=== PATIENT | female | born 1960 | race Asian ===

== ENCOUNTER 2020-06-13 07:55 | Outpatient (CLI) | payer OTHER, SELFPAY ==
--- NOTE | 2020-06-13 09:06 | ECG_ITS ---
Measurements Intervals [place] Rate: 82 P: 49 ME: 136 QRS: 30 QRSD: 71 T: 34 QT: 385 QTc: 450 Interpretive Statements SINUS RHYTHM BASELINE ARTIFACT- I, III, AVR, AVL, AVF NORMAL ECG Electronically Signed On 06-13-2020 10:01:45 CDT by Jamar Bean D.O.
[2020-06-13 09:32] LABS: Hematocrit 41.8 % (37.0-47.0); Hemoglobin 14.2 g/dL (12.0-15.0)
[2020-06-13 09:43] LABS: Anion Gap 8 mmol/L (8-16); Blood Urea Nitrogen 14 mg/dL (7-17); Calcium 9.2 mg/dL (8.4-10.2); Carbon Dioxide 26 mmol/L (22-30); Chloride 102 mmol/L (98-107); Estimated Glomerular Filt Rate > 60; Glucose 226 mg/dL (65-105); Potassium 4.3 mmol/L (3.4-5.0); Sodium 136 mmol/L (137-145)
== END 2020-06-13 07:56 | disposition home or self-care (01) ==
LOC: ANHSURGERY 07:59
PROVIDERS: Anesthesiology; PCP Family Medicine; Visit Provider Plastic Surgery
DX: Z01.818 Encounter for other preprocedural examination (principal); I10 Essential (primary) hypertension; E11.9 Type 2 diabetes mellitus without complications; D64.9 Anemia, unspecified
CPT/HCPCS: 36415; 80048; 85014; 85018; 93005

== ENCOUNTER 2020-09-11 11:30 | Emergency (ER) | payer OTHER, SELFPAY ==
--- NOTE | ~2020-09-11 | XR_ITS ---
XR chest 1V portable 09/11/2020 12:47 Indication: Chest pain Procedure: AP portable chest Comparison: No prior studies for comparison. Findings: Heart size normal. Shallow inspiration. No focal air space disease, pulmonary edema, pleura l effusion or suspected pneumothorax. No acute osseous abnormality. Impression: 1: No acute cardiopulmonary disease. Reviewed, dictated and finalized at location A. ITECTURAL TECHNICIAN Impression: 1: No acute cardiopulmonary disease.
[2020-09-11 11:36] VITALS: BP 140/81; PULSE 80; RESP 16; TEMP 36.7; O2SAT 100
--- NOTE | 2020-09-11 12:18 | ED.BACK ---
HPI - Back Pain/Injury General Chief Complaint: Back Pain/Injury Stated Complaint: back pain Time Seen by Provider: 09/11/20 11:56 Source: patient, family, RN notes reviewed and old records reviewed History of Present Illness HPI Narrative: 59-year-old female presents to emergency department for low back pain for the past 5 to 7 days. Patient states the pain radiates down to both her legs. She was seen at a local emergency department recently, and prescribed pain medication and steroids. She also states that she has been feeling weak. No chest pain or shortness of breath. She does report some chronic abdominal pain. No nausea or vomiting. No urinary complaints. No dysuria, frequency, or urgency. Related Data Home Medications Medication Instructions Recorded Confirmed atorvastatin 10 mg PO HS 06/13/20 06/13/20 ferrous sulfate 325 mg PO QAM 06/13/20 06/13/20 gabapentin 400 mg PO QID 06/13/20 06/13/20 hydrochlorothiazide 25 mg PO QAM 06/13/20 06/13/20 insulin glargine [Basaglar KwikPen 12 unit SUBCUT QAM 06/13/20 06/13/20 U-100 Insulin] insulin glargine [Basaglar KwikPen 16 unit SUBCUT QPM 06/13/20 06/13/20 U-100 Insulin] insulin lispro [Admelog U-100 8 unit SUBCUT TID 06/13/20 06/13/20 Insulin lispro] losartan 100 mg PO QAM 06/13/20 06/13/20 meloxicam 7.5 mg PO PRN PRN 06/13/20 06/13/20 multivitamin [Tab-A-Kelly] 1 tablet PO QAM 06/13/20 06/13/20 Allergies Allergy/AdvReac Type Severity Reaction Status Date / Time No Known Allergies Allergy Verified 06/13/20 08:10 Review of Systems Review of Systems: Narrative: CONSTITUTIONAL: Denies fever, chills, or sweats. EYES: Denies visual changes, redness, or discharge. ENT: Denies rhinorrhea, congestion, sore throat, or otalgia. CARDIOVASCULAR: Denies chest pain, palpitations, or edema. RESPIRATORY: Denies cough or dyspnea. GASTROINTESTINAL: Denies abdominal pain, nausea, vomiting, or diarrhea. GENITOURINARY: Denies dysuria or hematuria. SKIN: Denies rash or itching. MUSCULOSKELETAL: Denies back pain, joint pain, or myalgia. NEUROLOGIC: Denies headache, numbness, dizziness, or weakness. PSYCHIATRIC: Denies anxiety or depression. All systems reviewed & are unremarkable except as noted in HPI and below (ROS) PMFSH Social History Social History Smoking status: Never smoker Spiritual care concerns: No Exam Narrative: Exam Narrative: GENERAL: Well-appearing, well-nourished, and in no acute distress. HEAD: Normocephalic, atraumatic. EYES: PERRLA and EOMI. ENT: Nares clear, no rhinorrhea or epistaxis. Mucous membranes moist. NECK: Supple. CHEST: Clear to auscultation. No respiratory distress. HEART: Regular rate and rhythm. No murmur heard. Normal peripheral pulses. ABDOMEN: Soft, nontender, nondistended, normal active bowel sounds. EXTREMITIES: Normal range of motion. No edema. SKIN: Warm, dry, no rash. NEURO: No focal deficits. Alert and oriented x3. Equal sensation to light touch of lower extremities bilaterally PSYCH: Slow responses Course Reevaluation(s) Reevaluation #1: 14:35 -reevaluated patient, no new complaints. At this time, I see no emergent condition causing this patient's weakness symptoms. Patient had a CT done at a local emergency department, which showed L5/L1 disc bulging. This is likely causing her back pain. Patient is not having any bowel or bladder incontinence. Low suspicion for cauda equina or epidural abscess. Counseled patient and family to follow-up with primary care physician as soon as possible. Return to emergency department if symptoms persist, worsen, or other concerns. Vital Signs Vital signs: Vital Signs Temperature 36.7 C 09/11/20 11:36 Pulse Rate 80 09/11/20 11:36 Respiratory Rate 16 09/11/20 11:36 Blood Pressure 140/81 09/11/20 11:36 Pulse Oximetry 100 09/11/20 11:36 Temperature 36.7 C 09/11/20 11:36 Pulse Rate 84 09/11/20 14:57 Respi
--- NOTE | 2020-09-11 12:20 | ECG_ITS ---
Measurements Intervals [place] Rate: 72 P: 31 MN: 153 QRS: 11 QRSD: 81 T: 18 QT: 381 QTc: 418 Interpretive Statements SINUS RHYTHM EARLY PRECORDIAL R/S TRANSITION BORDERLINE T WAVE ABNORMALITY- INFERIOR LEADS BASELINE ARTIFACT- V6 BORDERLINE ECG Electronically Signed On 09-11-2020 13:56:06 ELECTRONICS MECHANIC by Jamar Bean D.O.
[2020-09-11] MEDS: SODIUM CHLORIDE 0.9% IV 1,000 ML 999 ML IV CONT (12:45)
[2020-09-11] MEDS: KETOROLAC 30 MG/ML VIAL (*BKC) IV PUSH (12:45)
[2020-09-11 13:05] LABS: Basophils Percent Auto 0.2 % (0.2-1.2); Eosinophils Percent Auto 0.1 % (0-4.4); Hematocrit 41.8 % (37.0-47.0); Hemoglobin 14.3 g/dL (12.0-15.0); Immature Granulocyte Absolute 0.06 K/mm3 (0.00-0.031); Immature Granulocyte Percent A 0.5 % (0-0.5); Lymphocytes Absolute Auto 2.51 K/mm3 (0.9-3.2); Lymphocytes Percent Auto 20.6 % (18.3-44.2); Mean Corpuscular HGB Conc 34.2 g/dl (32-36); Mean Corpuscular Hemoglobin 29.8 pg (26-34); Mean Corpuscular Volume 87.1 fl (80-100); Mean Platelet Volume 9.4 fl (7.4-10.4); Monocytes Absolute Auto 1.1 K/mm3 (0.1-0.6); Monocytes Percent Auto 8.6 % (2.6-8.5); Neutrophils Absolute Auto 8.6 K/mm3 (1.3-6.7); Platelet Count Result 371 k/mm3 (150-375); Red Cell Distribution Width 12.7 % (11.5-14.5); White Blood Count 12.2 K/mm3 (4.5-10.0)
[2020-09-11 13:38] LABS: Alanine Aminotransferase 38 U/L (4-35); Alkaline Phosphatase 106 U/L (38-126); Anion Gap 6 mmol/L (8-16); Aspartate Amino Transferase 43 U/L (14-36); Bilirubin,Total 0.7 mg/dL (0.2-1.3); Blood Urea Nitrogen 19 mg/dL (7-17); Calcium 9.3 mg/dL (8.4-10.2); Carbon Dioxide 32 mmol/L (22-30); Chloride 97 mmol/L (98-107); Estimated CRCL calculation 57 ml/min; Estimated Glomerular Filt Rate > 60; Glucose 183 mg/dL (65-105); Potassium 3.9 mmol/L (3.4-5.0); Sodium 135 mmol/L (137-145)
[2020-09-11 14:57] VITALS: BP 148/70; PULSE 84; RESP 16; O2SAT 100
== END 2020-09-11 14:59 | disposition home or self-care (01) ==
PROVIDERS: Emergency Provider Emergency Medicine; PCP Family Medicine
DX: M51.9 Unspecified thoracic, thoracolumbar and lumbosacral intervertebral disc disorder (principal); M54.5 Low back pain
CPT/HCPCS: 36415; 71045; 80053; 83735; 84443; 85025; 93005; 96361; 96374; 99284; J1885; J7030

== ENCOUNTER 2020-10-31 07:43 | Outpatient (CLI) | payer OTHER, SELFPAY ==
--- NOTE | ~2020-10-31 | MM_ITS ---
EXAMINATION: MM screening [place] BI w addi HISTORY: Screening mammogram TECHNIQUE: Craniocaudal and mediolateral oblique 3-D tomosynthesis images were obtained and synthetic 2-D images were generated. CAD analysis was submitted and interpreted. COMPARISON: No prior mammogram is available for comparison at this institution. BREAST PARENCHYMAL COMPOSITION: There are scattered areas of fibroglandular density. FINDINGS: RIGHT BREAST: There is no evidence of suspicious mass, calcification, or architectural distortion to suggest malignancy. LEFT BREAST: There is focal asymmetry in the middle third of the central breast. IMPRESSION: 1. Left breast focal asymmetry which may represent the patient's baseline however no comparison is cu rrently available. 2. Comparison with prior mammograms is necessary. BI-RADS Category 0: Incomplete: Needs comparison with prior mammograms. Reviewed, dictated and finalized at location A. ER BRACE BLOCK MACHINE OPERATOR IMPRESSION: 1. Left breast focal asymmetry which may represent the patient's baseline howev er no comparison is currently available. 2. Comparison with prior mammograms is necessary. BI-RADS Category 0: Incomplete: Needs comparison with prior mammograms.
== END 2020-10-31 07:44 | disposition home or self-care (01) ==
PROVIDERS: PCP Family Medicine; Visit Provider Family Medicine
DX: Z12.31 Encounter for screening mammogram for malignant neoplasm of breast (principal); R92.8 Other abnormal and inconclusive findings on diagnostic imaging of breast
CPT/HCPCS: 77063; 77067

== ENCOUNTER 2021-10-23 00:35 | Day surgery (SDC) | payer OTHER, SELFPAY ==
[2021-10-14 09:06] VITALS: BMI 24.5
--- NOTE | 2021-10-22 11:14 | PM.HPGS ---
History of Present Illness History of Present Illness Consent: Risks, benefits, and alternatives have been discussed and questions answered. Patient agrees to proceed with procedure. Chief complaint: constipation, rectal pain Narrative: Esdras Bustos is a 60 year old female who has developed severe constipation over the last couple of years. Review of Systems Review of Systems: All systems reviewed & are unremarkable except as noted in HPI and below PMFSH Past Medical History Medical History Abdominal pain Constipation Diabetes HLD (hyperlipidemia) HTN (hypertension) Hypothyroidism Social History Social History Smoking status: Never smoker Alcohol intake: never Substance use: never Substance use type: does not use Living arrangements: with family Spiritual care concerns: No Meds Home Medications and Allergies Home Medications Medication Instructions Recorded Confirmed Type atorvastatin 10 mg PO HS 06/13/20 10/14/21 History gabapentin 400 mg PO QID 06/13/20 10/14/21 History hydrochlorothiazide 25 mg PO QAM 06/13/20 10/14/21 History insulin glargine [Basaglar KwikPen 12 unit SUBCUT QAM 06/13/20 10/14/21 History U-100 Insulin] insulin glargine [Basaglar KwikPen 16 unit SUBCUT QPM 06/13/20 10/14/21 History U-100 Insulin] insulin lispro [Admelog U-100 8 unit SUBCUT TID 06/13/20 10/14/21 History Insulin lispro] losartan 100 mg PO QAM 06/13/20 10/14/21 History Allergies Allergy/AdvReac Type Severity Reaction Status Date / Time No Known Allergies Allergy Verified 10/23/21 07:44 Exam Resp: Auscultation: clear to auscultation bilaterally Cardio: Rate: regular rate Rhythm: regular rhythm GI: GI Palp: Yes Soft to palpation and No Tenderness to palpation present (GI) Assessment and Plan Assessment and plan (1) Constipation: Code(s): K59.00 - Constipation, unspecified Status: Acute Assessment and Plan: Colonoscopy with possible biopsy or polypectomy or cautery or injection of substances.
[2021-10-23 07:30] VITALS: BP 138/61; PULSE 88; RESP 18; TEMP 36.6; O2SAT 100; BMI 23.8
--- NOTE | 2021-10-23 07:48 | SUR.PREOP ---
Patient speaks limited Slovak. at bedside and translated for preop questions/assessment and also for consent.
[2021-10-23 08:06] LABS: Glucose Point of Care 122 mg/dl (65-105)
[2021-10-23] MEDS: LACTATED RINGERS 1,000 ML 150 ML IV CONT (08:10)
--- NOTE | 2021-10-23 08:23 | P.PNAN_ITS ---
Anes - Initial Pre Proc Eval Procedure: Operation Date: 10/23/21 08:45 Proposed Procedures p Colonoscopy - Rolando Howe MD Date/Time: 10/23/21 08:23 Surgeon: Rolando Howe MD Pre Op Diagnosis: constipation, rectal pain Patient Data Age: 60 Gender: F Height: 1.57 m Weight: 59 kg Last Vital Signs Temp 97.8 F 10/23/21 07:30 Pulse 88 10/23/21 07:30 Resp 18 10/23/21 07:30 BP 138/61 10/23/21 07:30 Pulse Ox 100 10/23/21 07:30 Allergies Allergy/AdvReac Type Severity Reaction Status Date / Time No Known Allergies Allergy Verified 10/23/21 07:44 Home Medications Medication Instructions Recorded Confirmed Type atorvastatin 10 mg PO HS 06/13/20 10/14/21 History gabapentin 400 mg PO QID 06/13/20 10/14/21 History hydrochlorothiazide 25 mg PO QAM 06/13/20 10/14/21 History insulin glargine [Basaglar KwikPen 12 unit SUBCUT QAM 06/13/20 10/14/21 History U-100 Insulin] insulin glargine [Basaglar KwikPen 16 unit SUBCUT QPM 06/13/20 10/14/21 History U-100 Insulin] insulin lispro [Admelog U-100 8 unit SUBCUT TID 06/13/20 10/14/21 History Insulin lispro] losartan 100 mg PO QAM 06/13/20 10/14/21 History Laboratory Tests 10/23/21 07:53 POC Capillary Glucose 122 mg/dl H mg/dl (65-105) Patient hx anesthesia problems: none Family hx anesthesia problems: none Results Review: All pre-operative results and documents have been reviewed as part of the pre-operative evaluation. [facility] Past Medical History Medical History (Updated 09/10/21 @ 11:26 by GARETH Raymundo) Abdominal pain Constipation Diabetes HLD (hyperlipidemia) HTN (hypertension) Hypothyroidism Social History Social History Smoking status: Never smoker Alcohol intake: never Substance use: never Substance use type: does not use Living arrangements: with family Spiritual care concerns: No Anes - Eval Final PreProcedure Day of Procedure 10/23/21 08:23 Patient weight: normal Heart: regular rate and rhythm Lungs: clear to auscultation Airway: Mallampati scale class II Neurological: alert and oriented Last oral intake: >/= 8 hours ASA classification: III Emergent: no Anesthetic plan: proceed Anesthesia type and monitoring: general GIVS and standard monitoring Results Review: All pre-operative results and documents have been reviewed as part of the pre-operative evaluation. Informed Consent: The patient's anesthetic plan and its attendant risks and benefits were discussed with the patient/family/POA. Questions were solicited and answers provided to the satisfaction of the patient/family/POA.
[2021-10-23 08:57] VITALS: BP 100/44; PULSE 90; RESP 26; O2SAT 92
[2021-10-23 09:07] VITALS: BP 97/45; PULSE 82; RESP 27; O2SAT 100
[2021-10-23 09:11] LABS: Glucose Point of Care 115 mg/dl (65-105)
[2021-10-23 09:17] VITALS: BP 101/46; PULSE 80; RESP 28; O2SAT 100
== END 2021-10-23 09:34 | disposition home or self-care (01) ==
PROVIDERS: PCP Family Medicine; Visit Provider Internal Medicine Gastroenterology
PROC: 0DJD8ZZ Inspection of Lower Intestinal Tract, Via Natural or Artificial Opening Endoscopic (ICD-10-PCS; CPT 45378; principal; 2021-10-23 08:45)
DX: Z12.11 Encounter for screening for malignant neoplasm of colon (principal); K64.8 Other hemorrhoids; K59.00 Constipation, unspecified; K62.89 Other specified diseases of anus and rectum; Z79.4 Long term (current) use of insulin; E11.9 Type 2 diabetes mellitus without complications; I10 Essential (primary) hypertension; E78.49 Other hyperlipidemia; E03.9 Hypothyroidism, unspecified
CPT/HCPCS: 45378; 82948; J2704; J7120

== ENCOUNTER 2022-05-18 07:23 | Outpatient (CLI) | payer OTHER, SELFPAY ==
--- NOTE | ~2022-05-18 | MM_ITS ---
EXAMINATION: MM screening [place] BI w addi HISTORY: Screening TECHNIQUE: Craniocaudal and mediolateral oblique 3-D tomosynthesis images were obtained and synthetic 2-D images were generated. CAD analysis was submitted and interpreted. COMPARISON: Comparison to multiple prior studies sequentially, with oldest reviewed study dated 04/14. BREAST PARENCHYMAL COMPOSITION: There are scattered areas of fibroglandular density. FINDINGS: There is no evidence of suspicious mass, calcification, or architectural distortion to sugg est malignancy in either breast. There has been no suspicious interval change. IMPRESSION: 1. No mammographic evidence of malignancy. 2. Recommend routine screening mammography in one year. BI-RADS Category 1: Negative Reviewed, dictated and finalized at location A.
== END 2022-05-18 07:24 | disposition home or self-care (01) ==
LOC: ANHIMG 07:25
PROVIDERS: PCP Family Medicine; Visit Provider Family Medicine
DX: Z12.31 Encounter for screening mammogram for malignant neoplasm of breast (principal)
CPT/HCPCS: 77063; 77067

== ENCOUNTER 2023-04-27 14:40 | Outpatient (CLI) | payer OTHER, SELFPAY ==
--- NOTE | ~2023-04-27 | XR_ITS ---
Lumbosacral Spine: AP, oblique, and lateral views Clinical History: Pain Findings: The normal lordotic curve is maintained. The vertebral bodies and posterior elements are i ntact. The intervertebral disc spaces are preserved. There is moderate to advanced facet arthropathy at L4-L5 and L5-S1. The sacroiliac joints are normally outlined. Impression: Moderate to advanced facet arthropathy at L4-L5 and L5-S1. Reviewed, dictated and finalized at location . Impression: Moderate to advanced facet arthropathy at L4-L5 and L5-S1.
--- NOTE | ~2023-04-27 | XR_ITS ---
EXAM: XR knee RT 3V, XR knee LT 3V DATE: 04/27/2023 15:22 HISTORY: PAIN OF BILATERAL KNEE JOINTS . COMPARISON: None available. FINDINGS: Decreased mineralization. No fracture or dislocation. No lytic or blastic lesion. Moderate bilateral medial joint space narrowing. Mild tricompartmental osteophytosis. No erosion or periostea l change. Vascular calcifications. IMPRESSION: Tricompartmental bilateral knee osteoarthritis, moderate in the medial compartments. Reviewed, dictated and finalized at location K. IMPRESSION: Tricompartmental bilateral knee osteoarthritis, moderate in the med ial compartments.
== END 2023-04-27 14:41 | disposition home or self-care (01) ==
PROVIDERS: PCP Family Medicine; Visit Provider Family Medicine
DX: M54.50 Low back pain, unspecified (principal); M17.0 Bilateral primary osteoarthritis of knee
CPT/HCPCS: 72110; 73562

== ENCOUNTER 2023-05-24 10:05 | Emergency (ER) | payer OTHER, SELFPAY ==
--- NOTE | ~2023-05-24 | XR_ITS ---
Portable chest x-ray Comparison: 09/11/2020 Clinical History: Fever, weakness Findings: Lungs are clear, without focal consolidation or pleural effusion. Cardiomediastinal silho uette is stable. Bones and soft tissues are unremarkable. Impression: Normal chest. Reviewed, dictated and finalized at [facility]. Impression: Normal chest.
--- NOTE | 2023-05-24 10:26 | ECG_ITS ---
Measurements Intervals [place] Rate: 97 P: 38 TX: 142 QRS: 29 QRSD: 86 T: 40 QT: 344 QTc: 438 Interpretive Statements SINUS RHYTHM NORMAL ECG COMPARED TO ECG 09/11/2020 12:42:03 NO SIGNIFICANT CHANGES Electronically Signed On 05-24-2023 12:05:08 CDT by Liam Sharma M.D.
[2023-05-24 10:35] VITALS: BP 126/60; PULSE 98; RESP 20; TEMP 38.3; O2SAT 99
[2023-05-24 11:25] LABS: Basophils Percent Auto 0.5 % (0.2-1.2); Eosinophils Percent Auto 0.2 % (0-4.4); Hematocrit 36.9 % (37.0-47.0); Hemoglobin 12.5 g/dL (12.0-15.0); Immature Granulocyte Absolute 0.03 K/mm3 (0.00-0.031); Immature Granulocyte Percent A 0.5 % (0-0.5); Lymphocytes Absolute Auto 0.93 K/mm3 (0.9-3.2); Lymphocytes Percent Auto 16.5 % (18.3-44.2); Mean Corpuscular HGB Conc 33.9 g/dl (32-36); Mean Corpuscular Hemoglobin 29.7 pg (26-34); Mean Corpuscular Volume 87.6 fl (80-100); Mean Platelet Volume 9.6 fl (7.4-10.4); Monocytes Absolute Auto 0.9 K/mm3 (0.1-0.6); Monocytes Percent Auto 16.2 % (2.6-8.5); Neutrophils Absolute Auto 3.7 K/mm3 (1.3-6.7); Neutrophils Percent Auto 66.1 % (45.5-73.1); Platelet Count Result 245 k/mm3 (150-375); Red Blood Count 4.21 M/mm3 (4.2-5.4); Red Cell Distribution Width 13.4 % (11.5-14.5); White Blood Count 5.6 K/mm3 (4.5-10.0)
[2023-05-24 11:35] LABS: Lactic Acid Reflex 1.6 mmol/L (0.7-2.0)
[2023-05-24 11:39] LABS: Appearance Urine Clear (Clear); Bacteria Urine None Seen /hpf; Bilirubin Urine Negative (Negative); Blood Urine Negative (Negative); Color Urine Yellow (Yellow); Glucose Urine UA Negative (Negative); Ketones Urine Negative (Negative); Leukocyte Esterase Ur 1+ LEU/UL (Negative); Need Manual Microscopic Reviewed; Nitrate Urine Negative (Negative); Non Pathogenic Casts 0-2; Protein Urine Negative (Negative); RBC Urine 0-2 /hpf (0-2); Specific Grav Ur 1.006 (1.001-1.035); Squamous Epithelial Cell Urine Occasional /hpf (Few); Urobilinogen Urine 0.2 mg/dL (<2.0); WBC Urine 0-5 /hpf; pH Urine 7.5 (5.0-9.0)
[2023-05-24 11:41] LABS: Add Urine Microscopic? YES
[2023-05-24 11:46] LABS: Alanine Aminotransferase 34 U/L (6-35); Albumin Level 4.5 g/dL (3.5-5.1); Alkaline Phosphatase 86 U/L (38-126); Anion Gap 14 mmol/L (8-16); Aspartate Amino Transferase 40 U/L (14-36); Bilirubin,Total 0.7 mg/dL (0.2-1.3); Blood Urea Nitrogen 14 mg/dL (7-17); Carbon Dioxide 24 mmol/L (22-30); Chloride 95 mmol/L (98-107); Estimated CRCL calculation 48 ml/min; Estimated Glomerular Filt Rate > 60; Glucose 198 mg/dL (65-110); Lipase 166 U/L (23-300); Potassium 3.6 mmol/L (3.4-5.0); Sodium 133 mmol/L (137-145)
[2023-05-24] MEDS: SODIUM CHLORIDE 0.9% IV 1,000 ML 999 ML IV CONT (11:46)
[2023-05-24] MEDS: IBUPROFEN IV 400 MG in SODIUM CHLORIDE 0.9% IV 100 ML 200 MG IVPB (11:48)
--- NOTE | 2023-05-24 11:58 | ED.WEAKNESS ---
HPI - Weakness General Chief complaint: Weakness Stated complaint: weakness, all over pain Time Seen by Provider: 05/24/23 10:54 Source: patient Mode of arrival: ambulatory Limitations: no limitations History of Present Illness HPI Narrative: This is a 62-year-old female that presents to the emergency department for generalized weakness. Reports myalgias over the last 2 days. Reports feeling unsteady when walking. Patient noted to be febrile in the ED. Reporting some dysuria. Denies cough, chest pain, shortness of breath, abdominal pain, vomiting, or diarrhea. Related Data Home Medications Medication Instructions Recorded Confirmed atorvastatin 10 mg tablet 10 mg PO HS 06/13/20 10/14/21 gabapentin 400 mg capsule 400 mg PO QID 06/13/20 10/14/21 hydrochlorothiazide 25 mg tablet 25 mg PO QAM 06/13/20 10/14/21 insulin glargine 100 unit/mL (3 12 unit subcut QAM 06/13/20 10/14/21 mL) subcutaneous pen (Basaglar KwikPen U-100 Insulin) insulin glargine 100 unit/mL (3 16 unit subcut QPM 06/13/20 10/14/21 mL) subcutaneous pen (Basaglar KwikPen U-100 Insulin) insulin lispro 100 unit/mL 8 unit subcut TID 06/13/20 10/14/21 subcutaneous solution (Admelog U-100 Insulin lispro) losartan 100 mg tablet 100 mg PO QAM 06/13/20 10/14/21 Allergies Allergy/AdvReac Type Severity Reaction Status Date / Time No Known Allergies Allergy Verified 05/24/23 10:34 Review of Systems Review of Systems: CONSTITUTIONAL: Reports fever EYES: Denies visual changes ENT: Denies rhinorrhea, congestion, sore throat CARDIOVASCULAR: Denies chest pain, or edema. RESPIRATORY: Denies cough or dyspnea. GASTROINTESTINAL: Denies abdominal pain, nausea, vomiting, or diarrhea. GENITOURINARY: Reports dysuria MUSCULOSKELETAL: Reports back pain, joint pain, and myalgia. NEUROLOGIC: Reports generalized weakness. All systems reviewed & are unremarkable except as noted in HPI and below PMFSH Past Medical History Medical History Abdominal pain Constipation Diabetes HLD (hyperlipidemia) HTN (hypertension) Hypothyroidism Social History Social History Smoking status: Never smoker Alcohol intake: never Substance use: never Substance use type: does not use Living arrangements: with family Spiritual care concerns: No Exam Narrative: GENERAL: Well-appearing, well-nourished, and in no acute distress. HEAD: Normocephalic, atraumatic. EYES: PERRLA and EOMI. ENT: Nares clear, no rhinorrhea or epistaxis. Mucous membranes moist. Oropharynx without tonsillar hypertrophy exudate or other lesions. Bilateral TMs pearly grey non-bulging NECK: Supple. No adenopathy or masses. CHEST: Clear to auscultation. No respiratory distress. No wheezes rales or rhonchi HEART: Regular rate and rhythm. No murmur heard. Normal peripheral pulses. ABDOMEN: Soft, nontender, nondistended, normal active bowel sounds. EXTREMITIES: Normal range of motion. No edema. SKIN: Warm, dry, no rash. NEURO: No focal deficits. Alert and oriented x3. Cranial nerves II through XII grossly intact PSYCH: Normal mood and affect Course Course Emergency Course: Patient and family updated on workup and agree with plan of care Vital Signs Vital signs: Vital Signs Temperature 101 F H 05/24/23 10:35 Pulse Rate 98 05/24/23 10:35 Respiratory Rate 20 05/24/23 10:35 Blood Pressure 126/60 05/24/23 10:35 Pulse Oximetry 99 05/24/23 10:35 Oxygen Delivery Room Air 05/24/23 10:35 Temperature 101 F H 05/24/23 10:35 Pulse Rate 98 05/24/23 10:35 Respiratory Rate 20 05/24/23 10:35 Blood Pressure 126/60 05/24/23 10:35 Pulse Oximetry 99 05/24/23 10:35 Oxygen Delivery Room Air 05/24/23 10:35 MDM - Weakness MDM Narrative Medical decision making narrative: Patient presents to the emergency department for myalgias present over t
[2023-05-24 12:06] LABS: Influenza A QL RT-PCR Positive (Negative); Influenza B QL RT-PCR Negative (Negative); SARS-CoV-2 RNA PCR Negative (Negative)
[2023-05-24 13:28] VITALS: BP 125/63; PULSE 83; RESP 18; O2SAT 98
== END 2023-05-24 13:30 | disposition home or self-care (01) ==
PROVIDERS: Emergency Provider Physician Assistant; PCP Family Medicine
DX: J10.1 Influenza due to other identified influenza virus with other respiratory manifestations (principal); E78.5 Hyperlipidemia, unspecified; I10 Essential (primary) hypertension; E03.9 Hypothyroidism, unspecified; E11.9 Type 2 diabetes mellitus without complications; Z20.822 Contact with and (suspected) exposure to COVID-19
CPT/HCPCS: 36415; 71045; 80053; 81001; 83605; 83690; 85025; 87636; 93005; 96361; 96365; 99284; J1741; J7030

== ENCOUNTER 2023-08-03 10:00 | Outpatient (CLI) | payer OTHER, SELFPAY ==
--- NOTE | ~2023-08-03 | MM_ITS ---
EXAMINATION: MM screening [place] BI w addi HISTORY: Screening TECHNIQUE: Craniocaudal and mediolateral oblique 3-D tomosynthesis images were obtained and synthetic 2-D images were generated. CAD analysis was submitted and interpreted. COMPARISON: Comparison to multiple prior studies sequentially, with oldest reviewed study dated 04/14. BREAST PARENCHYMAL COMPOSITION: There are scattered areas of fibroglandular density. FINDINGS: The right breast is stable without evidence for malignancy. There are developing asymmetrie s in the central aspect of the left breast, middle third. IMPRESSION: 1. Evolving left breast asymmetries. 2. Additional mammographic views and possible breast ultrasound are recommended. BI-RADS Category 0: Incomplete: Needs additional imaging evaluation. Reviewed, dictated and finalized at location A. INSPECTOR IMPRESSION: 1. Evolving left breast asymmetries. 2. Additional mammographic views and possible breast ultrasound are recommended . BI-RADS Category 0: Incomplete: Needs additional imaging evaluation.
== END 2023-08-03 10:01 | disposition home or self-care (01) ==
LOC: ANHIMG 10:02
PROVIDERS: PCP Family Medicine; Visit Provider Family Medicine
DX: Z12.31 Encounter for screening mammogram for malignant neoplasm of breast (principal); R92.8 Other abnormal and inconclusive findings on diagnostic imaging of breast
CPT/HCPCS: 77063; 77067

== ENCOUNTER 2023-08-27 08:15 | Outpatient (RCR) | payer OTHER, SELFPAY ==
--- NOTE | 2023-08-16 10:45 | PTOPEVAL1 ---
Assessment and note entered by Teodoro Patel, PT Evaluation Information Assessment Status Evaluation Diagnosis Chronic low back pain Onset 2+ years Subjective Information Reports that she has been having a lot of back, leg, and neck pain. Pain is in both legs. 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 Pain will radiate into her feet when it is bad. Not currently on any exercise routine. No pain medication at this time. Reported Pain Level Pain Score 8: Self Report Assessment PT Clinical Summary Patient presents with signs and symptoms consistent with discogenic low back pain. She presents with significant functional mobility limitation in kay[place] hips with the left being worse. She will benefit from skilled therapy inclusive of gross hip mobility improvement and hip/core strengthening with transition to body mechanics to prevent pain with work related activity. Plan of Care Interventions Electrical Stimulation,Gait Training,Hot Pack/Cold Pack,Manual Therapy,Mechanical Traction,Neuro Re- education,Therapeutic Activities,Therapeutic Exercise PT Services Indicated Yes Treatment Frequency and 2x/week for 6 weeks Duration These treatments will address the objective and functional deficits as defined above. The patient will be advanced safely and appropriately in order for the patient to progress towards his/her prior level of function. Additional exercises will be introduced and as well as a comprehensive home exercise program upon discharge, if needed, ?to ensure carryover of functional gains achieved in the clinic. This treatment plan has been reviewed and agreement upon by the patient.
--- NOTE | 2023-08-16 10:45 | OPREHPOC ---
Outpatient Therapy Plan of Care This is a Multidisciplinary Plan of Care that may contain components documented by all disciplines (PT, OT, and ST.) PT Problem 1 PT Problem #1 Knowledge Deficit PT Goal 1 Goal Independent with HEP Target Visit 4 PT Problem 2 PT Problem #2 Pain PT Goal 1 Goal Report no pain greater than 1/10 when rising in the morning Target Visit 8 PT Problem 3 PT Problem #3 Impaired Range of Motion PT Goal 1 Goal Improve [place] hip abduction ROM to 40 degrees to reduce hip mobility restriction with gait Target Visit 12 PT Goal 2 Goal Improve [place] hip external rotation to 40 degrees to allow for improved squatting ability to disassociate from lumbar mobilization Target Visit 8 PT Problem 4 PT Problem #4 Impaired Gait PT Goal 1 Goal Patient will ambulate with even stride length bilaterally Target Visit 12 PT Problem 5 PT Problem #5 Impaired Functional Mobil PT Goal 1 Goal Patient will demonstrate 5 lifts of 20# with improved body mechanics and no increase in back pain Target Visit 12
--- NOTE | 2023-08-30 08:36 | PTOPDC ---
Assessment and note entered by Teodoro Patel, PT Evaluation Information Assessment Status Discharge - Pt Not Present Diagnosis Chronic low back pain Onset 2+ years Subjective Information Reports that she has been having a lot of back, leg, and neck pain. Pain is in both legs. 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 Pain will radiate into her feet when it is bad. Not currently on any exercise routine. No pain medication at this time. Assessment PT Clinical Summary Patient will be discharged from therapy at this time as she will be leaving the country for an extended period of time. Please refer to last treatment note for discharge status. Plan of Care PT Services Indicated Yes
== END 2023-08-30 10:10 | disposition home or self-care (01) ==
LOC: ANHPT 08:15
PROVIDERS: PCP Family Medicine; Visit Provider Family Medicine
DX: M54.50 Low back pain, unspecified (principal)
CPT/HCPCS: 97110; 97140; 97161; 97530

== ENCOUNTER 2023-11-01 10:21 | Outpatient (CLI) | payer OTHER, SELFPAY ==
--- NOTE | ~2023-11-01 | MM_ITS ---
EXAMINATION: MM diagnostic camilla LT w addi HISTORY: Focal asymmetry of the left breast on screening mammogram TECHNIQUE: Additional 3-D tomosynthesis images of the left breast were performed and synthetic 2-D im ages were generated. CAD analysis was submitted and interpreted. COMPARISON: 08/03/2023, 05/18/2022, 10/31/2020 BREAST PARENCHYMAL COMPOSITION: There are scattered areas of fibroglandular density. FINDINGS: There is a return to baseline fibroglandular appearance with spot compression of the left b reast in the area questioned on screening mammogram. IMPRESSION: 1. No mammographic evidence of malignancy. 2. Recommend routine screening mammography in one year. BI-RADS Category 1: Negative Reviewed, dictated and finalized at location A. SPLANT CASE MANAGER
== END 2023-11-01 10:22 | disposition home or self-care (01) ==
LOC: ANHIMG 10:22
PROVIDERS: PCP Family Medicine; Visit Provider Family Medicine
DX: R92.8 Other abnormal and inconclusive findings on diagnostic imaging of breast (principal)
CPT/HCPCS: 77061; 77065; G0279

== ENCOUNTER 2024-01-19 08:00 | Outpatient (RCR) | payer OTHER, SELFPAY ==
--- NOTE | 2023-12-16 16:16 | OPREHPOC ---
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 PT Problem 2 PT Problem #2 Pain PT Goal 1 Goal 1* pt report pain rating at worst of 7/10 2* radicular pain to R knee at worst 3* radicular pain to L knee at worst 4* self assessment Oswestry rating of 18% limitation PT Problem 3 PT Problem #3 Impaired Flexibility PT Goal 1 Goal pt perform without an increase in pain reported: 1* supine R hip flexion 2* supine L hip flexion 3* R hamstring stretch with SLR to 70' 4* L hamstring stretch with SLR to 70' PT Problem 4 PT Problem #4 Impaired Strength PT Goal 1 Goal improve strength of trunk and hips, to improve posture and stability to spine 1* pt perform 20 reps of mat strengthening exercises
--- NOTE | 2023-12-16 16:17 | PTOPEVAL1 ---
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 She reports pain limits activity of work, home tasks, sleeping. Oswestry self assessment rating of 24% limitation in activity level. 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 She speaks [place], but her assisted with some comprehension issues. With the evaluation: pain is increased with: standing trunk flexion and extension,; supine R hip flexion & IR motions; supine L hip flexion, IR and ER motions and hamstring stretch with supine SLR R and L ; tenderness reported over entire R and L lumbar and sacral areas. Discussed aquatic exercises with pt, she is not interested in them. Skilled PT services are indicated for modalities to decrease pain and spasms; therapeutic exercises to increase trunk and hip strength with education for HEP and body mechanics with house keeping job tasks. Plan of Care Interventions Electrical Stimulation,Hot Pack/Cold Pack,Manual Thera
--- NOTE | 2023-12-16 16:18 | PCPTNOTE ---
pt reports she will be out of town at her daughter's from December 22 to December 27;
--- NOTE | 2024-01-19 11:59 | PTOPDC ---
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 going to see dr. Reported Pain Level Pain Score Self Report Additional Pain Score Comments pain range of the past week 3-9/10; radicular into both R and L LE to foot- intermittent; decrease pain: lie down, rest, heat, over the counter meds increase pain: working, lifting Assessment PT Clinical Summary Esdras has received 8 PT sessions. Compared to the initial evaluation: pain rating from 4-10/10 to 3-9/10; continues to have radicular pain into both LE's to feet intermittent ; self assessment Oswestry rating from 24% to 46% limitation in activity level; sleeping and activity level are disrupted due to pain; Slight increase in hamstring length on R and L, but still painful; supine R and L hip flexion increase her pain in back; Max lifting with both UE's, waist /floor height, 14# then back pain increases. The mechanical traction did give her some pain relief. 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 The goals were partially achieved. Discharge PT services. She is to continue with HEP and contact dr for follow up appointment. She may require additional imaging and/ or referral for pain management or neurologist. Plan of Care PT Services Indicated No
== END 2024-01-19 12:46 | disposition home or self-care (01) ==
LOC: ANHPT 08:00
PROVIDERS: PCP Family Medicine; Visit Provider Family Medicine
DX: M54.50 Low back pain, unspecified (principal)
CPT/HCPCS: 97012; 97110; 97140; 97161; 97530

== ENCOUNTER 2024-02-24 08:10 | Outpatient (CLI) | payer OTHER, SELFPAY ==
--- NOTE | ~2024-02-24 | US_ITS ---
EXAMINATION: US thyroid DATE: 02/24/2024 08:35 INDICATION: Goiter. Thyroid nodule. TECHNIQUE: Multiple ultrasound images of the thyroid were obtained. COMPARISON: None. FINDINGS: The right thyroid lobe measures 2.9 x 0.7 x 1.0 cm. The left thyroid lobe measures 3.3 x 0.7 x 1.3 c m. There is normal echotexture and echogenicity throughout the thyroid gland. No discrete nodules id entified. Normal vascular flow is present. IMPRESSION: 1. Normal thyroid. Reviewed, dictated and finalized at location A. IMPRESSION: 1. Normal thyroid.
== END 2024-02-24 08:11 | disposition home or self-care (01) ==
LOC: ANHIMG 08:12
PROVIDERS: PCP Family Medicine; Visit Provider Internal Medicine
DX: E04.1 Nontoxic single thyroid nodule (principal); E11.9 Type 2 diabetes mellitus without complications; M81.0 Age-related osteoporosis without current pathological fracture
CPT/HCPCS: 76536

== ENCOUNTER 2024-03-09 14:21 | Outpatient (CLI) | payer OTHER, SELFPAY ==
--- NOTE | ~2024-03-09 | DEXA_ITS ---
Bone Density Report Name: HEYDI CABELLO Age: 63 Sex: Female Ethnicity: White Date of : 1960 Indication: postmenopausal; screening for osteoporosis; height loss; Referring Provider: [place] KAUR Study: Bone densitometry was performed. Exam Date: March 09, 2024 Accession number: [id number] Bone Density: Region BMD T-score Z-score Classification AP Spine(L1-L4) 0.794 -2.3 -0.7 Osteopenia Femoral Neck (Left) 0.717 -1.2 0.2 Osteopenia Total Hip (Left) 0.831 -0.9 0.2 Normal Femoral Neck (Right) 0.686 -1.5 -0.1 Osteopenia Total Hip (Right) 0.848 -0.8 0.3 Normal Total Hip Mean 0.840 -0.9 0.3 Normal World Health Organization criteria for BMD impression classify patients as: Normal (T-score at or above -1.0), Osteopenia (T-score between -1.0 and -2.5), or Osteoporosis (T-score at or below -2.5). 10-year Fracture Risk(1): Major Osteoporotic Fracture 8.3% Hip Fracture 0.7% Reported Risk Factors: [place] (), Neck BMD=0.686, BMI=24.7 (1) FRAX(R) Version 3.08. Fracture probability calculated for an untreated patient. Fracture probability may be lower if the patient has received treatment. Clinical Information Provided by Patient: Has used the following medications: Vitamin D Patient maximum height was 63 Menopause Age: 47 No regular weight bearing exercise Does not regularly consume dairy products Drinks caffeinated beverages Onset of menses at age 16 Number of children 3 Impression: The patient has low bone mass, based on the Total Spine T-score. The patient has an estimated ten-year risk of hip fracture of 0.7% and an estimated ten-year risk of major fracture of 8.3%, based on the WHO FRAX algorithm. Discussion: BONE DENSITY IS LOW AT ONE OR MORE SKELETAL SITES. This patient's lowest T-score is low at one or more skeletal sites. It meets the World Health Organization's (WHO) criteria for ?low bone mass? (T-score between -1.0 and -2.5). The patient's 10-year risk of fracture as calculated by FRAX is less than the threshold where pharmacological therapy is recommended by the National Osteoporosis Foundation (NOF). However, all treatment decisions require clinical judgment and consideration of individual patient factors, including patient preferences, comorbidities, previous drug use, risk factors not captured in the FRAX model (e.g., frailty, falls, vitamin D deficiency, increased bone turnover, interval significant decline in bone density) and possible under or overestimation of fracture risk by FRAX. The patient should follow a healthful lifestyle (good nutrition with adequate calcium and vitamin D, and appropriate weight-bearing exercise). Follow-Up: Consider repeating this study in 2 to 3 years to reassess this patient's status, or sooner if there is some new
== END 2024-03-09 14:22 | disposition home or self-care (01) ==
PROVIDERS: PCP Family Medicine; Visit Provider Internal Medicine
DX: E11.69 Type 2 diabetes mellitus with other specified complication (principal); E78.5 Hyperlipidemia, unspecified; M81.0 Age-related osteoporosis without current pathological fracture; M85.89 Other specified disorders of bone density and structure, multiple sites
CPT/HCPCS: 77080

== ENCOUNTER 2024-08-09 14:54 | Outpatient (CLI) | payer OTHER, SELFPAY ==
--- NOTE | ~2024-08-09 | MR_ITS ---
EXAMINATION: MR lumbar spine wo con DATE: 08/09/2024 15:34 INDICATION: Chronic low back pain. TECHNIQUE: Magnetic resonance imaging (MRI) of the lumbar spine was performed without intravenous con trast. Sequences included sagittal T2-weighted FSE, sagittal T2-weighted FS FSE, sagittal T1-weighted FSE, and axial T2-weighted FSE. COMPARISON: Lumbar spine radiographs 04/27/2023 FINDINGS: There is 4 degrees levocurvature of lumbar spine. Vertebral body heights are normal. There is mildly decreased disc height at L5-S1. The distal spinal cord signal intensity is normal. The conu s medullaris is at L1. The following disc levels are specifically discussed: L1-L2: The disc does not extend beyond the endplate margin. There is mild right facet joint osteoarth ritis. There is no neural foraminal stenosis. There is no central canal stenosis. L2-L3: The disc does not extend beyond the endplate margin. There is mild bilateral facet joint osteo arthritis. There is no neural foraminal stenosis. There is no central canal stenosis. L3-L4: The disc does not extend beyond the endplate margin. There is mild right and moderate left fac et joint osteoarthritis. There is no neural foraminal stenosis. There is no central canal stenosis. L4-L5: The disc is bulging with superimposed left central extrusion. There is severe bilateral facet joint osteoarthritis. There is mild bilateral neural foraminal stenosis. There is mild central canal stenosis. L5-S1: The disc is bulging with superimposed right central extrusion. There is severe bilateral facet joint osteoarthritis. There is moderate bilateral neural foraminal stenosis. There is mild central c anal stenosis. IMPRESSION: 1. Moderate lumbar spondylosis. Reviewed, dictated and finalized at location A. 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
== END 2024-08-09 14:55 | disposition home or self-care (01) ==
PROVIDERS: PCP Family Medicine; Visit Provider Family Medicine
DX: M43.06 Spondylolysis, lumbar region (principal); G89.29 Other chronic pain
CPT/HCPCS: 72148

== ENCOUNTER 2024-12-06 12:53 | Emergency (ER) | payer OTHER, SELFPAY ==
[2024-12-06 13:05] VITALS: BP 169/73; PULSE 88; RESP 18; TEMP 36.6; O2SAT 100
--- NOTE | 2024-12-06 13:19 | ED.BACK ---
HPI - Back Pain/Injury General Chief Complaint: Back Pain/Injury Stated Complaint: back pain shooting down left leg x1w Time Seen by Provider: 12/06/24 13:08 History of Present Illness HPI Narrative: 64-year-old female presenting to the emergency department accompanied by her for concerns of acute on chronic lumbago/back pain. Patient has been having sciatica symptoms for several weeks. She was diagnosed with lumbar spondylosis on MRI and July 2024. At that MRI there was no myelopathy or signs of cord compression, she had moderate disc bulging throughout the lumbar spine. Patient denies any new injury or trauma. She states that for last 2 weeks she has been having exacerbation of her left-sided sciatica pain. Denies taking any medications [id number] for this pain. She has tried some pads for pain control without success. She has gone through physical therapy. Her primary doctor said she might need pain management but has not established referral for this yet. Patient denies any saddle anesthesia or incontinence. States that it hurts especially at night when she lays flat on her back. Denies any fever, chills, abdominal pain, flank pain. No weakness, pain limiting ambulation. Related Data Home Medications ?Medication ?Instructions ?Recorded ?Confirmed ?Last Taken ?Type hydrochlorothiazide 25 mg tablet 25 mg PO QAM 06/13/20 12/08/23 10/21/21 History ergocalciferol (vitamin D2) 1,250 1,250 mcg PO WEEKLY 12/08/23 12/08/23 Unknown History mcg (50,000 unit) capsule multivitamin [Tab-A-Kelly] PO 12/08/23 12/08/23 Unknown History Allergies Allergy/AdvReac Type Severity Reaction Status Date / Time No Known Allergies Allergy Verified 12/06/24 13:06 Review of Systems Review of Systems: As reviewed above in HPI [facility] Past Medical History Medical History Hypothyroidism HLD (hyperlipidemia) HTN (hypertension) Diabetes Constipation Abdominal pain Family History Family History Sibling Hypertension Social History Social History Smoking status: Never smoker Alcohol intake: never Substance use: never Substance use type: does not use Do You Feel Safe in your Home?: Yes Lack of Transportation: No Current Housing: Decline to Answer Concerned About Future Housing: Decline to Answer Difficulty Paying Gas/Electric Bills: Decline to Answer Difficulty Paying for Meds: Decline to Answer Currently Unemployed: Decline to Answer Difficulty w/ Childcare or Family Care: Decline to Answer Living arrangements: with family Spiritual care concerns: No Exam Narrative: GENERAL: [Well-appearing, well-nourished, and in no acute distress.] HEAD: [Normocephalic, atraumatic.] EYES: [PERRLA and EOMI.] ENT: Nares clear, no rhinorrhea or epistaxis. Mucous membranes moist. NECK: Supple. CHEST: [Clear to auscultation. No respiratory distress.] HEART: [Regular rate and rhythm]. No murmur heard. [Normal peripheral pulses.] ABDOMEN: [Soft, nondistended], [nontender], [No rigidity or guarding] EXTREMITIES: Normal range of motion. [No edema.] Tenderness to palpation of the left paraspinal muscles. No midline tenderness to the spinal column, no step-offs deformities. SKIN: Warm, dry, no rash. NEURO: [No focal deficits]. Alert and oriented [x3.] No incontinence, no saddle anesthesia. EHL and FHL 5/5 strength. Able to hold extensor mechanism of the left lower extremity against gravity. Able to flex at the hip and knee. Ambulatory. PSYCH: [Normal mood and affect.] Course Vital Signs Vital signs: Vital Signs Temperature 36.6 C 12/06/24 13:05 Pulse Rate 88 12/06/24 13:05 Respiratory Rate 18 12/06/24 13:05 Blood Pressure 169/73 H 12/06/24 13:05 Pulse Oximetry 100 12/06/24 13:05 Temperature 36.6 C 12/06/24 13:05 Pulse Rate 88 12/06/24 13:05 Respiratory Rate 18 12/06/24 13:05 Blood Pressure 169/73 H 12/06/24 13:05 Pulse Oximetry 100 12/06/24 13:05 MDM - Back Pain/Injury MDM Narrative Medical decision making narrative: 64-year-old female presenting with acute exacerbation of chronic lumbar back pain. She was diagnosed with lumbar spondylosis on MRI 4 months prior. She has gone to physical therapy but has not taken any [id number] pain medications. Told by her PCP to get referral to pain management but this has not happened yet. Patient has an unremarkable physical examination with no red flag signs of cauda equina or conus medullaris or any cord compression on her history or physical exam. She has normal vital signs aside from some stable hypertension. No tachycardia, fever or hypoxia. No midline lumbar tenderness or step-offs. No trauma or injury. No saddle anesthesia or incontinence. EHL and FHL full strength, able to ambulate, extensor mechanism left legs intact. Straight leg raise positive on the left side. Will treat the patient symptomatically with intramuscular Decadron injection as well as 0.5 mg Dilaudid. She will be given prescription medications for prednisone, Robaxin and lidocaine patches and interventional pain specialist referral was provided to the patient. I talked to the patient and the family about the next steps as well as the red flags to watch out for and they were comfortable with plan of care for outpatient referral and discharge at this time. Medical Records Attestation: I reviewed the patient's medical records. Imaging Data Attestation: I personally reviewed and interpreted this imaging study as follows: Radiologist's impression: Lumbar spondylosis on MRI 08/09/2024 Discharge Plan Discharge Clinical Impression: Acute exacerbation of chronic low back pain, Lumbar spondylosis Instructions: Sciatica (ED), Acute Low Back Pain (ED), Lower Back Exercises (ED) Additional Instructions: We will send you home with a combination medications to try including steroids, Robaxin lidocaine patches. Will refer due to an interventional pain specialist here in the area. Call and make an appointment to schedule with them. Return to the ER if you have increased pain in your back, you develop lower extremity weakness/numbness/paralysis, you have numbness or tingling in your private parts, or you are unable to control your ability to urinate/stool. Patient Language: Darryl Prescriptions: New methocarbamol 750 mg tablet 750 mg PO TID PRN (Reason: pain) Qty: 20 0RF prednisone 50 mg tablet 50 mg PO DAILY 5 Days Qty: 5 0RF lidocaine 5 % adhesive patch,medicated 1 patch topical DAILY Qty: 15 0RF Rx Instructions: leave on most painful area for up to 12 hrs No Action gabapentin 600 mg tablet 600 mg PO TID Qty: 270 3RF Gvoke HypoPen 2-Pack 1 mg/0.2 mL auto-injector 1 mg subcut ONCE Qty: 0.4 0RF Rx Instructions: as a single dose; may repeat once after 15 minutes if no response ergocalciferol (vitamin D2) 1,250 mcg (50,000 unit) capsule 1,250 mcg PO WEEKLY multivitamin [Tab-A-Kelly] PO atorvastatin 10 mg tablet 10 mg PO HS Qty: 90 4RF alendronate 70 mg tablet 70 mg PO WEEKLY Qty: 13 3RF liraglutide [Victoza 3-Miky] 0.6 mg/0.1 mL (18 mg/3 mL) pen injector 1.8 mg subcut DAILY Qty: 27 4RF losartan 100 mg tablet 100 mg PO QAM Qty: 90 3RF (DME) pen needle, diabetic [BD Ultra-Fine Martha Pen Needle] 32 gauge x 5/32 needle See Rx Instructions .ROUTE .MEDSUPPLY Qty: 200 12RF Rx Instructions: 4 times a day insulin glargine [Basaglar KwikPen U-100 Insulin] 100 unit/mL (3 mL) insulin pen See Rx Instructions SUBCUT BID Qty: 60 4RF Rx Instructions: subcutaneously twice a day; 12 units in morning (depending on sugars) 16 units in evening (depending on sugars) (DME) FreeStyle Deyanira 3 Plus Sensor Device See Rx Instructions .Route Qty: 6 8RF Rx Instructions: every 2 weeks hydrochlorothiazide 25 mg tablet 25 mg PO QAM insulin lispro [Admelog U-100 Insulin lispro] 100 unit/mL solution 6 unit subcut .before meals MDD 24 Qty: 20 3RF Rx Instructions: 6 units before meals no meal no shot levothyroxine [Tirosint] 25 mcg capsule 25 mcg PO DAILY Qty: 90 2RF Follow-up/Referrals: Jose,MD Spike [Primary Care Provider] - Varghese Sheriff MD [Physician] - 1 Week (Pain management referral, chronic lumbago, moderate spondylosis on MRI) Time of Disposition: 13:24
[2024-12-06] MEDS: dexAMETHasone SOD PHOS INJ 10 MG/ML 1 ML VIAL IM (13:55)
[2024-12-06] MEDS: HYDROmorphone HCL INJ (*CRX) 1 MG/ML SYR 0.5 MG IM (13:55)
[2024-12-06 13:59] VITALS: BP 143/58; PULSE 75; RESP 18; O2SAT 99
--- OUTSIDE RECORDS SUMMARY | 2024-12-06 14:11 | XMS_ITS | CONTINUITY OF CARE DOCUMENT ---
Author Name jose garcia Address Unknown Organization [facility] Address [address] [facility] [address] [place] [address] Phone [phone] Care Team Providers Care [employer] Supervisor Name Role Phone Bianca LOWE, Berry Unavailable MAGDALENA GREENE MD Unavailable PROBLEMS Condition Status Date Provider Notes Vitamin D deficiency active Berry Baldwin B12 deficiency active Berry Valenzuela MD IRON DEFICIENCY active Berry Valenzuela MD Diastolic CHF active eBrry Valenzuela MD HOCM; active Berry Valenzuela MD Valvular heart disease active Berry Valenzuela MD Screening active Berry Valenzuela MD Osteoporosis active Berry Valenzuela MD Hypothyroidism active Berry Valenzuela MD HYPERTENSION active Berry Valenzuela MD Hyperlipidemia active Berry Valenzuela MD Diabetes mellitus, type 2 active Berry camarena MD Chest pain-type to be determined active Demetrius Valenzuela MD ENCOUNTERS Date Type Provider Location Encounter Diag nosis 08/09 - 08/09 In-person encounter Office Visit Berry Valenzuela MD [place] [facility] 06/29 - 06/29 In-person encounter Office Visit Berry Valenzuela MD [place] [facility] ScreeningOsteoporosisHypothyroidismHYPER TENSIONHyper lipidemiaDiabetes mellitus, type 2Chest pain-type to be determined VITAL SIGNS Date Observation Value Provider Body Mass Index (Ratio) 24.91 kg/m2 Malena Valenzuela MD blood pressure, cuff size regular Hitesh penn [place] blood pressure, diastolic 74 mm[Hg] Hitesh penn Bekcman blood pressure, systolic 143 mm[Hg] Jennifer sheets [place] oxygen saturation, oximetry 98 % [facility] pulse rate 84 /min [facility] weight E&M 136.2 [lb_av] [facility] height E&M 62 [in_i] [facility] [place] weight E&M 139 [lb_av] Anne Mcclellan Body Mass Index (Ratio) 25.42 kg/m2 Malena Valenzuela MD blood pressure, diastolic 84 mm[Hg] Li [facility] blood pressure, systolic 147 mm[Hg] Jesi [facility]Logic blood pressure, cuff size regular Darnell conte Burks blood pressure, diastolic 84 mm[Hg] Darnell conte Burks blood pressure, systolic 147 mm[Hg] Tab lucina Burks weight E&M 139 [lb_av] Vale Burks pulse rate 85 /min Vale Burks oxygen saturation, oximetry 99 % Vlae Burks respiratory rate E&M 16 /min Vale Burks height E&M 62 [in_i] Valelucina Burks ALLERGIES No Known Drug Allergies RESULTS Date Observation Value Provider Reference Range Interpretation Location 1 hemoglobin A1C, blood, as % of total hemoglobin 7.4 % OF TOTAL HGB [facility] <5.7 High 1 B-12, serum 498 pg/mL [facility] 200-1100 Normal 1 ferritin, serum 75 ng/mL [facility] 16-288 Normal 1 basophils as percent of blood leukocytes 1.0 % [facility] Normal 1 eosinophils as percent of blood leukocytes 1.2 % [facility] Normal 1 monocyte count, blood 9.7 % [facility] Normal 1 lymphocyte count, blood 37.3 % [facility] Normal 1 neutrophils as percent of blood leukocytes 50.8 % [facility] Normal 1 basophils, absolute, manual 74 cells/mcL [facility] 0-200 Normal 1 eosinophils, absolute, manual 89 cells/mcL [facility] 15-500 Normal 1 monocytes, absolute, manual 718 cells/mcL [facility] 200-950 Normal 1 lymphocytes, absolute 2760 CELLS/UL [facility] 850-3900 Normal 1 Absolute Neutrophil count 3759 cells/mcL [facility] 1861-2873 Normal 1 mean platelet volume 10.4 fL [facility] 7.5-12.5 Normal 1 platelet count 317 THOUSAND/ UL [facility] 140-400 Normal 1 red blood cell distribution width 12.7 % [facility] 11.0-15.0 Normal 1 mean corpuscular hemoglobin concentration, RBC 32.3 G/DL [facility] 32.0-36.0 Normal 1 mean corpuscular hemoglobin, RBC 29.3 pg [facility] 27.0-33.0 Normal 1 mean corpuscular volume, RBC 90.6 fL [facility] 80.0-100.0 Normal 1 hematocrit, blood 41.5 % [facility] 35.0-45.0 Normal 1 hemoglobin electrophoresis, blood 13.4 [facility] 11.7-15.5 Normal 1 erythrocyte (RBC) count 4.58 MILLION/U L [facility] 3.80-5.10 Normal 1 leukocyte (white blood cells) count, blood 7.4 THOUSAND/ UL [facility] 3.8-10.8 Normal 1 NT-pro BNP 204 [facility] <125 High 1 alanine aminotransferase (SGPT), serum 25 1/L [facility] 6-29 Normal 1 aspartate aminotransferase (SGOT), serum 23 1/L [facility] 10-35 Normal 1 alkaline phosphatase, serum 68 1/L [facility] 37-153 Normal 1 bilirubin, serum, total 0.4 mg/dL [facility] 0.2-1.2 Normal 1 albumin/globulin ratio, serum 1.8 (calc) [facility] 1.0-2.5 Normal 1 globulins, serum, total 2.3 G/DL (CALC) [facility] 1.9-3.7 Normal 1 albumin, serum 4.2 g/dL [facility] 3.6-5.1 Normal 1 protein, total, serum 6.5 g/dL [facility] 6.1-8.1 Normal 1 calcium, serum 9.2 mg/dL [facility] 8.6-10.4 Normal 1 carbon dioxide, venous blood 28 mmol/L [facility] 20-32 Normal 1 chloride, serum 103 mmol/L [facility] 98-110 Normal 1 potassium, serum 4.5 mmol/L [facility] 3.5-5.3 Normal 1 sodium, serum 136 mmol/L [facility] 135-146 Normal 1 urea nitrogen/creatinine ratio, serum SEE NOTE: (calc) [facility] 6-22 1 creatinine, serum 0.79 mg/dL [facility] 0.50-1.05 Normal 1 urea nitrogen, blood 14 mg/dL [facility] 7-25 Normal 1 blood glucose, random 157 mg/dL [facility] 65-99 High 1 iron saturation percent, serum 18 % (CALC) [facility] 16-45 Normal 1 iron binding capacity, total 283 MCG/DL (CALC) [facility] 250-450 Normal 1 iron, serum 51 ug/dL [facility] 45-160 Normal 1 microalbumin/creatin ine ratio, urine NOTE mg/g creat [facility] <30 Normal 1 microalbumin/total urine volume <0.2 mg/dL [facility] See Note: Normal 1 creatinine, random, urine 7 mg/dL [facility] 20-275 Low 1 cholesterol, non-HDL, total 78 MG/DL (CALC) [facility] <130 Normal 1 cholesterol/HDL ratio, serum, percent 2.8 (calc) [facility] <5.0 Normal 1 LDL cholesterol, serum 59 MG/DL (CALC) [facility] Normal 1 triglyceride, serum, fasting 103 mg/dL [facility] <150 Normal 1 HDL cholesterol, serum 44 mg/dL [facility] > OR = 50 Low 1 cholesterol, serum 122 mg/dL [facility] <200 Normal HISTORY OF MEDICATION USE Medication Status Instructions Dates Provider Indications Com ments cyanocobalamin (vitamin B-12) 1,000 mcg capsule active Take 1 capsule by mouth once a day Berry Valenzuela MD FeroSul 325 mg (65 mg iron) tablet active TAKE ONE TABLET BY MOUTH ONCE DAILY Berry Valenzuela MD Toprol XL 50 mg tablet extended release 24 hr active Take 1 tablet by mouth once daily Anita TERRYP aspirin 81 mg tablet,chewable active CHEW AND SWALLOW 1 TABLET BY MOUTH EVERY DAY Berry Valenzuela MD Jardiance 10 mg tablet active Take 1 tablet by mouth once a day Berry Valenzuela MD Admelog U-100 Insulin lispro 100 unit/mL solution active Berry Valenzuela MD Victoza 3-Miky 0.6 mg/0.1 mL (18 mg/3 mL) pen injector active Berry Valenzuela MD ergocalciferol (vitamin D2) 1,250 mcg (50,000 unit) capsule active TAKE 1 CAPSULE BY MOUTH EVERY WEEK Anita TERRYP meloxicam 7.5 mg tablet active Berry Valenzuela MD levothyroxine 25 mcg tablet active Vale Burks gabapentin 600 mg tablet active take one tablet by mouth three times daily Vale Burks FeroSul 325 mg (65 mg iron) tablet completed - Berry Valenzuela MD alendronate 70 mg tablet active TAKE 1 TABLET BY MOUTH ONCE A WEEK Vale Burks losartan 100 mg tablet active Take 1 tablet by mouth once a day [facility] hydrochlorothiazide 25 mg tablet completed - Berry Valenzuela MD atorvastatin 10 mg tablet active Take 1 tablet by mouth every evening Vale Burks SOCIAL HISTORY Date Observation Value Provider personal [facility] of [facility] use [facility] smoking status Never smoker [facility] Never smoker Berry Valenzuela MD appendectomy, history of Appendectomy, Hx of Berry Valenzuela MD INSURANCE PROVIDERS Payer name Policy type / Coverage type Hydro red republican [place] [employer] Medicaid [id number] ADVANCE DIRECTIVES Name Date DISCUSSED - NO DECISION MADE TREATMENT PLAN Date Name Performer :neg uacr and egfr and pet scan Berry Valenzuela MD :7.4 Berry Valenzuela MD Berry Valenzuela MD :neg uacr neg egfr Berry Valenzuela MD :pr0 204 Berry Valenzuela MD Cardiology: H er updated medication list for this problem includes: Losartan 100 Mg Tablet (Losartan) ..... Take 1 tablet by mouth once a day Aspirin 81 Mg Tablet,chewable (Aspirin) ..... Chew and swallow 1 tablet by mouth every day Jardiance 10 Mg Tablet (Empagliflozin) ..... Take 1 tablet by mouth once a day Admelog U-100 Insulin Lispro 100 Unit/ml Solution (Insulin lispro) Victoza 3-miky 0.6 Mg/0.1 Ml (18 Mg/3 Ml) Pen Injector (Liraglutide) [place] Mckayla [facility] Cardiology:continues to have episodes of chest pain and SOB M ay be r/t fatigue H ad treadmill stress test but poor quality as could not reach target HR d/t SOB and fatigue W ill plan for regadenosine stress test H er updated medication list for this problem includes: Toprol Xl 50 Mg Tablet Extended Release 24 Hr (Metoprolol succinate) ..... Take 1 tablet by mouth once daily Aspirin 81 Mg Tablet,chewable (Aspirin) ..... Chew and swallow 1 tablet by mouth every day [facility] Cardiology:will upda te lipid panel H er updated medication list for this problem includes: Atorvastatin 10 Mg Tablet (Atorvastatin) ..... Take 1 tablet by mouth every evening [facility] Cardiology:BP slight ly above goal W ill add low dose BB H er updated medication list for this problem includes: Toprol Xl 50 Mg Tablet Extended Release 24 Hr (Metoprolol succinate) ..... Take 1 tablet by mouth once daily Losartan 100 Mg Tablet (Losartan) ..... Take 1 tablet by mouth once a day Aspirin 81 Mg Tablet,chewable (Aspirin) ..... Chew and swallow 1 tablet by mouth every day [facility] Cardiology:Noted on recent echo W ill add BB to current regimen H ave referred to [facility] for possible Camzyos H er updated medication list for this problem includes: Toprol Xl 50 Mg Tablet Extended Release 24 Hr (Metoprolol succinate) ..... Take 1 tablet by mouth once daily Losartan 100 Mg Tablet (Losartan) ..... Take 1 tablet by mouth once a day Aspirin 81 Mg Tablet,chewable (Aspirin) ..... Chew and swallow 1 tablet by mouth every day [facility] :neg stress Berry Valenzuela MD :ef 75 12 mm hg grade Berry camarena MD :mild mr and tr with pap 27 Malena Valenzuela MD Cardiology Berry Valenzuela MD Cardiology Berry Valenzuela MD Cardiology Berry Valenzuela MD Cardiology Berry Valenzuela MD Cardiology Berry Valenzuela MD Cardiology:6.9 Berry Valenzuela MD Date Name Vitamin D, 25-Hydrox y VITAMIN B12 IRON AND TOTAL IRON BINDING CAPACITY FERRITIN CBC (INCLUDES DIFF/P LT) PROBNP, N TERMINAL LIPID PANEL Microalb/Creatinine Urine, Random HEMOGLOBIN A1c COMPREHENSIVE METABO LIC PANEL, W/EGFR Stress Regadenoson CT, Coronary Calcium Score Stress Routine Complete Echo CXR- PA/Lat HISTORY OF PROCEDURES Procedure Date Procedure Name Provider Procedure Notes S tatus EKG Berry Valenzuela MD complete d
--- OUTSIDE RECORDS SUMMARY | 2024-12-06 14:11 | XMS_ITS | Clinical Summary ---
Author Organization [facility] Address [address] [place] [id number] Care Team Providers Care Project Consultant Name Role Phone Estefanía Edwards MD Primary Care Provider Social History Tobacco Use Types Packs/Day Years Used Date Smoking Tobacco: Never Assessed Comments Unknown Sex and Gender Information Value Date Recorded Sex Assigned at Not on file Legal Sex Female 4:27 PM CDT Gender Identity Not on file Sexual Orientation Not on file Plan of Treatment Health Maintenance Due Date Last Done Comments Cervical Cancer Screening Pa p Smear (Age 30 to 64) Every 3 Years 1961 Colorectal Cancer Screening Colonoscopy (10 Years) 1961 Annual Physical 1964 Hepatitis C 1979 DTaP, Tdap and Td Vaccines ( 1 - Tdap) 1980 Cervical Cancer Screening Pa p with HPV Testing (Age 30 to 64) Every 5 Years 1991 Cervical Cancer Screening with HPV 1991 Mammogram Screening 2001 Zoster Vaccines (1 of 2) 2011 COVID-19 Vaccine (2023-2 5 season) 2024 Influenza Adult (#1) 2024 RSV Immunization or 60+ Years (1 - 1-dose 75+ series) 2036 Meningococcal B Vaccine Aged Out No l onger eligible based on patient's age to complete this topic Meningococcal Vaccine Aged Out No beronica lissa eligible based on patient's age to complete this topic Pneumococcal Vaccine: Pediat rics (0 to 5 Years) and At-Risk Patients (6 to 64 Years) Aged Out No longer eligible b ased on patient's age to complete this topic RSV Immunizations Under 20 Months Aged Out No longer eligible based on patient's age to complete this topic Insurance [employer] Care Teams Project Consultant Relationship Specialty Start Date End Date Estefanía Edwards MD [address] [place] [address] [place] [address] PCP - General 02/26/17
--- OUTSIDE RECORDS SUMMARY | 2024-12-06 14:12 | XMS_ITS | Data Portability ---
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 Automatic Name Role Phone SPIKE GARCIA Primary Care Provider SPIKE GARCIA Referring Provider [phone] Assessment Encounter Date Assessment Date Assessment LastModified by Organization Details LastModified Time 08/30/2023 08/30/2023 62 yo F with - B/L KNEE PAIN, chronic - CHRONIC BACK PAIN - DDD L-SPINE - PERIPHERAL NEUROPATHY - DM II - HTN - HLD - GERD - HYPOTHYROIDISM - GALL STONES - OSTEOPOROSIS - HYPOMAGNESEMIA - CONSTIPATION, Chronic - CHRONIC NECK & BACK PAIN; Probably FIBROMYALGIA - DDD SPINE - LT THUMB STIFFNESS, Chronic - CHRONIC HEADACHE - H/O ANEMIA - H/O HYPERKALEMIA - H/O ELEVATED LFTs - H/O VIT B12 DEFICIENCY HbA1c: 8.9(09/22/17) - 7.9(02/16/18) - 8.7(07/07/18) - 7.9(10/12/18) - 8.2(01/13/19) - 8.9(05/23/19) - 9.0(09/06/19) - 8.5(02/06/20) - 7.0(07/08/20) - 9.0(10/17/20) - 7.0(01/16/21) - 7.8(04/17/21) - 6.4(07/18/21) - 6.2(10/27/21) - 7.6(02/25/22) - 6.9(12/16/22) - 6.8(05/28/23) Annual labs: 11/16/23. CXR: 05/24/23. X-ray L-spine, Knees: 04/27/23. Other Annual labs: 07/31/21. Annual labs (by Endo): 07/18/21. CXR: 09/11/20. CT L-spine wo: 09/07/20. Annual labs: 07/08/20. Hepatitis panel: 10/26/19. Annual labs: 07/06/19. NM scan: 05/25/19. US abdomen: 05/23/19. US pelvis: 06/16/18. Annual labs: 06/09/18. MRI brain w/wo: 05/16/18. Annual labs: 06/13. X-ray C, T & L spine: 02/26/17. Wt: 135(04/08/23) - 136(06/09/23) D/w pt and her about her findings, recent labs & imagines and further plan of care. All questions answered for the pt. All meds verified with pt and her . Meds as directed. Increase Gabapentin as directed. BP & DM diary education given and advised to call us if any concerns. Diet and exercise explained in detail. F/u with Pain clinic as per schedule. F/u with PT as per schedule. Cont f/u with Spine as per schedule. Cont f/u with Hand surgeon as per schedule. Cont f/u with Endo as per schedule. Cont f/u with Glass Designer as per schedule. Cont f/u with Ophtho as per schedule. Offered to refer to Surg; but pt declined. Januvia, bydureon are not covered under pt's insurance. HM: WWE - 06/13/21, normal. Cont f/u with [employer]OR [employer] as per schedule. Mammo - 08/03/23, incomplete. Ordered. DEXA - 05/29/22, Osteopenia ++. H/o osteoporosis ++. Colonoscopy - 10/18, normal. Cont f/u with GI in 10 yrs as recommended. Flu - 06/09/23. Tdap, Shingrix - At HD/pharmacy. F/u in 3 months. A1c, CBC before next visit. Annual labs in 08/20. [email or web address] Not available 08/30/2023 09:45:29 12/01/2023 12/01/2023 63 yo F with - B/L KNEE PAIN, chronic - CHRONIC BACK PAIN - DDD L-SPINE - PERIPHERAL NEUROPATHY - DM II - HTN - HLD - GERD - HYPOTHYROIDISM - GALL STONES - OSTEOPOROSIS - HYPOMAGNESEMIA - CONSTIPATION, Chronic - CHRONIC NECK & BACK PAIN; Probably FIBROMYALGIA - DDD SPINE - LT THUMB STIFFNESS, Chronic - CHRONIC HEADACHE - H/O ANEMIA - H/O HYPERKALEMIA - H/O ELEVATED LFTs - H/O VIT B12 DEFICIENCY HbA1c: 8.9(09/22/17) - 7.9(02/16/18) - 8.7(07/07/18) - 7.9(10/12/18) - 8.2(01/13/19) - 8.9(05/23/19) - 9.0(09/06/19) - 8.5(02/06/20) - 7.0(07/08/20) - 9.0(10/17/20) - 7.0(01/16/21) - 7.8(04/17/21) - 6.4(07/18/21) - 6.2(10/27/21) - 7.6(02/25/22) - 6.9(12/16/22) - 6.8(05/28/23) - 7.2(11/29/23) Annual labs: 08/12/23. CXR: 05/24/23. X-ray L-spine, Knees: 04/27/23. Other Annual labs: 07/31/21. Annual labs (by Endo): 07/18/21. CXR: 09/11/20. CT L-spine wo: 09/07/20. Annual labs: 07/08/20. Hepatitis panel: 10/26/19. Annual labs: 07/06/19. NM scan: 05/25/19. US abdomen: 05/23/19. US pelvis: 06/16/18. Annual labs: 06/09/18. MRI brain w/wo: 05/16/18. Annual labs: 06/13. X-ray C, T & L spine: 02/26/17. Wt: 135(04/08/23) - 136(06/09/23) - 135(12/01/23) D/w pt and her about her findings, recent labs & imagines and further plan of care. All questions answered for the pt. All meds verified with pt and her . Meds as directed. Increase Gabapentin as directed. BP & DM diary education given and advised to call us if any concerns. Diet and exercise explained in detail. F/u with Pain clinic as per schedule. F/u with PT as per schedule. Cont f/u with Spine as per schedule. Cont f/u with Hand surgeon as per schedule. Cont f/u with Endo as per schedule. Cont f/u with Glass Designer as per schedule. Cont f/u with Ophtho as per schedule. Offered to refer to Surg; but pt declined. jeffry Castellano are not covered under pt's insurance. HM: WWE - 06/13/21, normal. Cont f/u with [employer] as per schedule. Mammo - 11/01/23, normal. DEXA - 05/29/22, Osteopenia ++. H/o osteoporosis ++. Colonoscopy - 10/18, normal. Cont f/u with GI in 10 yrs as recommended. Flu - 06/09/23. Tdap, Shingrix - At HD/pharmacy. F/u in 3 months. Annual labs in 08/20. [email or web address] Not available 12/01/2023 09:52:47 06/20/2024 06/20/2024 63 yo F with - CHEST PAIN, Intermittent - CHRONIC BACK PAIN - DDD L-SPINE - PERIPHERAL NEUROPATHY - DM II - HTN - HLD - GERD - HYPOTHYROIDISM - GALL STONES - OSTEOPOROSIS - HYPOMAGNESEMIA - CONSTIPATION, Chronic - CHRONIC NECK & BACK PAIN; Probably FIBROMYALGIA - DDD SPINE - B/L KNEE PAIN, chronic - LT THUMB STIFFNESS, Chronic - CHRONIC HEADACHE - H/O ANEMIA - H/O HYPERKALEMIA - H/O ELEVATED LFTs - H/O VIT B12 DEFICIENCY HbA1c: 8.9(09/22/17) - 7.9(02/16/18) - 8.7(07/07/18) - 7.9(10/12/18) - 8.2(01/13/19) - 8.9(05/23/19) - 9.0(09/06/19) - 8.5(02/06/20) - 7.0(07/08/20) - 9.0(10/17/20) - 7.0(01/16/21) - 7.8(04/17/21) - 6.4(07/18/21) - 6.2(10/27/21) - 7.6(02/25/22) - 6.9(12/16/22) - 6.8(05/28/23) - 7.2(11/29/23) Annual labs: 08/12/23. CXR: 05/24/23. X-ray L-spine, Knees: 04/27/23. Other Annual labs: 07/31/21. Annual labs (by Endo): 07/18/21. CXR: 09/11/20. CT L-spine wo: 09/07/20. Annual labs: 07/08/20. Hepatitis panel: 10/26/19. Annual labs: 07/06/19. NM scan: 05/25/19. US abdomen: 05/23/19. US pelvis: 06/16/18. Annual labs: 06/09/18. MRI brain w/wo: 05/16/18. Annual labs: 06/13. X-ray C, T & L spine: 02/26/17. Wt: 135(04/08/23) - 136(06/09/23) - 135(12/01/23) D/w pt and her about her findings, recent labs & imagines and further plan of care. Will refer pt to Cardio. Will do MRI L-spine wo. Will refer pt to Pain clinic again. All questions answered for the pt. All meds verified with pt and her . Meds as directed. Increase Gabapentin as directed. BP & DM diary education given and advised to call us if any concerns. Diet and exercise explained in detail. F/u with Cardio as per schedule. F/u with Pain clinic as per schedule. Cont f/u with Spine as per schedule. Cont f/u with Hand surgeon as per schedule. Cont f/u with Endo as per schedule. Cont f/u with Glass Designer as per schedule. Cont f/u with Ophtho as per schedule. Pt has done PT in the past. Offered to refer to Surg; but pt declined. Januvia, bymichaelreon are not covered under pt's insurance. HM: WWE - 06/13/21, normal. Cont f/u with [employer] as per schedule. Mammo - 11/01/23, normal. DEXA - 05/29/22, Osteopenia ++. H/o osteoporosis ++. Colonoscopy - 10/18, normal. Cont f/u with GI in 10 yrs as recommended. Flu - 06/20/24. Tdap, Shingrix - At HD/pharmacy. F/u in 2 months. Annual labs in 08/20. [email or web address] Not available 06/20/2024 09:59:51 08/15/2024 08/15/2024 63 yo F with - WELL ADULT VISIT - CHEST PAIN, Intermittent - LUMBAR SPONDYLOSIS - CHRONIC BACK PAIN - DDD L-SPINE - PERIPHERAL NEUROPATHY - DM II - HTN - HLD - GERD - HYPOTHYROIDISM - GALL STONES - OSTEOPOROSIS - HYPOMAGNESEMIA - CONSTIPATION, Chronic - CHRONIC NECK & BACK PAIN; Probably FIBROMYALGIA - DDD SPINE - B/L KNEE PAIN, chronic - LT THUMB STIFFNESS, Chronic - CHRONIC HEADACHE - H/O ANEMIA - H/O HYPERKALEMIA - H/O ELEVATED LFTs - H/O VIT B12 DEFICIENCY HbA1c: 8.9(09/22/17) - 7.9(02/16/18) - 8.7(07/07/18) - 7.9(10/12/18) - 8.2(01/13/19) - 8.9(05/23/19) - 9.0(09/06/19) - 8.5(02/06/20) - 7.0(07/08/20) - 9.0(10/17/20) - 7.0(01/16/21) - 7.8(04/17/21) - 6.4(07/18/21) - 6.2(10/27/21) - 7.6(02/25/22) - 6.9(12/16/22) - 6.8(05/28/23) - 7.2(11/29/23) MRI L-spine wo: 08/09/24. 2-D echo: 07/19/24. CXR: 06/29/24. US thyroid: 02/24/24. Annual labs: 08/12/23. CXR: 05/24/23. X-ray L-spine, Knees: 04/27/23. Other Annual labs: 07/31/21. Annual labs (by Endo): 07/18/21. CXR: 09/11/20. CT L-spine wo: 09/07/20. Annual labs: 07/08/20. Hepatitis panel: 10/26/19. Annual labs: 07/06/19. NM scan: 05/25/19. US abdomen: 05/23/19. US pelvis: 06/16/18. Annual labs: 06/09/18. MRI brain w/wo: 05/16/18. Annual labs: 06/13. X-ray C, T & L spine: 02/26/17. Wt: 135(04/08/23) - 136(06/09/23) - 135(12/01/23) [Pt stopped] D/w pt and her about her findings, recent labs & imagines and further plan of care. Will do routine labs. Advised pt to f/u with Pain clinic. Pt has their info. Pt declined to see a Spine surgeon at this time. All questions answered for the pt. All meds verified with pt and her . Meds as directed. BP & DM diary education given and advised to call us if any concerns. Diet and exercise explained in detail. F/u with Pain clinic as per schedule. Cont f/u with Cardio as per schedule. Cont f/u with Spine as per schedule. Cont f/u with Hand surgeon as per schedule. Cont f/u with Endo as per schedule. Cont f/u with Glass Designer as per schedule. Cont f/u with Ophtho as per schedule. Pt has done PT in the past. Offered to refer to Surg; but pt declined. jeffry Castellano are not covered under pt's insurance. HM: WWE - 06/13/21, normal. Cont f/u with DIRECT[facility] [employer] as per schedule. Mammo - 11/01/23, normal. DEXA - 03/09/24, Osteopenia ++. H/o osteoporosis ++. Colonoscopy - 10/18, normal. Cont f/u with GI in 10 yrs as recommended. Flu - 06/20/24. Tdap, Shingrix - At HD/pharmacy. F/u in 2-3 weeks. Annual labs in 08/21. [email or web address] Not available 08/15/2024 11:57:59 08/23/2024 08/23/2024 63 yo F with - LUMBAR SPONDYLOSIS - CHRONIC BACK PAIN - DDD L-SPINE - PERIPHERAL NEUROPATHY - DM II - HTN - HLD - GERD - HYPOTHYROIDISM - CHEST PAIN, Intermittent - GALL STONES - OSTEOPOROSIS - HYPOMAGNESEMIA - CONSTIPATION, Chronic - CHRONIC NECK & BACK PAIN; Probably FIBROMYALGIA - DDD SPINE - B/L KNEE PAIN, chronic - LT THUMB STIFFNESS, Chronic - CHRONIC HEADACHE - H/O ANEMIA - H/O HYPERKALEMIA - H/O ELEVATED LFTs - H/O VIT B12 DEFICIENCY HbA1c: 8.9(09/22/17) - 7.9(02/16/18) - 8.7(07/07/18) - 7.9(10/12/18) - 8.2(01/13/19) - 8.9(05/23/19) - 9.0(09/06/19) - 8.5(02/06/20) - 7.0(07/08/20) - 9.0(10/17/20) - 7.0(01/16/21) - 7.8(04/17/21) - 6.4(07/18/21) - 6.2(10/27/21) - 7.6(02/25/22) - 6.9(12/16/22) - 6.8(05/28/23) - 7.2(11/29/23) -7.1(08/16/24) Annual labs: 08/16/24. MRI L-spine wo: 08/09/24. 2-D echo: 07/19/24. CXR: 06/29/24. US thyroid: 02/24/24. Annual labs: 08/12/23. CXR: 05/24/23. X-ray L-spine, Knees: 04/27/23. Other Annual labs: 07/31/21. Annual labs (by Endo): 07/18/21. CXR: 09/11/20. CT L-spine wo: 09/07/20. Annual labs: 07/08/20. Hepatitis panel: 10/26/19. Annual labs: 07/06/19. NM scan: 05/25/19. US abdomen: 05/23/19. US pelvis: 06/16/18. Annual labs: 06/09/18. MRI brain w/wo: 05/16/18. Annual labs: 06/13. X-ray C, T & L spine: 02/26/17. Wt: 135(04/08/23) - 136(06/09/23) - 135(12/01/23) [Pt stopped] D/w pt and her about her findings, recent labs & imagines and further plan of care. Advised pt to f/u with Pain clinic. Pt has their info. Pt declined to see a Spine surgeon at this time. All questions answered for the pt. All meds verified with pt and her . Meds as directed. BP & DM diary education given and advised to call us if any concerns. Diet and exercise explained in detail. F/u with Pain clinic as per schedule. Cont f/u with Cardio as per schedule. Cont f/u with Spine as per schedule. Cont f/u with Hand surgeon as per schedule. Cont f/u with Endo as per schedule. Cont f/u with Glass Designer as per schedule. Cont f/u with Ophtho as per schedule. Pt has done PT in the past. Offered to refer to Surg; but pt declined. Januvia, bydureon are not covered under pt's insurance. HM: WWE - 06/13/21, normal. Cont f/u with [employer] [employer] as per schedule. Mammo - 11/01/23, normal. DEXA - 03/09/24, Osteopenia ++. H/o osteoporosis ++. Colonoscopy - 10/18, normal. Cont f/u with GI in 10 yrs as recommended. Flu - 06/20/24. Tdap, Shingrix - At HD/pharmacy. F/u in 3-4 months. Annual labs in 08/21. [email or web address] Not available 08/23/2024 10:33:14 Plan of Treatment Reminders Order Date Submit Date Provider Last Modified By Organization Details Last Modified Time Details Appointments None recorded. Lab vitamin B12 + folate, serum or blood 2023 [facility], [address], [place], [address], 4 07:08:39 CBC w/ auto diff 2023 [facility], [address], [place], [address], 4 07:08:37 CMP, serum or plasma 2023 [facility], [address], [place], [address], 4 07:08:34 lipid panel, serum 2023 [facility], [address], [place], [address], 4 07:08:31 TSH, serum, reflex free T4 2023 024 [email or web address] [facility], [address], [place], [address], 4 15:04:07 urinalysis complete, reflex culture 2023 [facility], [address], [place], [address], 4 07:08:35 HbA1c (hemoglobin A1c), blood 2023 [facility], [address], [place], [address], 4 07:08:41 microalbumi n/creatinin e, mass ratio, urine 2023 [facility], [address], [place], [address], 4 07:08:32 magnesium, serum or plasma 2023 [facility], [address], [place], [address], 4 07:08:33 vitamin D, 25-hydroxy, total, serum 2023 024 [facility], [address], [place], [address], 4 07:08:40 CBC w/ auto diff 2022 023 [email or web address] [facility], [address] [facility], [place], [address], 4 08:55:39 HbA1c (hemoglobin A1c), blood 2022 023 [email or web address] [facility], [address] [facility], [place], [address], 4 08:55:39 Referral pain management referral - Please call patient to schedule an appointment . Thank you. 2023 024 [email or web address] Becka Baca MD, [address] [facility] [address], [place], [address], 4 08:49:43 cardiologis t referral - Please call patient to schedule an appointment with Dr. Mark Johnson. Thank you. 2023 024 [email or web address] [facility] Referral Fax Line, [address] [facility], [facility] [address], [place], [address], 4 08:49:16 physical therapist referral 2023 [email or web address] [place] [address], [address] [place] [address] Rd, [address], [address], 4 09:40:14 Procedures None recorded. Surgeries None recorded. Imaging MRI, lumbar spine, w/o contrast - *Please call pt to schedule* 2023 024 [facility] (Imaging), [address], [place], [address], 17:45:24 Medication Orders baclofen 10 mg tablet 2023 [facility], [address] [place] [address], [address], 4 10:31:09 meloxicam 7.5 mg tablet 2023 [facility], [address] [place] [address], [address], 4 10:31:11 alendronate [address] [facility], [address] [place] [address], [address], 4 10:31:12 hydrochloro thiazide 25 mg tablet 2023 [facility], [address] [place] [address], [address], 4 10:31:13 losartan [address] [facility] [address], [address] [place] [address], [address], 4 10:31:12 Tab-A-Kelly 400 mcg tablet 2023 [facility], [address] [place] [address], [address], 4 10:31:11 ferrous sulfate 325 mg (65 mg iron) tablet 2023 [facility] [address], [address] [place] [address], [address], 4 10:31:13 atorvastati n [address] [facility] [address], [address] [place] [address], [address], 4 10:31:14 gabapentin 600 mg tablet 2023 [facility], [address] [place], [address], 4 10:31:11 baclofen 10 mg tablet 2023 [facility], [facility] [place], [address], 4 09:45:50 meloxicam 7.5 mg tablet 2023 [facility], [address] [place] [address], [address], 4 09:45:49 alendronate 70 mg tablet 2023 [facility], [address] [place] [address], [address], 4 09:45:49 hydrochloro thiazide 25 mg tablet 2023 [facility], [facility] [place], [address], 4 09:45:51 losartan 100 mg tablet 2023 [facility], [address] [place] [address], [address], 4 09:45:49 atorvastati n 10 mg tablet 2023 [facility], [address] [place] [address], [address], 4 09:45:50 Tab-A-Kelly 400 mcg tablet 2023 [facility], [address] [place] [address], [address], 4 09:45:51 ferrous sulfate 325 mg (65 mg iron) tablet 2023 024 [facility], [address] [place], [address], 4 09:45:46 Alcohol Prep Pads 2023 024 [facility], [address] [place], [address], 4 09:45:48 gabapentin 600 mg tablet 2023 [facility], [facility] [place], [address], 4 09:45:52 baclofen 10 mg tablet 2023 024 [facility], [address] [place], [address], 4 09:20:39 meloxicam 7.5 mg tablet 2023 024 [facility], [facility] [place], [address], 4 09:20:38 alendronate 70 mg tablet 2023 024 [facility], [address] [place], [address], 4 09:20:38 hydrochloro thiazide 25 mg tablet 2023 024 [facility], [address] [place], [address], 4 09:20:41 losartan 100 mg tablet 2023 024 [facility], [address] [place], [address], 4 09:20:39 atorvastati n 10 mg tablet 2023 024 [facility], [address] [place] [address], [address], 4 09:20:40 Tab-A-Kelly 400 mcg tablet 2023 024 [facility], [address] [place] [address], [address], 4 09:20:35 ferrous sulfate 325 mg (65 mg iron) tablet 2023 024 [facility], [address] [place] [address], [address], 4 09:20:35 Alcohol Prep Pads 2023 024 [facility], [address] [place] [address], [address], 4 09:20:34 gabapentin 600 mg tablet 2023 024 [facility], [address] [place] [address], [address], 4 09:20:37 baclofen 10 mg tablet 2023 024 [facility], [address] [place] [address], [address], 4 09:35:26 meloxicam 7.5 mg tablet 2023 024 [facility], [address] [place] [address], [address], 4 09:35:25 alendronate 70 mg tablet 2023 024 [facility], [address] [place] [address], [address], 4 09:35:21 hydrochloro thiazide 25 mg tablet 2023 024 [facility], [address] [place] [address], [address], 4 09:35:36 losartan 100 mg tablet 2023 024 [facility], [address] [place] [address], [address], 4 09:35:32 atorvastati n 10 mg tablet 2023 024 [facility], [address] [place] [address], [address], 4 09:35:20 Tab-A-Kelly 400 mcg tablet 2023 024 [facility], [address] [place] [address], [address], 4 09:35:25 ferrous sulfate 325 mg (65 mg iron) tablet 2023 024 [facility], [address] [place] [address], [address], 4 09:35:35 Basaglar KwikPen U-100 Insulin 100 unit/mL (3 mL) subcutaneou s 2023 024 [facility], [address] [place] [address], [address], 4 09:35:28 Admelog U-100 Insulin lispro 100 unit/mL subcutaneou s solution 2023 024 [facility], [address] [place] [address], [address], 4 09:35:35 Victoza 3-Miky 0.6 mg/0.1 mL (18 mg/3 mL) subcutaneou s pen injector 2023 024 [facility], [address] [place] [address], [address], 4 09:35:35 Alcohol Prep Pads 2023 024 [facility], [address] [place], [address], 4 09:35:34 levothyroxi ne 25 mcg tablet 2023 024 [facility], [address] [place], [address], 4 09:35:19 gabapentin 600 mg tablet 2023 024 [facility], [address] [place], [address], 4 09:35:21 baclofen 10 mg tablet 2022 023 [facility], [address] [place] [address], [address], 3 09:37:39 meloxicam 7.5 mg tablet 2022 023 [facility], [address] [place], [address], 3 09:37:36 alendronate 70 mg tablet 2022 023 [facility], [address] [place], [address], 3 09:37:44 hydrochloro thiazide 25 mg tablet 2022 023 [facility], [address] [place], [address], 3 09:37:44 losartan 100 mg tablet 2022 023 [facility], [address] [place], [address], 3 09:37:37 atorvastati n 10 mg tablet 2022 023 [facility], [address] [place], [address], 3 09:57:18 Tab-A-Kelly 400 mcg tablet 2022 023 [facility], [address] [place], [address], 3 09:37:39 ferrous sulfate 325 mg (65 mg iron) tablet 2022 023 [facility], [address] [place] [address], [address], 3 09:37:45 Basaglar KwikPen U-100 Insulin 100 unit/mL (3 mL) subcutaneou s 2022 023 [facility], [address] [place] [address], [address], 3 09:37:32 Admelog U-100 Insulin lispro 100 unit/mL subcutaneou s solution 2022 023 [facility], [address] [place] [address], [address], 3 09:57:20 Victoza 3-Miky 0.6 mg/0.1 mL (18 mg/3 mL) subcutaneou s pen injector 2022 023 [facility], [address] [place] [address], [address], 3 09:37:37 Alcohol Prep Pads 2022 023 [facility], [address] [place] [address], [id number], 3 09:37:42 levothyroxi ne 25 mcg tablet 2022 023 [facility], [address] [place] [address], [id number], 09:37:38 gabapentin 600 mg tablet 2022 023 [facility], [address] [place], [address], 3 09:57:13 Patient TargetsNo targets recorded. Patient InstructionsNo instructions recorded. Reason for Referral Physical Therapist Referral for Chronic low back pain Referring Physician: Spike Garcia [facility], Encounter Date: 12/01/2023 [employer] Coordinator Referral for Ch ronic chest pain Please call patient to schedule an appointment with Dr. Mark Johnson. Thank you. Referring Physician: Spike Garcia [facility], Encounter Date: 06/20/2024 Pain Management Referral for Chronic low back pain Chronic low back pain Please call patient to schedule an appointment. Thank you. [facility]: [facility] Results Created Date Observation Date Name Description Value Unit Range Abnormal Flag Note LastModifiedBy Organization Detail LastModifiedTime 08/12/2008/12/2023 TEST NOT PERFO RMED test not performed SEE COMMEN T cbc, ha1c not perfo rmed. no edta recei jonnie in lab pleae traci c t purpl e edta Not Available [facility] (Lab) [address] [place], [address], 08/12/2023 14:07:11 08/12/2008/12/2023 URINA LYSIS COMPL ETE/I RIS W/RFX color LIGHT- YELLOW Not Available [facility] (Lab) [address] [place], [address], 08/12/2023 14:19:58 08/12/20 23 08/12/2023 URINA LYSIS COMPL ETE/I RIS W/RFX appear CLEAR Not Available [facility] (Lab) [address] [place], [address], 08/12/2023 14:19:58 08/12/20 23 08/12/2023 URINA LYSIS COMPL ETE/I RIS W/RFX specific gravity 1.008 1.001- 1.030 Not Available [facility] (Lab) [address] [place], [address], 08/12/2023 14:19:58 08/12/20 23 08/12/2023 URINA LYSIS COMPL ETE/I RIS W/RFX pH 6.5 pH_un its 5.0-9. 0 Not Available [facility] (Lab) [address] [place], [address], 08/12/2023 14:19:58 08/12/20 23 08/12/2023 URINA LYSIS COMPL ETE/I RIS W/RFX leukocytes 250 shamika/u L negati ve- abnormal Not Available [facility] (Lab) [address] [place], [address], 08/12/2023 14:19:58 08/12/20 23 08/12/2023 URINA LYSIS COMPL ETE/I RIS W/RFX nitrite NEGATI VE negati ve- Not Available [facility] (Lab) [address] [place], [address], 08/12/2023 14:19:58 08/12/20 23 08/12/2023 URINA LYSIS COMPL ETE/I RIS W/RFX protein NEGATI VE mg/dL negati ve- Not Available [facility] (Lab) [address] [place], [address], 08/12/2023 14:19:58 08/12/20 23 08/12/2023 URINA LYSIS COMPL ETE/I RIS W/RFX glucose NORMAL mg/dL normal - Not Available [facility] (Lab) [address] [place], [address], 08/12/2023 14:19:58 11/08/12/2023 URINA LYSIS COMPL ETE/I RIS W/RFX ketones NEGATI VE mg/dL negati ve- Not Available [facility] (Lab) [address] [place], [address], 08/12/2023 14:19:58 08/12/20 23 08/12/2023 URINA LYSIS COMPL ETE/I RIS W/RFX urobilinogen NORMAL mg/dL normal - Not Available [facility] (Lab) [address] [place], [address], 08/12/2023 14:19:58 08/12/20 23 08/12/2023 URINA LYSIS COMPL ETE/I RIS W/RFX bilirubin NEGATI VE mg/dL negati ve- Not Available [facility] (Lab) [address] [place], [address], 08/12/2023 14:19:58 08/12/20 23 08/12/2023 URINA LYSIS COMPL ETE/I RIS W/RFX blood NEGATI VE mg/dL negati ve- Not Available [facility] (Lab) [address] [place], [address], 08/12/2023 14:19:58 08/12/20 23 08/12/2023 URINA LYSIS COMPL ETE/I RIS W/RFX white blood cells 0-8 /i??h pfi?? 0-8 Not Available [facility] (Lab) [address] [place], [address], 08/12/2023 14:19:58 08/12/20 23 08/12/2023 URINA LYSIS COMPL ETE/I RIS W/RFX red blood cells 0-4 /i??h pfi?? 0-4 Not Available [facility] (Lab) [address] [place], [address], 08/12/2023 14:19:58 08/12/20 23 08/12/2023 URINA LYSIS COMPL ETE/I RIS W/RFX bacteria NONE Not Available [facility] (Lab) [address] [place], [address], 08/12/2023 14:19:58 08/12/20 23 08/12/2023 URINA LYSIS COMPL ETE/I RIS W/RFX mucous OCCASI ONAL /i??l pfi?? abnormal Not Available [facility] (Lab) [address] [place], [address], 08/12/2023 14:19:58 08/12/20 23 08/12/2023 URINA LYSIS COMPL ETE/I RIS W/RFX squamous epithelial FEW /i??l pfi?? abnormal Not Available [facility] (Lab) [address] [place], [address], 08/12/2023 14:19:58 08/12/20 23 08/12/2023 COMPR EHENS ADRIAN METAB OLIC PANEL sodium 139 mmol/ L 137-14 5 Not Available [facility] (Lab) [address] [place], [address], 08/12/2023 14:30:11 08/12/20 23 08/12/2023 COMPR EHENS ADRIAN METAB OLIC PANEL potassium 4.1 mmol/ L 3.5-5. 1 Not Available [facility] (Lab) [address] [place], [address], 08/12/2023 14:30:11 08/12/20 23 08/12/2023 COMPR EHENS ADRIAN METAB OLIC PANEL chloride 103 mmol/ L 98-107 Not Available [facility] (Lab) [address] [place], [address], 08/12/2023 14:30:11 08/12/20 23 08/12/2023 COMPR EHENS ADRIAN METAB OLIC PANEL carbon dioxide 27 mmol/ L 22-30 Not Available [facility] (Lab) [address] [place], [address], 08/12/2023 14:30:11 08/12/20 23 08/12/2023 COMPR EHENS ADRIAN METAB OLIC PANEL anion gap 13.1 mmol/ L 14-22 low Not Available [facility] (Lab) [address] [place], [address], 08/12/2023 14:30:11 08/12/20 23 08/12/2023 COMPR EHENS ADRIAN METAB OLIC PANEL glucose 144 mg/dL 70-99 high Not Available [facility] (Lab) [address] [place], [address], 08/12/2023 14:30:11 08/12/20 23 08/12/2023 COMPR EHENS ADRIAN METAB OLIC PANEL BUN 15 mg/dL 8-19 Not Available [facility] (Lab) [address] [place], [address], 08/12/2023 14:30:11 08/12/20 23 08/12/2023 COMPR EHENS ADRIAN METAB OLIC PANEL creatinine 0.73 mg/dL 0.66-1 .25 Not Available [facility] (Lab) [address] [place], [address], 08/12/2023 14:30:11 08/12/20 23 08/12/2023 COMPR EHENS ADRIAN METAB OLIC PANEL GFR >60 Refer ence Range : [place] ge GFR Healt hy Adult : >60 mL/mi n/1.7 3 m2 Chron ic Kidne y Disea se: 15-60 mL/mi n/1.7 3 m2 Kidne y Failu re: <15/m L/min /1.73 m2 www.n iddk. nih.g ov The MDRD study equat ion has not been valid ated in child joseph <18 years of age; pregn ant women ; the elder ly >85 years of age; or in some racia l or ethni c subgr oups, such as Hispa nics. Outsi de the valid ated cezar eters , estim ated GFR is less accur ate, requi ring clini edelmira judgm ent on a case- by-ca se basis . Clini edelmira inter preta tion for other races and ages must be made by the clini marcos. The MDRD study equat ion has not been valid ated for the evalu ation of serum creat inine relat ed to nutri sheryl l statu s or medic ation usage . For perso ns <18 years of age, a pedia tric GFR calcu lator is avail able on the [facility] websi te: https ://ww w.kid lisha.o rg/pr ofess ional s/kdo qi/gf r_cal culat or Not Available [facility] (Lab) [address] [place], [address], 08/12/2023 14:30:11 08/12/20 23 08/12/2023 COMPR EHENS ADRIAN METAB OLIC PANEL alkaline phosphatase 84 U/L 38-126 Not Available [facility] (Lab) [address] [place], [address], 08/12/2023 14:30:11 08/12/20 23 08/12/2023 COMPR EHENS ADRIAN METAB OLIC PANEL alanine aminotransfe rase 31 U/L 0-35 Not Available [facility] (Lab) [address] [place], [address], 08/12/2023 14:30:11 08/12/20 23 08/12/2023 COMPR EHENS ADRIAN METAB OLIC PANEL aspartate aminotransfe rase 29 U/L 15-37 Not Available [facility] (Lab) [address] [place], [address], 08/12/2023 14:30:11 08/12/20 23 08/12/2023 COMPR EHENS ADRIAN METAB OLIC PANEL bilirubin, total 0.70 mg/dL 0.20-1 .30 Not Available [facility] (Lab) [address] [place], [address], 08/12/2023 14:30:11 08/12/20 23 08/12/2023 COMPR EHENS ADRIAN METAB OLIC PANEL calcium 9.7 mg/dL 8.4-10 .2 Not Available [facility] (Lab) [address] [place], [address], 08/12/2023 14:30:11 08/12/20 23 08/12/2023 COMPR EHENS ADRIAN METAB OLIC PANEL total protein 7.8 g/dL 6.3-8. 2 Not Available [facility] (Lab) [address] [place], [address], 08/12/2023 14:30:11 08/12/20 23 08/12/2023 COMPR EHENS ADRIAN METAB OLIC PANEL albumin 4.6 g/dL 3.4-5. 0 Not Available [facility] (Lab) [address] [place], [address], 08/12/2023 14:30:11 08/12/20 23 08/12/2023 COMPR EHENS ADRIAN METAB OLIC PANEL globulin 3.2 g/dL 2.6-4. 2 Not Available [facility] (Lab) [address] [place], [address], 08/12/2023 14:30:11 08/12/20 23 08/12/2023 COMPR EHENS ADRIAN METAB OLIC PANEL A/G ratio 1.4 ratio 1.0-2. 0 Not Available [facility] (Lab) [address] [place], [address], 08/12/2023 14:30:11 08/12/20 23 08/12/2023 VITAM IN D 25-HY DROXY vd25oh 74.9 NG/mL 30-100 Vitam in D Statu s: Defic ient: <20 ng/mL Insuf ficie nt: 20-29 ng/mL Suffi cient : 30-10 0 ng/mL Not Available [facility] (Lab) [address] [place], [address], 08/12/2023 15:11:31 08/12/20 23 08/12/2023 TSH W/REF RUBI FT4 TSH with reflex free T4 2.510 uIU/m L 0.465- 4.680 Not Available [facility] (Lab) [address] [place], [address], 08/12/2023 15:14:25 08/12/20 23 08/12/2023 VITAM IN B12 (JORGE ANDREEA ) vb12 668 pg/mL 239-93 1 Not Available [facility] (Lab) [address] [place], [address], 08/12/2023 15:28:07 08/12/20 23 08/12/2023 FOLAT E, SERUM /PLAS MA folate >20.0 NG/mL 2.76-2 0.0 Not Available [facility] (Lab) [address] [place], [address], 08/12/2023 15:28:18 08/12/20 23 08/12/2023 LIPID PANEL cholesterol 168 mg/dL 140-19 9 NIH KEON NSUS RECOM MENDA TION FOR ROOPA STERO L: ADULT CHILD LOW RISK: <200 <170 BORDE RLINE : <200- 239 ----- HIGH RISK: >240 >200 Not Available [facility] (Lab) [address] [place], [address], 08/12/2023 18:48:42 08/12/20 23 08/12/2023 LIPID PANEL triglyceride s 162 mg/dL 0-150 high NIH KEON NSUS REPOR T RECOM MENDA TION FOR TRIGL YCERI NICHO: ADULT CHILD LOW RISK: <150 ----- BODER LINE: 150-1 99 ----- HIGH RISK: >200 ----- Not Available [facility] (Lab) [address] [place], [address], 08/12/2023 18:48:42 08/12/20 23 08/12/2023 LIPID PANEL HDL cholesterol 53 mg/dL 40- Not Available [facility] (Lab) [address] [place], [address], 08/12/2023 18:48:42 08/12/20 23 08/12/2023 LIPID PANEL LDL cholesterol, calculated 83 mg/dL 0-130 NIH KEON NSUS REPOR T RECOM MENDA TIONS FOR LDL: ADULT CHILD LOW RISK <130 <110 (OPTI MAL LDL) <100 ----- BORDE RLINE : 130-1 59 ----- HIGH RISK: >160 >130 A TRIGL YCERI DE RESUL T >400 INVAL IDATE S THE CALCU LATIO N FOR LDL FRACT IONAT ION - THE LDL RESUL T WILL NOT BE REPOR MATHEW. Not Available [facility] (Lab) [address] [place], [address], 08/12/2023 18:48:42 08/12/20 23 08/12/2023 MAGNE SIUM magnesium 1.9 mg/dL 1.6-2. 3 Not Available [facility] (Lab) [address] [place], [address], 08/12/2023 18:48:52 11/29/19 24 11/30/2023 CBC (INCL UDES DIFF/ PLT) white blood cell count 6.7 thous and/u L 3.8-10 .8 normal Not Available [employer] [address] [address] [place], [address], 11/30/2023 01:03:25 11/29/19 24 11/30/2023 CBC (INCL UDES DIFF/ PLT) red blood cell count 4.42 shiloh on/uL 3.80-5 .10 normal Not Available [facility] [address] [place], [address], 11/30/2023 01:03:25 11/29/19 24 11/30/2023 CBC (INCL UDES DIFF/ PLT) hemoglobin 12.9 g/dL 11.7-1 5.5 normal Not Available [address], [address], 11/30/2023 01:03:25 11/29/19 24 11/30/2023 CBC (INCL UDES DIFF/ PLT) hematocrit 38.6 % 35.0-4 5.0 normal Not Available [address], [address], 11/30/2023 01:03:25 11/29/19 24 11/30/2023 CBC (INCL UDES DIFF/ PLT) MCV 87.3 fL 80.0-1 00.0 normal Not Available [address], [address], 11/30/2023 01:03:25 11/29/19 24 11/30/2023 CBC (INCL UDES DIFF/ PLT) MCH 29.2 pg 27.0-3 3.0 normal Not Available [address], [address], 11/30/2023 01:03:25 11/29/19 24 11/30/2023 CBC (INCL UDES DIFF/ PLT) MCHC 33.4 g/dL 32.0-3 6.0 normal Not Available [address], [address], 11/30/2023 01:03:25 11/29/19 24 11/30/2023 CBC (INCL UDES DIFF/ PLT) RDW 12.9 % 11.0-1 5.0 normal Not Available [address], [address], 11/30/2023 01:03:25 11/29/19 24 11/30/2023 CBC (INCL UDES DIFF/ PLT) platelet count 322 thous and/u L 140-40 0 normal Not Available [address] [place], [address], 11/30/2023 01:03:25 11/29/19 24 11/30/2023 CBC (INCL UDES DIFF/ PLT) MPV 10.4 fL 7.5-12 .5 normal Not Available [address], [address], 11/30/2023 01:03:25 11/29/19 24 11/30/2023 CBC (INCL UDES DIFF/ PLT) absolute neutrophils 3283 cells /uL 1500-7 800 normal Not Available [address], [address], 11/30/2023 01:03:25 11/29/19 24 11/30/2023 CBC (INCL UDES DIFF/ PLT) absolute lymphocytes 2600 cells /uL 850-39 00 normal Not Available [address], [address], 11/30/2023 01:03:25 11/29/19 24 11/30/2023 CBC (INCL UDES DIFF/ PLT) absolute monocytes 704 cells /uL 200-95 0 normal Not Available [address], [address], 11/30/2023 01:03:25 11/29/19 24 11/30/2023 CBC (INCL UDES DIFF/ PLT) absolute eosinophils 67 cells /uL 15-500 normal Not Available [facility] [address], [address], 11/30/2023 01:03:25 11/29/19 24 11/30/2023 CBC (INCL UDES DIFF/ PLT) absolute basophils 47 cells /uL 0-200 normal Not Available [facility] [address], [address], 11/30/2023 01:03:25 11/29/19 24 11/30/2023 CBC (INCL UDES DIFF/ PLT) neutrophils 49 % normal Not Available [address], [address], 11/30/2023 01:03:25 11/29/19 24 11/30/2023 CBC (INCL UDES DIFF/ PLT) lymphocytes 38.8 % normal Not Available [facility] [address], [address], 11/30/2023 01:03:25 11/29/19 24 11/30/2023 CBC (INCL UDES DIFF/ PLT) monocytes 10.5 % normal Not Available [facility] [address], [address], 11/30/2023 01:03:25 11/29/19 24 11/30/2023 CBC (INCL UDES DIFF/ PLT) eosinophils 1.0 % normal Not Available [facility] [address], [address], 11/30/2023 01:03:25 11/29/19 24 11/30/2023 CBC (INCL UDES DIFF/ PLT) basophils 0.7 % normal Not Available [facility] [address], [address], 11/30/2023 01:03:25 11/29/1911/30/2023 HEMOG LOBIN A1C hemoglobin A1C 7.2 %_of_ total _HGB <5.7 high For someo ne witho ut known diabe portillo, a hemog lobin A1c value of 6.5% or great er indic ates that they may have diabe portillo and this shoul d be confi rmed with a follo w-up test. For someo ne with known diabe portillo, a value <7% indic ates that their diabe portillo is well contr olled and a value great er than or equal to 7% indic ates subop timal contr ol. A1c targe ts shoul d be indiv idual ized based on durat ion of diabe portillo, age, comor bid condi tions , and other consi derat ions. Curre ntly, no conse nsus exist s miguelina clayton use of hemog lobin A1c for diagn osis of diabe portillo for child joseph. This test was perfo rmed on the [facility] c8000 platf orm. Pleruss e be advis ed that [facility] will move hemog lobin A1c testi ng to the [facility] platf orm soon. In gener al, direc t alina rison of the resul ts from diffe rent platf orms is not recom jaxon d. Not Available [facility] [address] [address] [place], [address], 11/30/2023 01:03:27 08/16/20 24 08/17/2024 LIPID PANEL , STAND SALLIE cholesterol, total 117 mg/dL <200 normal Not Available [facility] [address] [address] [place], [address], 08/17/2024 07:08:31 08/16/20 24 08/17/2024 LIPID PANEL , STAND SALLIE HDL cholesterol 46 mg/dL > or = 50 low Not Available [facility] [address] [place], [address], 08/17/2024 07:08:31 08/16/20 24 08/17/2024 LIPID PANEL , STAND SALLIE triglyceride s 100 mg/dL <150 normal Not Available [facility] [address] [place], [address], 08/17/2024 07:08:31 08/16/20 24 08/17/2024 LIPID PANEL , STAND SALLIE LDL-choleste rol 52 mg/dL _(edelmira c) normal Refer ence range : <100 Norma able range <100 mg/dL for prima ry preve ntion ; <70 mg/dL for patie nts with CHD or diabe tic patie nts with > or = 2 CHD risk facto rs. LDL-C is now calcu lated using the [facility] n-Hop kins calcu latio n, which is a valid ated novel metho d provi forrest juarezte r accur acy than the Fried caleb equat ion in the estim ation of LDL-C . Gloria n SS et al. GAB. 2013; 310(1 9): 2061- 2068 (http ://ed ucati on.Qu Guru devlinDiversityDoctor. com/f aq/FA Q164) Not Available [address] [address] [place], [address], 08/17/2024 07:08:31 08/16/20 24 08/17/2024 LIPID PANEL , STAND SALLIE chol/HDLC ratio 2.5 (calc ) <5.0 normal Not Available [address] [address] [place], [address], 08/17/2024 07:08:31 08/16/20 24 08/17/2024 LIPID PANEL , STAND SALLIE non HDL cholesterol 71 mg/dL _(edelmira c) <130 normal For patie nts with diabe portillo plus 1 major ASCVD risk facto r, treat ing to a non-H DL-C goal of <100 mg/dL (LDL- C of <70 mg/dL ) is dallas santanao n. Not Available [address] [address] [address], [place], [address], 08/17/2024 07:08:31 08/16/20 24 08/17/2024 ALBUM IN, RANDO M URINE W/CRE ATINI NE creatinine, random urine 7 mg/dL 20-275 low Not Available [facility] [address] [address] [place], [address], 08/17/2024 07:08:32 08/16/20 24 08/17/2024 ALBUM IN, RANDO M URINE W/CRE ATINI NE albumin, urine <0.2 mg/dL see note: normal Refer ence Range : Refer ence Range Not estab lishe d Not Available [address] [address] [place], [address], 08/17/2024 07:08:32 08/16/20 24 08/17/2024 ALBUM IN, RANDO M URINE W/CRE ATINI NE albumin/crea tinine ratio, random urine NOTE mg/g_ creat <30 normal NOTE: The urine album in value is less than 0.2 mg/dL there fore we are unabl e to calcu late excre tion and/o r creat inine ratio . The ADA defin es abnor malit ies in album in excre tion as follo ws: Album inuri a Categ ory Resul t (mg/g creat inine ) Ada l to Mildl y incre ased <30 Moder ately incre ased 30-29 9 Sever rakesh incre ased > OR = 300 The ADA recom mends that at least two of three speci mens colle cted withi n a 3-6 month perio d be abnor mal befor e consi airam g a patie nt to be withi n a diagn ostic categ ory. Not Available [facility] [address] [address] [place], [address], 08/17/2024 07:08:32 08/16/20 24 08/17/2024 MAGNE SIUM magnesium 2.2 mg/dL 1.5-2. 5 normal Not Available [facility] [address] [place], [address], 08/17/2024 07:08:33 08/16/20 24 08/17/2024 COMPR EHENS ADRIAN METAB OLIC PANEL glucose 161 mg/dL 65-99 high Fasti ng refer ence inter [place] For someo ne witho ut known diabe portillo, a gluco se value >125 mg/dL indic ates that they may have diabe portillo and this shoul d be confi rmed with a follo w-up test. Not Available [facility] [address] [place], [address], 08/17/2024 07:08:34 08/16/20 24 08/17/2024 COMPR EHENS ADRIAN METAB OLIC PANEL urea nitrogen (BUN) 14 mg/dL 7-25 normal Not Available [address], [address], 08/17/2024 07:08:34 08/16/20 24 08/17/2024 COMPR EHENS ADRIAN METAB OLIC PANEL creatinine 0.79 mg/dL 0.50-1 .05 normal Not Available [address], [address], 08/17/2024 07:08:34 08/16/20 24 08/17/2024 COMPR EHENS ADRIAN METAB OLIC PANEL eGFR 85 mL/mi n/1.7 3m2 > or = 60 normal Not Available [address], [address], 08/17/2024 07:08:34 08/16/20 24 08/17/2024 COMPR EHENS ADRIAN METAB OLIC PANEL BUN/creatini ne ratio SEE NOTE: (calc ) 6-22 Not Repor mathew: BUN and Creat inine are withi n refer ence range . Not Available [address], [address], 08/17/2024 07:08:34 08/16/20 24 08/17/2024 COMPR EHENS ADRIAN METAB OLIC PANEL sodium 137 mmol/ L 135-14 6 normal Not Available [address], [address], 08/17/2024 07:08:34 08/16/20 24 08/17/2024 COMPR EHENS ADRIAN METAB OLIC PANEL potassium 4.5 mmol/ L 3.5-5. 3 normal Not Available [address], [address], 08/17/2024 07:08:34 08/16/20 24 08/17/2024 COMPR EHENS ADRIAN METAB OLIC PANEL chloride 104 mmol/ L 98-110 normal Not Available [address], [place], [address], 08/17/2024 07:08:34 08/16/20 24 08/17/2024 COMPR EHENS ADRIAN METAB OLIC PANEL carbon dioxide 27 mmol/ L 20-32 normal Not Available [address], [address], 08/17/2024 07:08:34 08/16/20 24 08/17/2024 COMPR EHENS ADRIAN METAB OLIC PANEL calcium 9.3 mg/dL 8.6-10 .4 normal Not Available [address], [address], 08/17/2024 07:08:34 08/16/20 24 08/17/2024 COMPR EHENS ADRIAN METAB OLIC PANEL protein, total 6.5 g/dL 6.1-8. 1 normal Not Available [address], [address], 08/17/2024 07:08:34 08/16/20 24 08/17/2024 COMPR EHENS ADRIAN METAB OLIC PANEL albumin 4.2 g/dL 3.6-5. 1 normal Not Available [address], [address], 08/17/2024 07:08:34 08/16/20 24 08/17/2024 COMPR EHENS ADRIAN METAB OLIC PANEL globulin 2.3 g/dL_ (calc ) 1.9-3. 7 normal Not Available [address], [address], 08/17/2024 07:08:34 08/16/20 24 08/17/2024 COMPR EHENS ADRIAN METAB OLIC PANEL albumin/glob ulin ratio 1.8 (calc ) 1.0-2. 5 normal Not Available [address], [address], 08/17/2024 07:08:34 08/16/20 24 08/17/2024 COMPR EHENS ADRIAN METAB OLIC PANEL bilirubin, total 0.4 mg/dL 0.2-1. 2 normal Not Available [address], [address], 08/17/2024 07:08:34 08/16/20 24 08/17/2024 COMPR EHENS ADRIAN METAB OLIC PANEL alkaline phosphatase 65 U/L 37-153 normal Not Available [address], [address], 08/17/2024 07:08:34 08/16/20 24 08/17/2024 COMPR EHENS ADRIAN METAB OLIC PANEL AST 20 U/L 10-35 normal Not Available [address], [address], 08/17/2024 07:08:34 08/16/20 24 08/17/2024 COMPR EHENS ADRIAN METAB OLIC PANEL ALT 23 U/L 6-29 normal Not Available [address], [address], 08/17/2024 07:08:34 08/16/20 24 08/17/2024 URINA LYSIS , COMPL ETE W/REF RUBI TO CULTU RE color YELLOW yellow normal Not Available [address], [address], 08/17/2024 07:08:35 08/16/20 24 08/17/2024 URINA LYSIS , COMPL ETE W/REF RUBI TO CULTU RE appearance CLEAR clear normal Not Available [address], [address], 08/17/2024 07:08:35 08/16/20 24 08/17/2024 URINA LYSIS , COMPL ETE W/REF RUBI TO CULTU RE specific gravity 1.005 1.001- 1.035 normal Not Available [address], [place], [address], 08/17/2024 07:08:35 08/16/20 24 08/17/2024 URINA LYSIS , COMPL ETE W/REF RUBI TO CULTU RE pH 6.5 5.0-8. 0 normal Not Available [facility] [address], [address], 08/17/2024 07:08:35 08/16/20 24 08/17/2024 URINA LYSIS , COMPL ETE W/REF RUBI TO CULTU RE glucose 2+ negati ve abnormal Not Available [facility] [address], [address], 08/17/2024 07:08:35 08/16/20 24 08/17/2024 URINA LYSIS , COMPL ETE W/REF RUBI TO CULTU RE bilirubin NEGATI VE negati ve normal Not Available [facility] [address], [address], 08/17/2024 07:08:35 08/16/20 24 08/17/2024 URINA LYSIS , COMPL ETE W/REF RUBI TO CULTU RE ketones NEGATI VE negati ve normal Not Available [facility] [address], [address], 08/17/2024 07:08:35 08/16/20 24 08/17/2024 URINA LYSIS , COMPL ETE W/REF RUBI TO CULTU RE occult blood NEGATI VE negati ve normal Not Available [facility] [address] [place], [address], 08/17/2024 07:08:35 08/16/20 24 08/17/2024 URINA LYSIS , COMPL ETE W/REF RUBI TO CULTU RE protein NEGATI VE negati ve normal Not Available [facility] [address] [place], [address], 08/17/2024 07:08:35 08/16/20 24 08/17/2024 URINA LYSIS , COMPL ETE W/REF RUBI TO CULTU RE nitrite NEGATI VE negati ve normal Not Available [address], [address], 08/17/2024 07:08:35 08/16/20 24 08/17/2024 URINA LYSIS , COMPL ETE W/REF RUBI TO CULTU RE leukocyte esterase NEGATI VE negati ve normal Not Available [address], [address], 08/17/2024 07:08:35 08/16/20 24 08/17/2024 URINA LYSIS , COMPL ETE W/REF RUBI TO CULTU RE WBC 0-5 /hpf < or = 5 normal Not Available [address], [address], 08/17/2024 07:08:35 08/16/20 24 08/17/2024 URINA LYSIS , COMPL ETE W/REF RUBI TO CULTU RE RBC NONE SEEN /hpf < or = 2 normal Not Available [address], [address], 08/17/2024 07:08:35 08/16/20 24 08/17/2024 URINA LYSIS , COMPL ETE W/REF RUBI TO CULTU RE squamous epithelial cells NONE SEEN /hpf < or = 5 normal Not Available [address], [address], 08/17/2024 07:08:35 08/16/20 24 08/17/2024 URINA LYSIS , COMPL ETE W/REF RUBI TO CULTU RE bacteria NONE SEEN /hpf none seen normal Not Available [address], [address], 08/17/2024 07:08:35 08/16/20 24 08/17/2024 URINA LYSIS , COMPL ETE W/REF RUBI TO CULTU RE hyaline cast NONE SEEN /lpf none seen normal Not Available [address], [address], 08/17/2024 07:08:35 08/16/20 24 08/17/2024 REFLE XIVE URINE CULTU RE reflexive urine culture NO CULTU RE INDIC ATED Not Available [address], [address], 08/17/2024 07:08:37 08/16/20 24 08/17/2024 CBC (INCL UDES DIFF/ PLT) white blood cell count 7.3 thous and/u L 3.8-10 .8 normal Not Available [address], [address], 08/17/2024 07:08:37 08/16/20 24 08/17/2024 CBC (INCL UDES DIFF/ PLT) red blood cell count 4.58 shiloh on/uL 3.80-5 .10 normal Not Available [address], [address], 08/17/2024 07:08:37 08/16/20 24 08/17/2024 CBC (INCL UDES DIFF/ PLT) hemoglobin 13.6 g/dL 11.7-1 5.5 normal Not Available [address], [address], 08/17/2024 07:08:37 08/16/20 24 08/17/2024 CBC (INCL UDES DIFF/ PLT) hematocrit 41.3 % 35.0-4 5.0 normal Not Available [address], [address], 08/17/2024 07:08:37 08/16/20 24 08/17/2024 CBC (INCL UDES DIFF/ PLT) MCV 90.2 fL 80.0-1 00.0 normal Not Available [address], [address], 08/17/2024 07:08:37 08/16/20 24 08/17/2024 CBC (INCL UDES DIFF/ PLT) MCH 29.7 pg 27.0-3 3.0 normal Not Available [address], [address], 08/17/2024 07:08:37 08/16/20 24 08/17/2024 CBC (INCL UDES DIFF/ PLT) MCHC 32.9 g/dL 32.0-3 6.0 normal For adult s, a sligh t decre ase in the calcu lated MCHC value (in the range of 30 to 32 g/dL) is most likel y not clini jose signi gala t; spike er, it shoul d be inter prete d with cauti on in corre lat n with other red cell cezar eters and the patie nt's clini edelmira condi tion. Not Available [address], [address], 08/17/2024 07:08:37 08/16/20 24 08/17/2024 CBC (INCL UDES DIFF/ PLT) RDW 12.5 % 11.0-1 5.0 normal Not Available [address], [address], 08/17/2024 07:08:37 08/16/20 24 08/17/2024 CBC (INCL UDES DIFF/ PLT) platelet count 319 thous and/u L 140-40 0 normal Not Available [address], [address], 08/17/2024 07:08:37 08/16/20 24 08/17/2024 CBC (INCL UDES DIFF/ PLT) MPV 10.3 fL 7.5-12 .5 normal Not Available [address], [address], 08/17/2024 07:08:37 08/16/20 24 08/17/2024 CBC (INCL UDES DIFF/ PLT) absolute neutrophils 3752 cells /uL 1500-7 800 normal Not Available [address], [address], 08/17/2024 07:08:37 08/16/20 24 08/17/2024 CBC (INCL UDES DIFF/ PLT) absolute lymphocytes 2628 cells /uL 850-39 00 normal Not Available [address], [address], 08/17/2024 07:08:37 08/16/20 24 08/17/2024 CBC (INCL UDES DIFF/ PLT) absolute monocytes 715 cells /uL 200-95 0 normal Not Available [address], [address], 08/17/2024 07:08:37 08/16/20 24 08/17/2024 CBC (INCL UDES DIFF/ PLT) absolute eosinophils 124 cells /uL 15-500 normal Not Available [address], [address], 08/17/2024 07:08:37 08/16/20 24 08/17/2024 CBC (INCL UDES DIFF/ PLT) absolute basophils 80 cells /uL 0-200 normal Not Available [address], [address], 08/17/2024 07:08:37 08/16/20 24 08/17/2024 CBC (INCL UDES DIFF/ PLT) neutrophils 51.4 % normal Not Available [address], [address], 08/17/2024 07:08:37 08/16/20 24 08/17/2024 CBC (INCL UDES DIFF/ PLT) lymphocytes 36.0 % normal Not Available [address], [address], 08/17/2024 07:08:37 08/16/20 24 08/17/2024 CBC (INCL UDES DIFF/ PLT) monocytes 9.8 % normal Not Available [address], [address], 08/17/2024 07:08:37 08/16/20 24 08/17/2024 CBC (INCL UDES DIFF/ PLT) eosinophils 1.7 % normal Not Available [address], [address], 08/17/2024 07:08:37 08/16/20 24 08/17/2024 CBC (INCL UDES DIFF/ PLT) basophils 1.1 % normal Not Available [address], [address], 08/17/2024 07:08:37 08/16/20 24 08/17/2024 VITAM IN B12/F OLATE , SERUM PANEL vitamin B12 508 pg/mL 200-11 00 normal Not Available [address], [address], 08/17/2024 07:08:39 08/16/20 24 08/17/2024 VITAM IN B12/F OLATE , SERUM PANEL folate, serum 19.4 NG/mL normal Refer ence Range Low: <3.4 Borde rline : 3.4-5 .4 Ada l: >5.4 Not Available [address], [address], 08/17/2024 07:08:39 08/16/20 24 08/17/2024 VITAM IN D,25- OH,TO RASHAUN,I A vitamin D,25-oh,tota l,ia 96 NG/mL 30-100 normal Vitam in D Statu s 25-OH Vitam in D: Defic iency : <20 ng/mL Insuf ficie ncy: 20 - 29 ng/mL Optim al: > or = 30 ng/mL For 25-OH Vitam in D testi ng on patie nts on D2-covarrubias pplem entat ion and patie nts for whom quant itati on of D2 and D3 fract ions is requi red, the [facility] Assur eD(TM ) 25-OH VIT D, (D2,D 3), LC/MS /MS is recom jaxon d: order code 96864 (aris ents >2yrs ). See Note 1 Note 1 For addit ional infor marilynn jensen refer to http: //[facility] Melo stDia gnost ics.c om/fa q/FAQ 199 (This link is being provi ded for infor trish chiu/ educa sheryl l purpo ses only. ) Not Available [employer] [facility] [address] [place], [address], 08/17/2024 07:08:40 08/16/20 24 08/17/2024 HEMOG LOBIN A1C hemoglobin A1C 7.1 %_of_ total _HGB <5.7 high For someo ne witho ut known diabe portillo, a hemog lobin A1c value of 6.5% or great er indic ates that they may have diabe portillo and this shoul d be confi rmed with a follo w-up test. For someo ne with known diabe portillo, a value <7% indic ates that their diabe portillo is well contr olled and a value great er than or equal to 7% indic ates subop timal contr ol. A1c targe ts shoul d be indiv idual ized based on durat ion of diabe portillo, age, comor bid condi tions , and other consi derat ions. Curre ntly, no conse nsus exist s regar ding use of hemog lobin A1c for diagn osis of diabe portillo for child joseph. Not Available [employer] [facility] [address] [place], [address], 08/17/2024 07:08:41 08/03/20 23 08/03/2023 MAMMO , scree diya, bilat eral No observ ation record ed. [email or web address] [facility] [address], [place], [address], 08/12/2023 09:04:03 11/01/19 24 2023 MAMMO , diagn ostic , digit al, unila teral No observ ation record ed. [address], [place], [address], 12/01/2023 09:31:40 02/24/20 24 02/24/2024 US, thyro id No observ ation record ed. [address], [place], [address], 06/20/2024 09:14:31 03/10/20 24 03/09/2024 DEXA No observ ation record ed. [address], [place], [address], 06/20/2024 09:14:31 06/29/20 24 06/29/2024 XR, chest , 2 view No observ ation record ed. [address] [facility], [place], [address], 08/15/2024 09:35:19 07/19/20 24 07/19/2024 US, doppl er echoc ardio gram No observ ation record ed. [address] [facility] [address] [facility] [address], [place], [address], 08/15/2024 09:35:19 08/09/20 24 08/09/2024 MRI, lumba r spine , w/o contr ast No observ ation record ed. [address], [place], [address], 08/15/2024 09:35:19 Result Notes None recorded. Problems Name Problem SNOMED Code Status Onset Date Resolution Date Notes Provider Name and Address Organization Details Recorded Time Pain of bilateral knee joints 09242792183 4104 Active 2022 Spiek Garcia MD [address] [facility] [address], [address], [place], [address] , [place] [facility] 3 09:13:42 Mammograp hy abnormal 501531617 Active 2022 Spike Garcia MD [address], [address], [place], [address] , [place] [employer] [facility] 3 11:57:33 Chronic chest pain 25571333337 4101 Active 2023 Spike Garcia MD [address], [place], [address] , [place] [facility] [employer] [facility] 4 09:16:55 Chronic neck pain 25190959503 07 Active 2017 Not Available [employer] 3 04:50:36 Disorder of trunk 735454557 Completed Not Available [employer] 3 04:50:36 Chronic back pain 042246775 Active 2020 Not Available [employer] 3 04:50:36 Chronic thoracic back pain 97209438661 9103 Active 2017 Not Available [employer] 3 04:50:36 Hyperkale alexia 71467264 Active 2017 Not Available [facility] 3 04:50:36 Pain of bilateral hands 66723350647 306950 Active 2019 Not Available [facility] 3 04:50:36 Backache 947662934 Completed Not Available [employer] 3 04:50:36 Hypomagne semia 405820024 Active 2017 Not Available [facility] 3 04:50:36 Fibromyal esteban 131080387 Active 2017 Not Available [facility] 3 04:50:36 Abdominal pain 66422108 Completed Not Available [employer] 3 04:50:36 Gallstone 978695881 Active 2018 Not Available [facility] 3 04:50:37 Chronic constipat ion 367607450 Active 2017 Not Available [facility] 3 04:50:37 Overweigh t 161323629 Active 2021 Not Available [employer] 3 04:50:37 Degenerat ion of lumbar intervert ebral disc 87846846 Active 2019 Not Available [employer] 3 04:50:37 Gastroeso phageal reflux disease without esophagit is 545677156 Active 2017 Not Available [facility] 3 04:50:37 Anemia 685272739 Active 2017 Not Available [facility] 3 04:50:37 Chronic low back pain 366947813 Active 2017 Not Available [facility] 3 04:50:37 Knee pain Completed Not Available [employer] 3 04:50:37 Type 2 diabetes mellitus without complicat ion 562898235 Active 2017 Not Available [facility] 3 04:50:37 Blood in urine 49796458 Completed Not Available [employer] 3 04:50:38 Vitamin D deficienc y 49327080 Active 2019 Not Available [facility] 3 04:50:38 Dyslipide alexia 632836841 Active 2021 Not Available [facility] 3 04:50:38 Hypertens adrian disorder 18447918 Active 2017 Not Available [facility] 3 04:50:38 Neuropath y 793900866 Active 2017 Not Available [facility] 3 04:50:38 Adhesive capsuliti s of shoulder 725298131 Active Not Available [employer] 3 04:50:38 Hypothyro idism 21522962 Active 2019 Not Available [employer] 3 04:50:38 Vomiting 621783305 Completed Not Available [facility] 3 04:50:39 Latent autoimmun e diabetes mellitus in adult 340587295 Active 2021 Not Available [facility] 3 04:50:39 Chronic headache disorder 455587728 Active 2017 Not Available [facility] 3 04:50:39 Uncontrol led type 2 diabetes mellitus 441091262 Active 2022 Not Available [facility] 3 04:50:39 Shoulder pain 18006625 Completed Not Available [facility] 3 04:50:39 Hyperlipi demia 90781060 Active Not Available [facility] 3 04:50:39 Migraine without aura 11220657 Completed 201705/03/2018 Not Available [facility] 3 04:50:39 Vitamin B12 deficienc y (non anemic) 91991775 Active 2017 Not Available [facility] 3 04:50:40 Osteoporo sis 34936899 Active 2017 Not Available [facility] 3 04:50:40 Hypercalc emia 80107400 Completed Not Available [facility] 3 04:50:40 Liver enzymes level above reference range 557604406 Active 2019 Not Available [facility] 3 04:50:40 Diabetes mellitus 04271663 Active 2019 Not Available [facility] 3 04:50:40 Chronic idiopathi c constipat ion 62980086 Active 2020 Not Available [facility] 3 04:50:41 Fatigue 57409757 Active 2017 Not Available [facility] 3 04:50:41 Degenerat ion of thoracolu mbar intervert ebral disc 60341045 Active 2017 Not Available [facility] 3 04:50:41 Kidney stone 36394548 Active Not Available [facility] 3 04:50:41 Notes:BACK/NECK PROBLEMS Problem Notes None recorded. Procedures Surgical History Date Name Laterality Status Provider Name and Address Organization Details Recorded Time 02/10/20 17 Most Recent Bone Density completed Not Available [facility] 11/25/2022 04:42:05 09/27/19 14 Date of Last Colonoscopy completed Not Available [facility] 11/25/2022 04:42:05 cystoscopy completed Not Available [facility] 11/25/2022 04:42:10 Kidney Stones completed Not Available [facility] 11/25/2022 04:42:10 Imaging Results Imaging Date Name Status LastModified by Organization Details LastModified Time 08/03/2023 MAMMO, screening, bilateral completed [address], [address], 08/12/2023 09:04:03 2023 MAMMO, diagnostic, digital, unilateral completed [address], [address], 12/01/2023 09:31:40 02/24/2024 US, thyroid completed [address], [address], 06/20/2024 09:14:31 03/09/2024 DEXA completed [address], [address], 06/20/2024 09:14:31 06/29/2024 XR, chest, 2 view completed [address] [place], [address], 08/15/2024 09:35:19 07/19/2024 US, doppler echocardiogram completed [address] [facility] [address] [facility] [address], [place], [address], 08/15/2024 09:35:19 08/09/2024 MRI, lumbar spine, w/o contrast completed [address], [address], 08/15/2024 09:35:19 Procedure Notes None recorded. Medical Equipment None Reported. Allergies No known drug allergies Medications Name Sig Start Date Stop Date Status Note LastModified by Organization Details LastModified Time multivita min tablet Take 1 tablet every day by oral route for 90 days. 04/22 completed Not Available Not Available Not Available losartan 50 mg tablet 1 tab po QAM 06/02 completed Not Available Not Available Not Available cyclobenz aprine 10 mg tablet 1 tab po q12hrs prn. active Not Available Not Available No t Available amoxicill in 500 mg capsule 10/17 completed Not Available Not Available Not Available metformin 500 mg tablet Take 1 tablet twice a day by oral route. 2014 active Not Available Not Available Not Avai lable clonidine HCl 0.1 mg tablet Take 1 tablet twice a day by oral route as needed for 30 days. 05/02 completed Not Available Not Available Not Available prednison e 10 mg tablet Take 1 tablet every day by oral route as directed for 7 days. active Take 40mg on day 1,2; Than 20mg on day 3,4; Than 10mg on day 5,6,7. Take with food. Not Available Not Available Not Available gabapenti n 600 mg tablet Take 1 tablet every 8 hours by oral route as directed for 30 days. 2023 active Not Available Not Available Not Avai lable cyanocoba andreea (vit B-12) 2,500 mcg sublingua l tablet Place 1 tablet every day by sublingu al route for 30 days. 09/11 completed Not Available Not Available Not Available cetirizin e 10 mg tablet TAKE 1 TABLET BY MOUTH ONCE DAILY DIRECTED FOR 30 DAYS 07/22 completed Not Available Not Available Not Available atorvasta tin 10 mg tablet TAKE 1 TABLET BY MOUTH ONCE DAILY AT BEDTIME 2023 active Not Available Not Available Not Avai lable Tab-A-Vit e tablet 07/22 completed Not Available Not Available Not Available azithromy arlet 250 mg tablet TAKE 2 TABLETS (500 MG) BY ORAL ROUTE ONCE DAILY FOR 1 DAY THEN 1 TABLET (250 MG) BY ORAL ROUTE ONCE DAILY FOR 4 DAYS active Not Available Not Available No t Available ibuprofen 800 mg tablet 12/21 completed Not Available Not Available Not Available benzonata te 200 mg capsule Take 1 capsule every 8 hours by oral route as needed for 10 days. active Not Available Not Available No t Available metoprolo l succinate ER 50 mg tablet,ex tended release 24 hr active Not Available Not Available Not Available hydrocodo ne 5 mg-acetam inophen 325 mg tablet Take 1 to 2 tablets every 4 hours as needed for pain. active Not Available Not Available No t Available glipizide ER 10 mg tablet, extended release 24 hr Take 1 tablet every day by oral route in the morning for 90 days. 06/08 completed Not Available Not Available Not Available prednison e 20 mg tablet active Not Available Not Available Not Available alendrona te 70 mg tablet TAKE 1 TABLET BY MOUTH ONCE A WEEK DIRECTED active Not Available Not Available No t Available gabapenti n 400 mg capsule TAKE 1 CAPSULE BY MOUTH EVERY 8 HOURS DIRECTED 12/04 completed Not Available Not Available Not Available glipizide ER 5 mg tablet, extended release 24 hr Take 2 tablets every day by oral route. 04/18 completed Not Available Not Available Not Available Lantus U-100 Insulin 100 unit/mL subcutane ous solution Inject 10 units every day by subcutan eous route at bedtime for 90 days. 02/10 completed Not Available Not Available Not Available phentermi ne 15 mg capsule TAKE 1 CAPSULE BY MOUTH ONCE DAILY IN THE MORNING 06/09 completed Not Available Not Available Not Available penicilli n V potassium 500 mg tablet Take 1 tablet twice a day by oral route after meals for 10 days. active Not Available Not Available No t Available sulfameth oxazole 800 mg-trimet hoprim 160 mg tablet active Not Available Not Available Not Available omeprazol e 40 mg capsule,d elayed release TAKE 1 CAPSULE BY MOUTH ONCE DAILY 30 MINUTES BEFORE BREAKFAS T active Not Available Not Available No t Available aspirin 81 mg tablet,de layed release Take 1 tablet every day by oral route. 03/21 completed Not Available Not Available Not Available tramadol 50 mg tablet active Not Available Not Available Not Available phentermi ne 30 mg capsule TAKE 1 CAPSULE BY MOUTH ONCE DAILY IN THE MORNING active Not Available Not Available No t Available glimepiri de 2 mg tablet TAKE 2 TABLETS BY MOUTH TWICE DAILY BEFORE MEAL(S) 07/06 completed Not Available Not Available Not Available levothyro xine 25 mcg tablet TAKE 1 TABLET BY MOUTH ONCE DAILY IN THE MORNING active Not Available Not Available No t Available meloxicam 7.5 mg tablet TAKE 1 TABLET BY MOUTH EVERY 12 HOURS NEEDED WITH FOOD active Not Available Not Available No t Available losartan 100 mg-hydroc hlorothia zide 25 mg tablet Take 1 tab po QAM (Ok for separate meds) 03/21 completed Not Available Not Available Not Available tamsulosi n 0.4 mg capsule active Not Available Not Available Not Available OneTouch Ultra Test strips USE 1 STRIP TO CHECK GLUCOSE 2-4 TIMES DAILY active Not Available Not Available No t Available baclofen 10 mg tablet TAKE 1 TABLET BY MOUTH EVERY 8-12 HRS NEEDED 2023 active Not Available Not Available Not Avai lable glipizide ER 2.5 mg tablet, extended release 24 hr Take 1 tablet every day by oral route. active Not Available Not Available No t Available cyanocoba andreea (vit B-12) 1,000 mcg/mL injection solution Inject 1 mL every week by intramus cular route as directed for 30 days. active Not Available Not Available No t Available oseltamiv ir 75 mg capsule TAKE 1 CAPSULE BY MOUTH EVERY 12 HOURS FOR 5 DAYS 06/01 completed Not Available Not Available Not Available telmisart an 40 mg tablet Take 1 tablet every day by oral route. active Not Available Not Available No t Available ferrous sulfate 325 mg (65 mg iron) tablet TAKE 1 TABLET BY MOUTH ONCE DAILY WITH MEALS 2023 active Not Available Not Available Not Avai lable metformin 1,000 mg tablet Take 1 tablet twice a day by oral route. active Not Available Not Available No t Available ranitidin e 150 mg tablet Take 1 tablet twice a day by oral route as directed for 30 days. active Not Available Not Available No t Available promethaz ine 25 mg tablet 09/22 completed Not Available Not Available Not Available docusate sodium 100 mg capsule Take 1 capsule twice a day by oral route as directed for 30 days. active Not Available Not Available No t Available gabapenti n 300 mg capsule TAKE 1 CAPSULE BY MOUTH THREE TIMES DAILY active Not Available Not Available No t Available diclofena c sodium 75 mg tablet,de layed release 02/16 completed Not Available Not Available Not Available insulin syringe U-100 with needle 1 mL 31 gauge x 02/09 active Not Available Not Available Not Available hydroxyzi ne HCl 25 mg tablet Take 1 tablet every 6-8 hours by oral route as needed for 10 days. active Take as needed for itching & rash. Not Available Not Available Not Available hydrochlo rothiazid e 25 mg tablet TAKE 1 TABLET BY MOUTH ONCE DAILY IN THE MORNING active Not Available Not Available No t Available gabapenti n 100 mg capsule Take 2 capsules 3 times a day by oral route as directed for 30 days. active 1st TIME ONLY: Take 1 cap bid for 3 days; Than 2 cap bid for 3-5 days; Than 2 cap tid afterwar ds. Not Available Not Available Not Available ergocalci ferol (vitamin D2) 1,250 mcg (50,000 unit) capsule TAKE 1 CAPSULE BY MOUTH ONCE A WEEK DIRECTED active Not Available Not Available No t Available ibuprofen 600 mg tablet TAKE 1 TABLET BY MOUTH EVERY 8 HOURS NEEDED FOR 7 DAYS active Not Available Not Available No t Available polyethyl boo glycol 3350 17 gram/dose oral powder Take 17 g every day by oral route as needed for 30 days. active Not Available Not Available No t Available ferrous sulfate 325 mg (65 mg iron) tablet,de layed release TAKE 1 TABLET BY MOUTH ONCE DAILY WITH MEALS active Not Available Not Available No t Available ondansetr on 4 mg disintegr ating tablet active Not Available Not Available Not Available losartan 100 mg tablet TAKE 1 TABLET BY MOUTH ONCE DAILY DIRECTED active Not Available Not Available No t Available metformin ER 500 mg tablet,ex tended release 24 hr Take 2 tablets twice a day by oral route with meals for 90 days. 12/10 completed Not Available Not Available Not Available magnesium 250 mg (as magnesium oxide) tablet Take 1 tablet every day by oral route for 30 days. 04/22 completed Not Available Not Available Not Available insulin lispro (U-100) 100 unit/mL subcutane ous pen INJECT 4 UNITS 3 TIMES A DAY BY SUBCUTAN EOUS ROUTE BEFORE MEALS active Not Available Not Available No t Available cyclobenz aprine 5 mg tablet TAKE 1 TABLET BY MOUTH EVERY 12 HOURS NEEDED 04/22 completed Not Available Not Available Not Available metformin ER 750 mg tablet,ex tended release 24 hr Take 2 tablets every day by oral route. active Not Available Not Available No t Available Alcohol Prep Pads USE ONE SWAB 4-5 TIMES DAILY 2023 active Not Available Not Available Not Avai lable metformin ER 1,000 mg tablet,ex tended release 24hr (osmotic) active Not Available Not Available No t Available OneTouch UltraSoft Lancets USE TO CHECK GLUCOSE 4 TIMES DAILY DIRECTED active Not Available Not Available No t Available losartan 100 mg-hydroc hlorothia zide 12.5 mg tablet Take 1 tablet every day by oral route in the morning for 30 days. 07/07 completed Not Available Not Available Not Available atorvasta tin 2014 active Not Available Not Available Not Avai lable telmisart an 2014 active Not Available Not Available Not Avai lable BD Insulin Syringe Ultra-Fin e (half unit) 0.3 mL 31 gauge x 516 11/04 completed Not Available Not Available Not Available Januvia 100 mg tablet Take 1 tablet every day by oral route in the morning for 30 days. 05/03 completed Not Available Not Available Not Available Calcium 600 + D(3) 600 mg-10 mcg (400 unit) tablet Take 1 tablet twice a day by oral route for 30 days. 09/11 completed Not Available Not Available Not Available Trueresul t Blood Glucose System kit 09/11 completed Not Available Not Available Not Available GaviLyte- N 420 gram oral solution 09/22 completed Not Available Not Available Not Available liragluti de 0.6 mg/0.1 mL (18 mg/3 mL) subcutane ous pen injector INJECT 1.8 MG (3 ML) SUBCUTAN EOUSLY ONCE DAILY active Not Available Not Available No t Available Tirosint 25 mcg capsule TAKE 1 CAPSULE BY MOUTH ONCE DAILY active Not Available Not Available No t Available Tradjenta 5 mg tablet Take 1 tablet every day by oral route. 09/23 completed Not Available Not Available Not Available TRUEplus Insulin 0.5 mL 31 gauge x 02/09 syringe USE DIRECTED active Not Available Not Available No t Available Ultra Thin Lancets 30 gauge 12/10 completed Not Available Not Available Not Available Virtussin AC 10 mg-100 mg/5 mL oral liquid Take 10 mL every 6-8 hours by oral route as needed for 5 days. 01/18 completed Not Available Not Available Not Available Levemir FlexTouch U-100 Insulin 100 unit/mL (3 mL) subcutane ous pen Inject 10 units every bedtime 02/05 completed finsih 1 month of sample then change to lantus solostar Not Available Not Available Not Available Bydureon 2 mg/0.65 mL subcutane ous pen injector INJECT 2 MG SUBCUTAN EOUSLY ONCE A WEEK DIRECTED 07/08 completed Not Available Not Available Not Available Jardiance 10 mg tablet TAKE 1 TABLET BY MOUTH ONCE DAILY active Not Available Not Available No t Available Basaglar KwikPen U-100 Insulin 100 unit/mL (3 mL) subcutane ous INJECT 12 UNITS SUBCUTAN EOUSLY IN THE MORNING (DEPENDI NG ON SUGARS) AND 20 UNITS IN THE EVENING (DEPENDI NG ON SUGARS) active Not Available Not Available No t Available TRUEplus Pen Needle 31 gauge x 5/16 USE 1 TO INJECT INSULIN 4 TIMES DAILY TO FIVE TIMES DAILY active Not Available Not Available No t Available TRUEplus Pen Needle 31 gauge x 3/16 USE TO INJECT INSULIN UP TO 5 TIMES DAILY active Not Available Not Available No t Available TRUEplus Pen Needle 32 gauge x 5/32 USE 1 PEN NEEDLE 4 TIMES DAILY active Not Available Not Available No t Available Admelog U-100 Insulin lispro 100 unit/mL subcutane ous solution INJECT 12 UNITS SUBCUTAN EOUSLY THREE TIMES DAILY BEFORE MEAL(S) active Not Available Not Available No t Available OneTouch Ultra Blue Test Strip USE STRIP TO CHECK GLUCOSE UP TO 4 TIMES DAILY BEFORE MEAL(S) AND AT BEDTIME active Not Available Not Available No t Available BD Veo Insulin Syringe Ultra-Fin e 1/2 mL 31 gauge x 15/64 active Not Available Not Available Not Available Dexcom G6 Transmitt er device CHANGE EVERY 90 DAYS 06/01 completed Not Available Not Available Not Available OneTouch Ultra2 Meter USE DIRECTED active Not Available Not Available No t Available OneTouch Delica Plus Lancet 33 gauge USE 1 TO CHECK GLUCOSE 2-4 TIMES DAILY active Not Available Not Available No t Available Gvoke HypoPen 1-Pack 1 mg/0.2 mL subcutane ous auto-inje ctor INJECT 1 MG (O.2 ML) SUBCUTAN EOUSLY ONCE, MAY REPEAT ONCE AFTER 15 MINUTES IF NO RESPONSE active Not Available Not Available No t Available Tab-A-Vit e 400 mcg tablet Take 1 tablet by mouth once daily 2024 active Not Available Not Available Not Avai lable Tab-A-Vit e Multivita min w-iron 15 mg iron-400 mcg tablet Take 1 tablet every day by oral route as directed for 90 days. active Not Available Not Available No t Available FreeStyle Juan 3 Sensor device CHANGE SENSOR EVER 14 DAYS active Not Available Not Available No t Available FreeStyle Juan 3 [place] active Not Available Not Available Not Available Vitals Date Recorded Body height Body mass index (BMI) Body weight Body temperature Oxygen saturation Oxygen saturation in Arterial blood by Pulse oximetry Systolic blood pressure Diastolic blood pressure Provider Name and Address Organization Details Last Updated DateTime 3 154.94 cm 26.1 kg/m2 73486.8 g 98.1 [degF] 98 % 98 % 140 mm[Hg] 82 mm[Hg] Hernando Ellis [facility] [employer] [facility] 3 09:29:21 Date Recorded Heart rate Provider Name an d Address Organization Details Last Updated DateTime 08/30/2023 94 /min Anthony Scott [address] [place] [address], [id number], [facility] [employer] [facility] 08/30/2023 09:45:03 Date Recorded Body height Body mass index (BMI) Body weight Body temperature Heart rate Respiratory rate Oxygen saturation Oxygen saturation in Arterial blood by Pulse oximetry Pain severity - 0-10 verbal numeric rating [Score] - Reported Systolic blood pressure Diastolic blood pressure Provider Name and Address Organization Details Last Updated DateTime 4 154.94 cm 25.6 kg/m2 94978.7 2 g 96.6 [degF] 89 /min 20 /min 99 % 99 % 0 128 mm[Hg] 68 mm[Hg] Shana Bills RN [facility] [employer] [facility] 4 09:30:04 Date Recorded Body height Body mass index (BMI) Body weight Body temperature Heart rate Respiratory rate Oxygen saturation Oxygen saturation in Arterial blood by Pulse oximetry Systolic blood pressure Diastolic blood pressure Provider Name and Address Organization Details Last Updated DateTime 4 154.94 cm 26.1 kg/m2 79557.4 5 g 98 [degF] 82 /min 16 /min 98 % 98 % 118 mm[Hg] 72 mm[Hg] Hernando Ellis [facility] [employer] [facility] 4 09:11:19 Date Recorded Body height Body mass index (BMI) Body weight Body temperature Heart rate Oxygen saturation Oxygen saturation in Arterial blood by Pulse oximetry Systolic blood pressure Diastolic blood pressure Provider Name and Address Organization Details Last Updated DateTime 4 154.94 cm 25.8 kg/m2 28588.3 1 g 98.1 [degF] 75 /min 99 % 99 % 128 mm[Hg] 72 mm[Hg] Tanya Painter RN [facility] [employer] [facility] 4 09:32:31 Date Recorded Body height Body mass index (BMI) Body weight Body temperature Heart rate Oxygen saturation Oxygen saturation in Arterial blood by Pulse oximetry Systolic blood pressure Diastolic blood pressure Provider Name and Address Organization Details Last Updated DateTime 4 154.94 cm 25.6 kg/m2 61167.1 3 g 97.2 [degF] 89 /min 99 % 99 % 134 mm[Hg] 60 mm[Hg] Enid Schaefer RN [place] [facility] [place] [employer] [facility] 4 10:26:01 Social History Question Answer Notes LastModified by Organizat ion Details LastModified Time Tobacco Smoking Status Never Smoker Not Available [facility] 11/25/2022 04:07:19 Do You Have An Advance Directive? No MIGRATION.[id number] Information not available 11/25/2022 Do You Wear A Helmet When Biking? No MIGRATION.174043 2520 Information not available 11/25/2022 What Is Your Level Of Caffeine Consumption? Moderate MIGRATION.445015 1496 Information not available 11/25/2022 In The 14 Days Before Symptom Onset, Have You Had Close Contact With A Laboratory-confirm ed COVID-19 While That Case Was Ill? No MIGRATION.[id number] 9145 Information not available 11/25/2022 In The 14 Days Before Symptom Onset, Have You Had Close Contact With A Person Who Is Under Investigation For COVID-19 While That Person Was Ill? No MIGRATION.759404 0039 Information not available 11/25/2022 What Type Of Diet Are You Following? 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 No MIGRATION.916554 1739 Information not available 11/25/2022 Do You Use Insect Repellent Routinely? Yes MIGRATION.175111 6186 Information not available 11/25/2022 Do You Have A Medical Power Of Element Burner? No MIGRATION.962398 1140 Information not available 11/25/2022 Do You Have Any Pets? No MIGRATION.571087 3781 Information not available 11/25/2022 What Is Your Relationship Status? MIGRATION.964553 7170 Information not available 11/25/2022 Do You Use Your Seat Belt Or Car Seat Routinely? Yes MIGRATION.629272 4197 Information not available 11/25/2022 Do You Have Smoke And Carbon Monoxide Detectors In Your Home? Yes MIGRATION.221351 8389 Information not available 11/25/2022 Are There Any Smokers In Your House? No MIGRATION.795335 8211 Information not available 11/25/2022 Do You Participate In Social Media? No MIGRATION.035790 4598 Information not available 11/25/2022 Do You Feel Stressed (tense, Restless, Nervous, Or Anxious, Or Unable To Sleep At Night)? [id number] Pain MIGRATION.525998 2952 Information not available 11/25/2022 Do You Use Any Illicit Or Recreational Drugs? No MIGRATION.147266 0357 Information not available 11/25/2022 Do You Use Sunscreen Routinely? Yes MIGRATION.947784 1417 Information not available 11/25/2022 Has Tobacco Cessation Counseling Been Provided? No MIGRATION.879741 1906 Information not available 11/25/2022 Have You Recently Traveled Abroad? No MIGRATION.905748 8583 Information not available 11/25/2022 Do You Have Any Dietary Restrictions? No MIGRATION.941003 8280 Information not available 11/25/2022 Do You Or Have You Ever Used Any Other Forms Of Tobacco Or Nicotine? No MIGRATION.672384 5083 Information not available 11/25/2022 Sex: Female Functional Status Question Answer Note LastModified by Organizat ion Details LastModified Time What is your exercise level? None MIGRATION.[id number] Information not available 11/25/2022 Mental Status None recorded. Family History Relationship Description Onset Age of this Age Resolved Age Notes LastModified by Organization Details LastModified Time Unspecified Relation Diabetes mellitus [id number] Not available 11/25/2022 04:42:11 Unspecified Relation Hypertensive disorder MIGRATION.435 [id number] Not available 11/25/2022 04:42:11 Medical History Condition Response BLINDNESS N RHEUMATIC FEVER N KIDNEY STONES N BLADDER PROBLEMS N MRSA N OTHER # 1 N POLIO N LUNG DISEASE/DISORDER N RADIATION / CHEMOTHERAPY N COPD N Other # 2 N BLOOD DISEASES N SURGERY N EAR OR HEARING PROBLEMS N MUMPS N FEMALE PROBLEMS / INFECTIONS N BOWEL PROBLEMS N DEPRESSION (INCLUDING POST ) N STROKE/TIA N THYROID DISEASE N ULCERS N BENIGN PROSTATIC HYPERPLASIA N MEASLES N CERVICALGIA N TB SKIN TEST N MYOCARDIAL INFARCTION N PARAPELGIA N OBESITY N GERD/NAUSEA N ANEURYSM N URINARY/BLADDER/KIDNEY PROBLEMS N CORONARY ARTERY DISEASE (CAD) N MENIERE'S DISEASE N ADDICTION CONCERNS N ENDOMETRIOSIS N USE OF BLOOD THINNERS N SKIN PROBLEMS N EMPHYSEMA N GASTROINTESTINAL DISORDER N MUSCLE,JOINT OR BONE PROBLEMS Y GASTROINTESTINAL BLEEDING N BLOOD CLOTS N ASTHMA N CATARACTS N ERECTILE DYSFUNCTION N GI PROBLEMS N CHF N Low Testosterone N NEUROPATHY Y INFERTILITY N AIDS/HIV N FRACTURES N CHEMOTHERAPY / RADIATION N VISION/EYE PROBLEMS N LIVER DISEASE N MALE HYPOGONADISM N HYPERTENSION Y TOURETTE'S N ANXIETY DISORDER N BLOOD TRANSFUSION N ANEMIA/BLOOD DISORDER Y CHRONIC EAR INFECTIONS N BRONCHITIS N TUBERCULOSIS N GLAUCOMA N FOOT PROBLEM N DIVERTICULITIS N SLEEP APNEA N CHICKENPOX N ALLERGIES/HAYFEVER Y INFECTIOUS DISEASE N PROSTATE N HEART ARRHYTHMIA N INSOMNIA N HIGH CHOLESTEROL / HYPERLIPIDEMIA Y EYE PROBLEMS N HYPERTHYROIDISM N EATING DISORDER N EDEMA N CHRONIC PAIN SYNDROME N CONSTIPATION N CAROTID BLOCKAGE N BACK / NECK PROBLEMS Y HAVE YOU BEEN HOSPITALIZED OR SEEN IN [facility] IN THE PAST YEAR ? N ATHEROSCLEROSIS N BREAST PROBLEMS N DIALYSIS N ECZEMA N FIBROMYALGIA N OSTEOPOROSIS Y ARTHRITIS N NO SIGNIFICANT PAST MEDICAL HISTORY N APPENDICITIS N DIABETES, TYPE Y BAD TEETH N HEARTBURN / REFLUX Y ADD/ADHD N AUTISM SPECTRUM DISORDER (ASD) N HEPATITIS / LIVER DISEASE N PULMONARY DISEASE N GOUT N SLEEP DISORDER N ALZHEIMER'S DISEASE N PAIN N DEMENTIA N HERPES N SEIZURES/EPILEPSY N HEADACHES/MIGRAINES N VASCULAR DISEASE N PACEMAKER N DIZZINESS N HEART DISEASE/HEART PROBLEMS N KIDNEY DISEASE N SCARLET FEVER N MULTIPLE SCLEROSIS N DEVELOPMENTAL OR BEHAVIORAL DISORDERS N MENTAL DISORDER/ILLNESS N CANCER: SPECIFY N CARDIAC ARRHYTHMIA N PNEUMONIA N ATRIAL FIBRILLATION N Gall Stones N PULMONARY EMBOLISM N AUTOIMMUNE DISEASE N Gynecological History Statement/Question Response Date of Last Mammogram 10/28/2020 Date of Last Colonoscopy 09/27/2013 Most Recent Bone Density 02/09/2017 Date of Last Pap 06/13/2021 Breast Problems no Discharge no Obstetrics History GPAL:G 0 P 0 0 0 0 Immunizations Vaccine Type Date Status Note Provider Nam e and Address Organization Details Recorded Time Influenza, split virus, quadrivalent, PF 3 completed Hernando garza [place] [facility] 06/14/2023 09:14:11 COVID-19, mRNA, LNP-S, PF, 100 mcg/0.5mL dose or 50 mcg/0.25mL dose 1 completed Not Available [facility] 11/25/2022 05:02:30 COVID-19, mRNA, LNP-S, PF, 100 mcg/0.5mL dose or 50 mcg/0.25mL dose 1 completed Not Available [facility] 11/25/2022 05:02:30 Influenza, split virus, quadrivalent, PF 9 completed Not Available [facility] 11/25/2022 05:02:30 Influenza, split virus, quadrivalent, PF 7 completed Not Available [facility] 11/25/2022 05:02:30 Influenza, split virus, quadrivalent, PF 2 completed Not Available [facility] 11/25/2022 05:02:30 Influenza, split virus, quadrivalent, PF 1 completed Not Available [facility] 11/25/2022 05:02:30 Influenza, split virus, quadrivalent, PF 0 completed Not Available [facility] 11/25/2022 05:02:30 Influenza, split virus, quadrivalent, preservative 6 completed Not Available [facility] 11/25/2022 05:02:30 Influenza, split virus, quadrivalent, PF 5 completed Not Available [facility] 11/25/2022 05:02:31 Influenza, split virus, trivalent, PF 4 completed [facility] Bea[facility] 06/20/2024 10:32:55 Past Encounters Encounter ID Performer Location Encounter Start Date Encounter Closed Date Diagnosis/Indication Diagnosis SNOMED-CT Code Diagnosis ICD10 Code Diagnosis Note [id number] [facility] [address] [address] 01/20/2021 00:00:00 01/20/2021 10:30:53 [id number] [facility] [address] [address] 04/21/2021 00:00:00 04/21/2021 09:47:05 [id number] [facility] Endo Sukumar Cobb [address] [place] [address] 04/22/2021 00:00:00 05/02/2021 13:46:00 [id number] [facility] [address] [place] [address] 06/13/2021 00:00:00 06/13/2021 10:01:31 [id number] [facility] [place] [address] [place] [address] 07/22/2021 00:00:00 07/22/2021 10:14:11 [id number] [facility] [address] [place] [address] 07/31/2021 00:00:00 07/31/2021 10:09:45 [id number] [facility] [address] [place] [address] 08/14/2021 00:00:00 08/14/2021 09:33:58 [id number] [facility] [address] [place] [address] 10/13/2021 00:00:00 10/13/2021 15:15:58 [id number] [facility] [place] [address] [place] [address] 11/03/2021 00:00:00 11/03/2021 10:47:09 [id number] [facility] [address] [place] [address] 12/04/2021 00:00:00 12/04/2021 09:46:31 [id number] [facility] [place] [address] [place] [address] 03/02/2022 00:00:00 03/02/2022 09:59:50 [id number] [facility] [address] [place] [address] 03/05/2022 00:00:00 03/05/2022 09:14:17 [id number] [facility] [address] [place] [address] 06/04/2022 00:00:00 06/04/2022 09:36:39 [id number] [facility] Endo Sukumar Cobb [address] [place] [address] 06/26/2022 00:00:00 06/26/2022 11:03:47 [id number] [facility]_[address] [address] 08/06/2022 00:00:00 08/06/2022 10:26:[id number] [address] 09/09/2022 00:00:00 09/09/2022 17:00:38 [id number] Spike Garcia MD [address] [address] 12/24/2022 15:24:26 12/24/2022 15:49:57 Type 2 diabetes mellitus without complication 055502765 E11.9 Neuropathy 471597176 G62 .9 Hypothyroidism 15428366 E03.9 Hypertensive disorder 38 971559 I10 Hyperlipidemia 97593638 E78.5 Chronic low back pain 27 0246708 M54.50 Anemia 364773863 D64.9 Vitamin D deficiency 347 24141 E55.9 Osteoporosis 82540293 M8 1.0 [id number] Kiara Kolb MD [facility] [address] [place] [address] 01/18/2023 10:50:16 01/18/2023 11:24:22 Latent autoimmune diabetes mellitus in adult 097330684 E13.9 a1c of 6.9% in ideal range- her sensor is causing rashes and too large for patient. She is inquiring on new sensor. WIll provide juan 3 as these are the smallest sensors available. continue on humalog at 1:5 carb ratio or about 10 units before meals in addition to correction dose of 1u:50>150 and continue basaglar 20 units in morning and 22 units at bedtime and continue to increase or decrease by 2 units every 3 days until fasting glucose 90-130 mg/dL. continue victoza 1.2 mg SQ daily as patient tolerating well- weight stable. Send for [place] 3 as she has a smartphone and downloaded tayo in clinic and compliant / wishes to use therapy in lieu of dexcom. Dyslipidemia 584794478 E 78.5 continue statin therapy. Spent up to 25 minutes preparing to see the patient (eg, review of tests), obtaining and/or reviewing separately obtained history, performing a medically appropriat e examinatio n and evaluation , counseling and educating the patient, ordering medication s, tests, along with documentin g clinical informatio n in the electronic health record, independen tly interpreti ng results and communicat ing results to the patient. RTC in 5-6 months. Patient was provided a handwritte n lab order which contains our fax number. If she chooses to go outside of the [facility] system to obtain labwork she was advised to provide our fax number and my informatio n to the lab she will be obtaining labwork from in order to have her labs properly forwarded over for me to review so there is no loss of follow up due to use of outside network. She was also advised to contact our clinic informing us that she has completed her labwork so we are aware we will need to reach out to the appropriat e laboratory to request her results be forwarded to us so I might have the ability to review and make further medical decision making in her case. She voiced understand ing. [id number] Spike Garcia MD [address] [address] 02/15/2023 09:32:29 02/15/2023 10:45:23 Chronic low back pain 532319329 M54.50 Type 2 brisa betes mellitus without complication 020804603 E11.9 Neuropathy 665013327 G62 .9 Hypothyroidism 30140827 E03.9 Hypertensive disorder 38 714988 I10 Hyperlipidemia 72314755 E78.5 Anemia 802662788 D64.9 Vitamin D deficiency 347 86628 E55.9 Osteoporosis 27670298 M8 1.0 [id number] Spike Garcia MD [address] [address] 04/08/2023 08:49:25 04/08/2023 09:21:18 Chronic low back pain 337606550 M54.50 Type 2 brisa betes mellitus without complication 639108386 E11.9 Neuropathy 291783809 G62 .9 Hypothyroidism 23035881 E03.9 Hypertensive disorder 38 963816 I10 Hyperlipidemia 68582895 E78.5 Anemia 461525915 D64.9 Vitamin D deficiency 347 32247 E55.9 Osteoporosis 40695627 M8 1.0 Screening mammography 24 690086 Z12.31 Overweight 995214093 E66 .3 Pain of bi lateral knee joints 2200722012 75520 M25.918 [id number] Kiara Kolb MD [facility] [place] [address] [place] [address] 06/01/2023 09:57:00 06/01/2023 11:25:03 Latent autoimmune diabetes mellitus in adult 460289608 E13.9 a1c of 6.8% in ideal range- per freestyle juan in range 88% of time with range of 120-160 mg/dL. She has no hypoglycem ia. She is compliant with sensor use and this is responsibl e for her control and she has not had hospitaliz ations- continue freestyle juan 3. Continue on humalog at 1:5 carb ratio or about 10 units before meals in addition to correction dose of 1u:50>150 and continue basaglar 20 units in morning and 22 units at bedtime and continue to increase or decrease by 2 units every 3 days until fasting glucose 90-130 mg/dL. Continue victoza 1.2 mg SQ daily as patient tolerating well- weight stable. Send for [facility] for hypoglycem ia rescue. Hyperlipidemia 46976447 E78.5 Continue statin therapy as LDL in range. Hypothyroidism 46405587 E03.9 FT4 in ideal range- continue LT4 25 mcg daily. Spent up to 25 minutes preparing to see the patient (eg, review of tests), obtaining and/or reviewing separately obtained history, performing a medically appropriat e examinatio n and evaluation , counseling and educating the patient, ordering medication s, tests, along with documentin g clinical informatio n in the electronic health record, independen tly interpreti ng results and communicat ing results to the patient. Patient can be followed by PCP - she/he is aware of my resignatio n and last day of July 09. If needed his/her PCP can refer patient to another endocrinol ogist in the area. All questions /concerns answered and refills necessary at visit today. [id number] Spike Garcia MD [address] [address] 06/09/2023 08:47:27 06/09/2023 09:18:25 Chronic low back pain 757888340 M54.50 Type 2 brisa betes mellitus without complication 325567693 E11.9 Neuropathy 466929435 G62 .9 Hypothyroidism 89826170 E03.9 Hypertensive disorder 38 926456 I10 Hyperlipidemia 49492646 E78.5 Anemia 000120921 D64.9 Vitamin D deficiency 347 69357 E55.9 Osteoporosis 58803600 M8 1.0 Overweight 159592556 E66 .3 Pain of bi lateral knee joints 3444923345 96247 M25.562 Administra tion of influenza vaccine 19781831 Z23 [id number] Spike Garcia MD [address] [address] 08/12/2023 08:46:03 08/12/2023 09:28:50 Chronic low back pain 260611044 M54.50 Type 2 brisa betes mellitus without complication 725096649 E11.9 Neuropathy 412228538 G62 .9 Hypothyroidism 62622399 E03.9 Hypertensive disorder 38 643036 I10 Hyperlipidemia 71536698 E78.5 Anemia 760448661 D64.9 Vitamin D deficiency 347 51682 E55.9 Osteoporosis 07366289 M8 1.0 Overweight 742259729 E66 .3 Pain of bi lateral knee joints 1567625595 21058 M25.562 Adult heal th examination 670747665 Z00.00 [id number] Spike Garcia MD [address] [address] 08/30/2023 09:23:51 08/30/2023 09:56:49 Type 2 diabetes mellitus without complication 919826713 E11.9 Chronic low back pain 27 8178329 M54.50 Neuropathy 985377185 G62 .9 Hypothyroidism 28207100 E03.9 Hypertensive disorder 38 441955 I10 Hyperlipidemia 20051590 E78.5 Anemia 992774632 D64.9 Vitamin D deficiency 347 90629 E55.9 Osteoporosis 53560840 M8 1.0 Overweight 054236077 E66 .3 Pain of bi lateral knee joints 1153927892 07939 M25.617 [id number] Spike Garcia MD [address] [address] 12/01/2023 09:22:53 12/01/2023 09:56:42 Type 2 diabetes mellitus without complication 989614759 E11.9 Chronic low back pain 27 7540796 M54.50 Neuropathy 124641658 G62 .9 Hypothyroidism 94322909 E03.9 Hypertensive disorder 38 298676 I10 Hyperlipidemia 34569570 E78.5 Anemia 015026261 D64.9 Pain of bi lateral knee joints 5402050944 13640 M25.562 Chronic Osteoporosis 95842988 M8 1.0 Overweight 032901230 E66 .3 [id number] Spike Garcia MD [address] [address] 06/20/2024 09:01:57 06/20/2024 09:34:38 Type 2 diabetes mellitus without complication 547049722 E11.9 Chronic low back pain 27 7348762 M54.50 Neuropathy 041911581 G62 .9 Hypothyroidism 59080495 E03.9 Hypertensive disorder 38 264267 I10 Hyperlipidemia 66907850 E78.5 Anemia 657875116 D64.9 Pain of bi lateral knee joints 7562548777 13186 M25.562 Chronic Osteoporosis 72734068 M8 1.0 Overweight 034584884 E66 .3 Chronic back pain 569812 002 G89.29 Chronic chest pain 41824 16399 01440 R07.9 Administra tion of influenza vaccine 21422845 Z23 [id number] Spike Garcia MD [address] [address] 08/15/2024 09:25:15 08/15/2024 12:13:44 Chronic low back pain 709422047 M54.50 Type 2 brisa betes mellitus without complication 670158603 E11.9 Neuropathy 203127346 G62 .9 Hypothyroidism 14815539 E03.9 Hypertensive disorder 38 128667 I10 Hyperlipidemia 16574357 E78.5 Anemia 242523463 D64.9 Pain of bi lateral knee joints 2486105741 82284 M25.562 Chronic Osteoporosis 45724892 M8 1.0 Overweight 418352733 E66 .3 Chronic back pain 612606 002 G89.29 Adult heal th examination 556632874 Z00.00 [id number] Spike Garcia MD [facility] [address] [address] 08/23/2024 10:19:05 08/23/2024 10:43:29 Chronic low back pain 626066087 M54.50 Type 2 brisa betes mellitus without complication 844714772 E11.9 Neuropathy 763983999 G62 .9 Hypothyroidism 96954021 E03.9 Hypertensive disorder 38 067327 I10 Hyperlipidemia 28041286 E78.5 Anemia 591434875 D64.9 Pain of bi lateral knee joints 7872723309 57842 M25.562 Chronic Osteoporosis 09956374 M8 1.0 Health Concerns Section Related Observation LastModified by Organization Detai ls LastModified Time None Recorded Concern Status LastModified by Organization Details LastModified Time None Recorded Advance Directives Directive N: Payers Encounter Date Sequence Insurance Name Policy Number Policy Pedroza Covered Member ID Pedroza Member ID Guarantor Name 08/30/2023 1 [facility] (MEDICAID HM) [id number] Daxaben Bustos [id number] Daxaben S Bustos 12/01/2023 1 [facility] (MEDICAID HMO) [id number] Daxaben Bustos [id number] Daxaben S Bustos 06/20/2024 1 [facility] (MEDICAID HMO) [id number] Daxaben Bustos [id number] Daxaben S Bustos 08/15/2024 1 [facility] (MEDICAID HMO) [id number] Daxabechristophe Bustos [id number] Dabrenda Bustos 08/23/2024 1 [facility] (MEDICAID HMO) [id number] Daxabechristophe Bustos [id number] Daxabechristophe Catalanta Notes Date Note Type Note Provider Name and Address Organization Details Recorded Time 08/30/2023 text/html Pt is here for f /u on her annual labs. Doing overall better. Denies any problem with meds. Denies any new concern. Pt has not gone for PT or pain clinic yet. C/o b/l knees pain for last few yrs and she is not able to do regular exercise due to that. C/o lower back pain with b/l LE radiation ++. Going on for last few yrs, but for last couple weeks, its hurting her more. Pt still continues to do hard work in her [employer]. Denies any incontinence. She is also f/u with a Chiropractor for chronic back pain. Pt was referred to Pain clinic for this in the past; but she has never seen anyone yet.Pt is f/u with Endo every 3-4 months and is getting labs and other testing with them.Since last visit, pt has seen Hand surgeon for her Lt hand pain and got steroid shot with him and it helped her for about 2-3 months.Pt has seen Endo for her RUQ discomfort and had US and NM scan done with her. Pt says she has intermittent RUQ pain and nausea/vomiting every few months. Denies any of those symptoms currently.Pt says her headaches are also improved compared to last visit. No vision problems.Pt doesn't have BP and DM log with her, but it's much improved as per pt. Spike Garcia MD [address] [facility] [address], [place], [address], [place] [facility] 08/30/2023 09:45:53 12/01/2023 text/html Pt is here for f /u on her labs and chronic conditions. Doing overall better. Denies any problem with meds. Denies any new concern. Pt did PT and her pain got better. So she wants to do another round for it. Pt has not gone for pain clinic yet. C/o b/l knees pain for last few yrs and she is not able to do regular exercise due to that. C/o lower back pain with b/l LE radiation ++. Going on for last few yrs, but for last couple weeks, its hurting her more. Pt still continues to do hard work in her [employer]. Denies any incontinence. She is also f/u with a Chiropractor for chronic back pain. Pt was referred to Pain clinic for this in the past; but she has never seen anyone yet.Pt is f/u with Endo every 3-4 months and is getting labs and other testing with them.Since last visit, pt has seen Hand surgeon for her Lt hand pain and got steroid shot with him and it helped her for about 2-3 months.Pt has seen Endo for her RUQ discomfort and had US and NM scan done with her. Pt says she has intermittent RUQ pain and nausea/vomiting every few months. Denies any of those symptoms currently.Pt says her headaches are also improved compared to last visit. No vision problems.Pt doesn't have BP and DM log with her, but it's much improved as per pt. Spike Garcia MD [address] [place] [address], [place] [address], [place], [address], [facility] [employer] [facility] 12/01/2023 09:54:00 06/20/2024 text/html Pt is here with her for f/u on her meds and chronic conditions. Doing overall better. Denies any problem with meds. Denies any new concern. Still c/o lot of lower back pain and she is f/u with Chiropractor and PT for it. Pt wants to see a Cardio for her intermittent chest pain. Denies any chest pain in the office. Pt was referred to Pain clinic for this in the past; but she has never seen anyone yet.Pt is f/u with Endo at [facility] every 3-4 months and is getting labs and other testing with them.Pt has seen Hand surgeon for her Lt hand pain and got steroid shot with him and it helped her for about 2-3 months.Pt has seen Endo for her RUQ discomfort and had US and NM scan done with her. Pt says she has intermittent RUQ pain and nausea/vomiting every few months. Denies any of those symptoms currently.Pt says her headaches are also improved compared to last visit. No vision problems.Pt doesn't have BP and DM log with her, but it's much improved as per pt. Spike Garcia MD [address], [address], [place], [address], [facility] 06/20/2024 10:00:01 08/15/2024 text/html Pt is here with her for her annual exam. Doing overall better. Denies any problem with meds. Denies any new concern. Still c/o lot of lower back pain and she is f/u with Chiropractor and PT for it. Pt is f/u with Cardio for her intermittent chest pain and got testing done with him. Pt will be getting more testing done with them. Pt was referred to Pain clinic for this in the past; but she has never seen anyone yet.Pt is f/u with Endo at [facility] every 3-4 months and is getting labs and other testing with them.Pt has seen Hand surgeon for her Lt hand pain and got steroid shot with him and it helped her for about 2-3 months.Pt has seen Endo for her RUQ discomfort and had US and NM scan done with her. Pt says she has intermittent RUQ pain and nausea/vomiting every few months. Denies any of those symptoms currently.Pt says her headaches are also improved compared to last visit. No vision problems.Pt doesn't have BP and DM log with her, but it's much improved as per pt. Spike Garcia MD [address], [facility] [address], [place], [address], [facility] 08/15/2024 11:58:30 08/23/2024 text/html Pt is here for with her for f/u on her annual labs. Doing overall better. Denies any problem with meds. Denies any new concern. Pt is going to [facility] for 2.5 months. Still c/o lot of lower back pain and she is f/u with Chiropractor and PT for it. Pt is f/u with Cardio for her intermittent chest pain and got more testing done with them. Pt was referred to Pain clinic for this in the past; but she has never seen anyone yet.Pt is f/u with Endo at [facility] every 3-4 months and is getting labs and other testing with them.Pt has seen Hand surgeon for her Lt hand pain and got steroid shot with him and it helped her for about 2-3 months.Pt has seen Endo for her RUQ discomfort and had US and NM scan done with her. Pt says she has intermittent RUQ pain and nausea/vomiting every few months. Denies any of those symptoms currently.Pt says her headaches are also improved compared to last visit. No vision problems.Pt doesn't have BP and DM log with her, but it's much improved as per pt. Spike Garcia MD [address] [facility], [facility] [address], [place], [address], [facility] 08/23/2024 10:38:48 OBGyn Episode No OBEpisode recorded.
[2024-12-06 14:17] VITALS: BP 136/87; PULSE 88; RESP 14; O2SAT 98
--- OUTSIDE RECORDS SUMMARY | 2024-12-06 15:01 | XMS_ITS | CONTINUITY OF CARE DOCUMENT ---
Author Name jose garcia Address Unknown Organization [facility] Address [address] [place] [address] Phone [phone] Care Team Providers Care Fire Coordinator Name Role Phone Bianca LOWE, Berry Unavailable MAGDALENA GREENE MD Unavailable PROBLEMS Condition Status Date Provider Notes Vitamin D deficiency active Berry Baldwin B12 deficiency active Berry Valenzuela MD IRON DEFICIENCY active Berry Valenzuela MD Diastolic CHF active Berry Valenzuela MD HOCM; active Berry Valenzuela MD [...] In-person encounter Office Visit Berry Valenzuela MD [place] [facility] 06/29 - 06/29 In-person encounter Office Visit Berry Valenzuela MD [place] [facility] ScreeningOsteoporosisHypothyroidismHYPER TENSIONHyper lipidemiaDiabetes mellitus, type 2Chest pain-type to be determined VITAL SIGNS Date Observation Value Provider Body Mass Index (Ratio) 24.91 kg/m2 Malena Valenzuela MD blood pressure, cuff size regular Hitesh penn Beckman blood pressure, diastolic 74 mm[Hg] Hitesh penn Beckman blood pressure, systolic 143 mm[Hg] Jennifer sheets Beckman oxygen saturation, oximetry 98 % [facility] pulse rate 84 /min [facility]man weight E&M 136.2 [lb_av] [facility] Beckman height E&M 62 [in_i] [facility] Beckman weight E&M 139 [lb_av] Anne Mcclellan [...] Vale Burks oxygen saturation, oximetry 99 % Vale Burks respiratory rate E&M 16 /min Vale [...] 1 Absolute Neutrophil count 3759 cells/mcL [employer] [id number] Normal 1 mean platelet volume 10.4 fL [...] 1 tablet by mouth once a day [facility] hydrochlorothiazide 25 mg tablet completed - Berry Valenzuela MD atorvastatin 10 mg tablet active Take 1 tablet by mouth every evening Vale Burks SOCIAL HISTORY Date Observation Value Provider personal [facility] of [facility] drug use no [facility] alcohol use no [facility] smoking status Never smoker [facility] Never smoker Berry Valenzuela MD appendectomy, history of Appendectomy, Hx of Berry Valenzuela MD INSURANCE PROVIDERS Payer name Policy type / Coverage type [place] [employer] party ID [employer] MEDICA[employer] Medicaid [id number] ADVANCE DIRECTIVES Name Date DISCUSSED - NO [...] Ml (18 Mg/3 Ml) Pen Injector (Liraglutide) [place] Mckayla [facility] Cardiology:continues to have episodes of chest pain [...] swallow 1 tablet by mouth every day [facility] Cardiology:will upda te lipid panel H er updated medication list for this problem includes: Atorvastatin 10 Mg Tablet (Atorvastatin) ..... Take 1 tablet by mouth every evening [facility] Cardiology:BP slight ly above goal W [...] swallow 1 tablet by mouth every day [facility] Cardiology:Noted on recent echo W ill [...] swallow 1 tablet by mouth every day [facility] :neg stress Berry Valenzuela MD :ef 76 [...]
--- OUTSIDE RECORDS SUMMARY | 2024-12-06 15:01 | XMS_ITS | Clinical Summary ---
Author Organization [facility] Address [address] [place] [id number] Care Team Providers Care Remote Sensing Program Manager Name Role Phone Estefanía Edwards MD Primary [...] complete this topic Insurance [employer] Care Teams Remote Sensing Program Manager Relationship Specialty Start Date End Date Estefanía Edwards MD [address] [place] [address] [place] [address] PCP - General 02/26/17
== END 2024-12-06 14:20 | disposition home or self-care (01) ==
LOC: ANHED 13:26
PROVIDERS: Emergency Provider Student in an Organized Health Care Education/Training Program; PCP Family Medicine
DX: M54.50 Low back pain, unspecified (principal); G89.29 Other chronic pain; M47.816 Spondylosis without myelopathy or radiculopathy, lumbar region; I10 Essential (primary) hypertension; E03.9 Hypothyroidism, unspecified; E78.5 Hyperlipidemia, unspecified; E11.9 Type 2 diabetes mellitus without complications; Z79.85 Long-term (current) use of injectable non-insulin antidiabetic drugs; Z79.4 Long term (current) use of insulin; Z79.899 Other long term (current) drug therapy
CPT/HCPCS: 96372; 99284; J1100; J1171

== ENCOUNTER 2025-01-24 07:55 | Outpatient (CLI) | payer OTHER, SELFPAY ==
--- NOTE | ~2025-01-24 | MM_ITS ---
EXAMINATION: MM screening camilla BI w addi HISTORY: Screening TECHNIQUE: Craniocaudal and mediolateral oblique 3-D tomosynthesis images were obtained and synthetic 2-D images were generated. CAD analysis was submitted and interpreted. COMPARISON: Comparison to multiple prior studies sequentially, with oldest reviewed study dated 04/14. BREAST PARENCHYMAL COMPOSITION: Not dense: There are scattered areas of fibroglandular density. FINDINGS: There is a mass superiorly in the left breast, posterior third overlying the pectoralis mus adrian which is dilated seen on prior examinations, possibly due to differences of technique. The right breast is stable without evidence for malignancy. IMPRESSION: 1. New left breast mass located superiorly, posterior third. 2. Additional mammographic views and possible breast ultrasound are recommended. BI-RADS Category 0: Incomplete: Needs additional imaging evaluation. Reviewed, dictated and finalized at location A. IMPRESSION: 1. New left breast mass located superiorly, posterior third. 2. Additional mammographic views and possible breast ultrasound are recommended . BI-RADS Category 0: Incomplete: Needs additional imaging evaluation.
--- OUTSIDE RECORDS SUMMARY | 2025-01-24 07:59 | XMS_ITS | Clinical Summary ---
Author Organization [facility] Address [address] [place] [address] Care Team Providers Care Construction Rep Name Role Phone Estefanía Edwards MD Primary [...] Screening with HPV 1991 Mammogram Screening 2001 Pneumococcal Vaccine: 50+ Ye ars (1 of 1 - PCV) 2011 Zoster Vaccines (1 of 2) 2011 COVID-19 Vaccine (2023-2 5 season) 2024 RSV Immunization or 60+ Years (1 [...] patient's age to complete this topic Insurance [employer] Care Teams Construction Rep Relationship Specialty Start Date End Date Estefanía Edwards MD [address] [place] [address] [place] [address] PCP - General 02/26/17
--- OUTSIDE RECORDS SUMMARY | 2025-01-24 07:59 | XMS_ITS | CONTINUITY OF CARE DOCUMENT ---
Author Name jose garcia Address Unknown Organization [facility] Address [address] [place] [address] Phone [phone] Care Team Providers Care Integration Analyst Name Role Phone Bianca LOWE, Berry Unavailable [phone] MAGDALENA GREENE MD Unavailable PROBLEMS Condition Status Date Provider Notes Vitamin D deficiency active Berry Baldwin B12 deficiency active Berry Valenzuela MD IRON DEFICIENCY active Berry Valenzuela MD Diastolic CHF active Berry Valenzuela MD HOCM; active Berry Valenzuela MD Valvular heart disease active Berry Valenzuela MD Screening active Brery Valenzuela MD Osteoporosis active Berry Valenzuela MD Hypothyroidism active Berry Valenzuela MD HYPERTENSION active Berry Valenzuela MD Hyperlipidemia active Berry Valenzuela MD Diabetes mellitus, type 2 active Berry camarena MD CAD active Berry Valenzuela MD scoire 8 82, neg nuc ENCOUNTERS Date Type Provider Location Encounter Diag nosis 08/09 - 08/09 In-person encounter Office Visit Berry Valenzuela MD [place] [facility] 06/29 - 06/29 In-person encounter Office Visit Berry Valenzuela MD [place] [facility] ScreeningOsteoporosisHypothyroidismHYPER TENSIONHyper lipidemiaDiabetes mellitus, type 2CAD VITAL SIGNS Date Observation Value Provider Body Mass Index (Ratio) 24.91 kg/m2 Malena Valenzuela MD blood pressure, cuff size regular Hitesh penn Beckman blood pressure, diastolic 74 mm[Hg] Hitesh fili Beckman blood pressure, systolic 143 mm[Hg] Jennifer sheets Beckman oxygen saturation, oximetry 98 % [facility] pulse rate 84 /min [facility] weight E&M 136.2 [lb_av] [facility] height E&M 62 [in_i] [facility] weight E&M 139 [lb_av] Anne Mcclellan Body Mass Index (Ratio) 25.42 kg/m2 Malena Valenzuela MD blood pressure, diastolic 84 mm[Hg] Li [employer]kLogic blood pressure, systolic 147 mm[Hg] Jesi kLogic blood pressure, cuff size regular Darnell conte Burks blood pressure, diastolic 84 mm[Hg] Ta dg Burks blood pressure, systolic 147 mm[Hg] Tab [...] 1 Absolute Neutrophil count 3759 cells/mcL [employer] [id number] Normal 1 mean platelet volume 10.4 fL [...] 1 CAPSULE BY MOUTH EVERY WEEK Anita Vázquezmimulu TERRYP meloxicam 7.5 mg tablet active Berry [...] Provider personal history of marijuana use no [facility] drug use no [facility] alcohol use [facility] smoking status Never smoker [facility] smoking status Never smoker Berry Valenzuela MD appendectomy, history of Appendectomy, Hx of Berry Valenzuela MD INSURANCE PROVIDERS Payer name Policy type / Coverage type [place] [employer] party ID [employer] MEDICA[employer] Medicaid [id number] ADVANCE DIRECTIVES Name Date DISCUSSED - NO [...] Ml (18 Mg/3 Ml) Pen Injector (Liraglutide) [place] Mckayla [facility] Cardiology:continues to have episodes of chest [...] swallow 1 tablet by mouth every day [facility] :neg stress Berry Valenzuela MD :ef [...] Procedure Name Provider Procedure Notes S tatus CT- Coronary CA score Berry Valenzuela MD completed EKG Berry Valenzuela MD complete d
--- OUTSIDE RECORDS SUMMARY | 2025-01-24 08:00 | XMS_ITS ---
[...] (half unit) 0.3 mL 31 gauge x 16 11/04 completed Not Available Not Available Not [...] TRUEplus Insulin 0.5 mL 31 gauge x 5/16 syringe USE DIRECTED active Not Available Not [...] Inject 10 units every bedtime 02/05 completed finsi 1 month of sample then change to [...] Available No t Available [employer] Juan 3 [place] active Not Available Not Available Not Available Vitals Date Recorded Body height Body mass index (BMI) Body weight Body temperature Oxygen saturation Oxygen saturation in Arterial blood by Pulse oximetry Systolic blood pressure Diastolic blood pressure Provider Name and Address Organization Details Last Updated DateTime 3 154.94 cm 26.1 kg/m2 51034.8 g 98.1 [degF] 98 % 98 % 140 mm[Hg] 82 mm[Hg] Hernando Ellis [facility] [employer] 3 09:29:21 Date Recorded Heart rate Provider Name an d Address Organization Details Last Updated DateTime 08/30/2023 94 /min Anthony Scott [address] [facility] [address], [place], [address], [place] [employer] [facility] [employer] 08/30/2023 09:45:03 Date Recorded Body height Body mass index (BMI) Body weight Body temperature Heart rate Respiratory rate Oxygen saturation Oxygen saturation in Arterial blood by Pulse oximetry Pain severity - 0-10 verbal numeric rating [Score] - Reported Systolic blood pressure Diastolic blood pressure Provider Name and Address Organization Details Last Updated DateTime 4 154.94 cm 25.6 kg/m2 86405.7 2 g 96.6 [degF] 89 /min 20 /min 99 % 99 % 0 128 mm[Hg] 68 mm[Hg] Shana Bills RN [place] [facility] [employer] 4 09:30:04 Date Recorded Body height Body mass index (BMI) Body weight Body temperature Heart rate Respiratory rate Oxygen saturation Oxygen saturation in Arterial blood by Pulse oximetry Systolic blood pressure Diastolic blood pressure Provider Name and Address Organization Details Last Updated DateTime 4 154.94 cm 26.1 kg/m2 77162.4 5 g 98 [degF] 82 /min 16 /min 98 % 98 % 118 mm[Hg] 72 mm[Hg] Hernando Ellis [facility] [employer] [facility] 4 09:11:19 Date Recorded Body height Body mass index (BMI) Body weight Body temperature Heart rate Oxygen saturation Oxygen saturation in Arterial blood by Pulse oximetry Systolic blood pressure Diastolic blood pressure Provider Name and Address Organization Details Last Updated DateTime 4 154.94 cm 25.8 kg/m2 99173.3 1 g 98.1 [degF] 75 /min 99 % 99 % 128 mm[Hg] 72 mm[Hg] Tanya Painter RN [facility] [employer] [facility] 4 09:32:31 Date Recorded Body height Body mass index (BMI) Body weight Body temperature Heart rate Oxygen saturation Oxygen saturation in Arterial blood by Pulse oximetry Systolic blood pressure Diastolic blood pressure Provider Name and Address Organization Details Last Updated DateTime 4 154.94 cm 25.6 kg/m2 43558.1 3 g 97.2 [degF] 89 /min 99 % 99 % 134 mm[Hg] 60 mm[Hg] Enid Schaefer RN [facility] [employer] [facility] 4 10:26:01 Social History Question Answer Notes LastModified by Organizat ion Details LastModified Time Tobacco Smoking Status Never Smoker Not Available [employer] 11/25/2022 04:07:19 Do You Have An Advance Directive? No [id number].[id number] Information not available 11/25/2022 Do You Wear A Helmet When Biking? No MIGRATION.094444 5689 Information not available 11/25/2022 What Is Your Level Of Caffeine Consumption? Moderate MIGRATION.751325 6534 Information not available 11/25/2022 In The 14 Days Before Symptom Onset, Have You Had Close Contact With A Laboratory-confirm ed COVID-19 While That Case Was Ill? No MIGRATION.162436 9499 Information not available 11/25/2022 In The 14 Days Before Symptom Onset, Have You Had Close Contact With A Person Who Is Under Investigation For COVID-19 While That Person Was Ill? No MIGRATION.036914 7955 Information not available 11/25/2022 What Type Of Diet Are You Following? 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 No MIGRATION.597387 7420 Information not available 11/25/2022 Do You Use Insect Repellent Routinely? Yes MIGRATION.805423 5224 Information not available 11/25/2022 Do You Have A Medical Power Of Mouse Breeder? No MIGRATION.803799 4033 Information not available 11/25/2022 Do You Have Any Pets? No MIGRATION.824250 8496 Information not available 11/25/2022 What Is Your Relationship Status? MIGRATION.531035 7452 Information not available 11/25/2022 Do You Use Your Seat Belt Or Car Seat Routinely? Yes MIGRATION.510187 0747 Information not available 11/25/2022 Do You Have Smoke And Carbon Monoxide Detectors In Your Home? Yes MIGRATION.801164 1845 Information not available 11/25/2022 Are There Any Smokers In Your House? No MIGRATION.566634 4857 Information not available 11/25/2022 Do You Participate In Social Media? No MIGRATION.745995 1774 Information not available 11/25/2022 Do You Feel Stressed (tense, Restless, Nervous, Or Anxious, Or Unable To Sleep At Night)? [id number] Pain MIGRATION.748212 3756 Information not available 11/25/2022 Do You Use Any Illicit Or Recreational Drugs? No MIGRATION.058428 2686 Information not available 11/25/2022 Do You Use Sunscreen Routinely? Yes MIGRATION.095718 4797 Information not available 11/25/2022 Has Tobacco Cessation Counseling Been Provided? No MIGRATION.564205 4416 Information not available 11/25/2022 Have You Recently Traveled Abroad? No MIGRATION.543836 9168 Information not available 11/25/2022 Do You Have Any Dietary Restrictions? No MIGRATION.690293 4199 Information not available 11/25/2022 Do You Or Have You Ever Used Any Other Forms Of Tobacco Or Nicotine? No MIGRATION.568672 6249 Information not available 11/25/2022 Sex: Female Functional Status Question Answer Note LastModified by Organizat ion Details LastModified Time What is your exercise level? None MIGRATION.[id number] Information not available 11/25/2022 Mental Status None recorded. Family History Relationship Description Onset Age of this Age Resolved Age Notes LastModified by Organization Details LastModified Time Unspecified Relation Diabetes mellitus [id number].[id number] Not available 11/25/2022 04:42:11 Unspecified Relation Hypertensive disorder MIGRATION.120 [id number] Not available 11/25/2022 04:42:11 Medical History Condition Response BLINDNESS N RHEUMATIC FEVER N KIDNEY STONES N BLADDER PROBLEMS N MRSA N OTHER # 1 N POLIO N LUNG DISEASE/DISORDER N RADIATION / CHEMOTHERAPY N COPD N Other # 2 N BLOOD DISEASES N SURGERY N EAR OR HEARING PROBLEMS N MUMPS N FEMALE PROBLEMS / INFECTIONS N DEPRESSION (INCLUDING POST ) N BOWEL PROBLEMS N STROKE/TIA N THYROID DISEASE N ULCERS [...] N EDEMA N CHRONIC PAIN SYNDROME N CAROTID BLOCKAGE N CONSTIPATION N BACK / NECK PROBLEMS Y HAVE YOU BEEN HOSPITALIZED OR SEEN IN [facility] IN THE PAST YEAR ? N [...] Influenza, split virus, quadrivalent, PF 3 completed TYRA Beaulieu [employer] 06/14/2023 09:14:11 COVID-19, mRNA, LNP-S, PF, 100 mcg/0.5mL dose or 50 mcg/0.25mL dose 1 completed Not Available [facility] 11/25/2022 05:02:30 COVID-19, mRNA, LNP-S, PF, 100 mcg/0.5mL dose or 50 mcg/0.25mL dose 1 completed Not Available [facility] 11/25/2022 05:02:30 Influenza, split virus, quadrivalent, PF 9 completed Not Available [facility] 11/25/2022 05:02:30 Influenza, split virus, quadrivalent, PF 7 completed Not Available [facility] 11/25/2022 05:02:30 Influenza, split virus, quadrivalent, PF 2 completed Not Available [facility] 11/25/2022 05:02:30 Influenza, split virus, quadrivalent, PF 1 completed Not Available [facility] 11/25/2022 05:02:30 Influenza, split virus, quadrivalent, PF 0 completed Not Available [facility] 11/25/2022 05:02:30 Influenza, split virus, quadrivalent, preservative 6 completed Not Available [facility] 11/25/2022 05:02:30 Influenza, split virus, quadrivalent, PF 5 completed Not Available [facility] 11/25/2022 05:02:31 Influenza, split virus, trivalent, PF 4 completed TYRA Beaulieu [facility] 06/20/2024 10:32:55 Past Encounters Encounter ID Performer Location Encounter Start Date Encounter Closed Date Diagnosis/Indication Diagnosis SNOMED-CT Code Diagnosis ICD10 Code Diagnosis Note [id number] S[facility] [place] [address] [place] [address] 01/20/2021 00:00:00 01/20/2021 10:30:53 [id number] [facility] [address] [place] [address] 04/21/2021 00:00:00 04/21/2021 09:47:05 [id number] [facility] [place] [address] [place] [address] 04/22/2021 00:00:00 05/02/2021 13:46:[id number] [place] [address] [place] [address] 06/13/2021 00:00:00 06/13/2021 10:01:31 [id number] [facility] [place] [address] [place] [address] 07/22/2021 00:00:00 07/22/2021 10:14:[id number] [place] [address] [place] [address] 07/31/2021 00:00:00 07/31/2021 10:09:45 [id number] [facility] [address] [place] [address] 08/14/2021 00:00:00 08/14/2021 09:33:58 [id number] S_GMG [address] [address] 10/13/2021 00:00:00 10/13/2021 15:15:58 [id number] [facility] [place] [address] [place] [address] 11/03/2021 00:00:00 11/03/2021 10:47:09 [id number] [facility] [place] [address] [place] [address] 12/04/2021 00:00:00 12/04/2021 09:46:31 [id number] [facility] [place] [address] [place] [address] 03/02/2022 00:00:00 03/02/2022 09:59:50 [id number] [facility] [place] [address] [place] [address] 03/05/2022 00:00:00 03/05/2022 09:14:17 [id number] [facility] [place] [address] [place] [address] 06/04/2022 00:00:00 06/04/2022 09:36:39 [id number] [facility] [place] [address] [place] [address] 06/26/2022 00:00:00 06/26/2022 11:03:47 [id number] [facility] [place] [address] [place] [address] 08/06/2022 00:00:00 08/06/2022 10:26:14 [id number] [facility] [place] [address] [place] [address] 09/09/2022 00:00:00 09/09/2022 17:00:38 [id number] Spike Garcia MD [facility] [address] [place] [address] 12/24/2022 15:24:26 12/24/2022 15:49:57 Type 2 diabetes mellitus without complication 841757750 E11.9 Neuropathy 846007014 G62 .9 Hypothyroidism 23982546 E03.9 Hypertensive disorder 38 630905 I10 Hyperlipidemia 74705810 E78.5 Chronic low back pain 27 3360878 M54.50 Anemia 711070987 D64.9 Vitamin D deficiency 347 80313 E55.9 Osteoporosis 24103797 M8 1.0 [id number] Kiara Kolb MD [facility] [address] [place] [address] 01/18/2023 10:50:16 01/18/2023 11:24:22 Latent autoimmune diabetes mellitus in adult 094082962 E13.9 a1c of 6.9% in ideal range- [...] patient tolerating well- weight stable. 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 Dyslipidemia 275703719 E 78.5 continue statin therapy. Spent up [...] she chooses to go outside of the [facility] to obtain labwork she was [...] in her case. She voiced understand ing. [id number] Spike Garcia MD [address] [address] 02/15/2023 09:32:29 02/15/2023 10:45:23 Chronic low back pain 342395573 M54.50 Type 2 brisa betes mellitus without complication 231344489 E11.9 Neuropathy 649279385 G62 .9 Hypothyroidism 38798541 E03.9 Hypertensive disorder 38 640102 I10 Hyperlipidemia 38176349 E78.5 Anemia 097764773 D64.9 Vitamin D deficiency 347 08951 E55.9 Osteoporosis 09751339 M8 1.0 [id number] Spike Garcia MD [address] [address] 04/08/2023 08:49:25 04/08/2023 09:21:18 Chronic low back pain 035690095 M54.50 Type 2 brisa betes mellitus without complication 561621286 E11.9 Neuropathy 417511855 G62 .9 Hypothyroidism 17159818 E03.9 Hypertensive disorder 38 938384 I10 Hyperlipidemia 27632046 E78.5 Anemia 195545038 D64.9 Vitamin D deficiency 347 72251 E55.9 Osteoporosis 53557948 M8 1.0 Screening mammography 24 607271 Z12.31 Overweight 785555166 E66 .3 Pain of bi lateral knee joints 6105645522 97662 M25.693 [id number] Kiara Kolb MD [facility] [place] [address] [place] [address] 06/01/2023 09:57:00 06/01/2023 11:25:03 Latent autoimmune diabetes mellitus in adult 341968371 E13.9 a1c of 6.8% in ideal range- [...] for GVoke for hypoglycem ia rescue. Hyperlipidemia 47428977 E78.5 Continue statin therapy as LDL in range. Hypothyroidism 32300014 E03.9 FT4 in ideal range- continue LT4 [...] answered and refills necessary at visit today. [id number] Spike Garcia MD [address] [address] 06/09/2023 08:47:27 06/09/2023 09:18:25 Chronic low back pain 116116774 M54.50 Type 2 brisa betes mellitus without complication 540162340 E11.9 Neuropathy 278240960 G62 .9 Hypothyroidism 38109627 E03.9 Hypertensive disorder 38 226355 I10 Hyperlipidemia 61590627 E78.5 Anemia 479393392 D64.9 Vitamin D deficiency 347 02233 E55.9 Osteoporosis 27293668 M8 1.0 Overweight 968016332 E66 .3 Pain of bi lateral knee joints 1858934642 14290 M25.562 Administra tion of influenza vaccine 40690436 Z23 [id number] Spike Garcia MD [address] [address] 08/12/2023 08:46:03 08/12/2023 09:28:50 Chronic low back pain 253029078 M54.50 Type 2 brisa betes mellitus without complication 802676764 E11.9 Neuropathy 842387054 G62 .9 Hypothyroidism 72303462 E03.9 Hypertensive disorder 38 249330 I10 Hyperlipidemia 02555677 E78.5 Anemia 193089720 D64.9 Vitamin D deficiency 347 20926 E55.9 Osteoporosis 44346668 M8 1.0 Overweight 267854060 E66 .3 Pain of bi lateral knee joints 1641146432 13019 M25.562 Adult heal th examination 215485923 Z00.00 [id number] Spike Garcia MD [address] [address] 08/30/2023 09:23:51 08/30/2023 09:56:49 Type 2 diabetes mellitus without complication 073401665 E11.9 Chronic low back pain 27 1435741 M54.50 Neuropathy 218097731 G62 .9 Hypothyroidism 21189669 E03.9 Hypertensive disorder 38 233858 I10 Hyperlipidemia 40127728 E78.5 Anemia 010508662 D64.9 Vitamin D deficiency 347 10895 E55.9 Osteoporosis 86246589 M8 1.0 Overweight 233493289 E66 .3 Pain of bi lateral knee joints 2962390058 51630 M25.960 [id number] Spike Garcia MD [address] [address] 12/01/2023 09:22:53 12/01/2023 09:56:42 Type 2 diabetes mellitus without complication 584294604 E11.9 Chronic low back pain 27 5000018 M54.50 Neuropathy 055162678 G62 .9 Hypothyroidism 83811360 E03.9 Hypertensive disorder 38 113083 I10 Hyperlipidemia 59739271 E78.5 Anemia 264265652 D64.9 Pain of bi lateral knee joints 1547293985 29484 M25.562 Chronic Osteoporosis 52217800 M8 1.0 Overweight 133854930 E66 .3 [id number] Spike Garcia MD [address] [address] 06/20/2024 09:01:57 06/20/2024 09:34:38 Type 2 diabetes mellitus without complication 314602205 E11.9 Chronic low back pain 27 6061748 M54.50 Neuropathy 465991572 G62 .9 Hypothyroidism 29545761 E03.9 Hypertensive disorder 38 195432 I10 Hyperlipidemia 88432834 E78.5 Anemia 959388787 D64.9 Pain of bi lateral knee joints 7020386642 56564 M25.562 Chronic Osteoporosis 17440733 M8 1.0 Overweight 957125240 E66 .3 Chronic back pain 090174 002 G89.29 Chronic chest pain 79749 03514 59058 R07.9 Administra tion of influenza vaccine 17625610 Z23 [id number] Spike Garcia MD [address] [address] 08/15/2024 09:25:15 08/15/2024 12:13:44 Chronic low back pain 545462648 M54.50 Type 2 brisa betes mellitus without complication 535247772 E11.9 Neuropathy 513103775 G62 .9 Hypothyroidism 33389239 E03.9 Hypertensive disorder 38 743380 I10 Hyperlipidemia 52940083 E78.5 Anemia 653048772 D64.9 Pain of bi lateral knee joints 9626415391 46396 M25.562 Chronic Osteoporosis 50752723 M8 1.0 Overweight 012946289 E66 .3 Chronic back pain 184891 002 G89.29 Adult [facility] examination 505325310 Z00.00 [id number] Spike Garcia MD [address] [address] 08/23/2024 10:19:05 08/23/2024 10:43:29 Chronic low back pain 264430946 M54.50 Type 2 brisa betes mellitus without complication 943182186 E11.9 Neuropathy 710928101 G62 .9 Hypothyroidism 72345420 E03.9 Hypertensive disorder 38 636653 I10 Hyperlipidemia 90227600 E78.5 Anemia 030457132 D64.9 Pain of bi lateral knee joints 0129568341 52675 M25.562 Chronic Osteoporosis 92642019 M8 1.0 Health Concerns Section Related Observation LastModified by Organization Detai ls LastModified Time None Recorded Concern Status LastModified by Organization Details LastModified Time None Recorded Advance Directives Directive N: Payers Encounter Date Sequence Insurance Name Policy Number Policy Pedroza Covered Member ID Pedroza Member ID Guarantor Name 08/30/2023 1 [facility] (MEDICAID HMO) [id number] Daxaben Bustos [id number] Daxaben S Bustos 12/01/2023 1 [facility] (MEDICAID HMO) [id number] Daxaben Bustos [id number] Daxaben S Bustos 06/20/2024 1 [facility] (MEDICAID HMO) [id number] Daxaben Bustos [id number] Daxaben S Bustos 08/15/2024 1 [facility] (MEDICAID HMO) [id number] Daxaben Bustos [id number] Daxaben S Bustos 08/23/2024 1 [facility] (MEDICAID HMO) [id number] Daxaben Bustos [id number] Daxaben S Bustos Notes Date Note Type Note Provider Name [...] as per pt. Spike Garcia MD [address] [facility] [address], [place], [address], [facility] [employer] 08/30/2023 09:45:53 12/01/2023 text/html Pt is here [...] as per pt. Spike Garcia MD [address] [facility] [address], [place], [address], [facility] [employer] [facility] [employer] 12/01/2023 09:54:00 06/20/2024 text/html Pt is here [...] anyone yet.Pt is f/u with Endo at [place] every 3-4 months and is getting labs [...] as per pt. Spike Garcia MD [address] [facility] [address], [place], [address], [facility] [employer] [facility] [employer] [facility] 06/20/2024 10:00:01 08/15/2024 text/html Pt is [...] anyone yet.Pt is f/u with Endo at [place] every 3-4 months and is getting labs [...] as per pt. Spike Garcia MD [address] [facility], [place], [address], [employer] 08/15/2024 11:58:30 08/23/2024 text/html Pt is here for with her for f/u on her annual labs. Doing overall better. Denies any problem with meds. Denies any new concern. Pt is going to [facility] for 2.5 months. Still c/o lot of lower back pain and she is f/u with Chiropractor and PT for it. Pt is f/u with Cardio for her intermittent chest pain and got more testing done with them. Pt was referred to Pain clinic for this in the past; but she has never seen anyone yet.Pt is f/u with Endo at [place] every 3-4 months and is getting labs [...] per pt. Spike Garcia MD [address], [place], [address], [facility] 08/23/2024 10:38:48 OBGyn Episode No OBEpisode recorded. Data Portability Created on: January 24, 2025 Esdras Bustos .[id number] : 1960 Sex: Female Author Organization [place] [facility] [employer], Main Office Address [address] [place] [address] Care Team Providers Care Doubler Helper Name Role Phone SPIKE GARCIA Primary Care Provider SPIKE GARCIA Referring Provider Assessment Encounter Date Assessment Date Assessment LastModified [...] 7.6(02/25/22) - 6.9(12/16/22) - 6.8(05/28/23) Annual labs: 08/12/23. CXR: 05/24/23. X-ray L-spine, [...] Endo as per schedule. Cont f/u with Breaking Machine Operator as per schedule. Cont f/u with Ophtho as per schedule. Offered to refer to Surg; but pt declined. jeffry Castellano are not covered under pt's insurance. HM: WWE - 06/13/21, normal. Cont f/u with MAC OPERATOR as per schedule. Mammo - 08/03/23, incomplete. Ordered. DEXA - 05/29/22, Osteopenia ++. H/o osteoporosis ++. Colonoscopy - 10/18, normal. Cont f/u with GI in 10 yrs as recommended. Flu - 06/09/23. Tdap, Shingrix - At HD/pharmacy. F/u in 3 months. A1c, CBC before next visit. Annual labs in 08/20. Not available 08/30/2023 09:45:29 12/01/2023 12/01/2023 63 [...] Endo as per schedule. Cont f/u with Breaking Machine Operator as per schedule. Cont f/u with Ophtho as per schedule. Offered to refer to Surg; but pt declined. Rufusjuannguyễn, viktorhomero are not covered under pt's insurance. HM: WWE - 06/13/21, normal. Cont f/u with MAC OPERATOR as per schedule. Mammo - 11/01/23, normal. DEXA - 05/29/22, Osteopenia ++. H/o osteoporosis ++. Colonoscopy - 10/18, normal. Cont f/u with GI in 10 yrs as recommended. Flu - 06/09/23. Tdap, Shingrix - At HD/pharmacy. F/u in 3 months. Annual labs in 08/20. [email or web address] Not available 12/01/2023 09:52:47 06/20/2024 06/20/2024 63 [...] Endo as per schedule. Cont f/u with Breaking Machine Operator as per schedule. Cont f/u with Ophtho as per schedule. Pt has done PT in the past. Offered to refer to Surg; but pt declined. Januvia, bydureon are not covered under pt's insurance. HM: WWE - 06/13/21, normal. Cont f/u with MAC OPERATOR as per schedule. Mammo - 11/01/23, normal. DEXA - 05/29/22, Osteopenia ++. H/o osteoporosis ++. Colonoscopy - 10/18, normal. Cont f/u with GI in 10 yrs as recommended. Flu - 06/20/24. Tdap, Shingrix - At HD/pharmacy. F/u in 2 months. Annual labs in 08/20. [email or web address] Not available 06/20/2024 09:59:51 08/15/2024 08/15/2024 63 [...] Endo as per schedule. Cont f/u with Breaking Machine Operator as per schedule. Cont f/u with Ophtho as per schedule. Pt has done PT in the past. Offered to refer to Surg; but pt declined. Januvia, bydureon are not covered under pt's insurance. HM: WWE - 06/13/21, normal. Cont f/u with MAC OPERATOR as per schedule. Mammo - 11/01/23, normal. DEXA - 03/09/24, Osteopenia ++. H/o osteoporosis ++. Colonoscopy - 10/18, normal. Cont f/u with GI in 10 yrs as recommended. Flu - 06/20/24. Tdap, Shingrix - At HD/pharmacy. F/u in 2-3 weeks. Annual labs in 08/21. [email or web address] Not available 08/15/2024 11:57:59 08/23/2024 08/23/2024 63 [...] Endo as per schedule. Cont f/u with Breaking Machine Operator as per schedule. Cont f/u with Ophtho as per schedule. Pt has done PT in the past. Offered to refer to Surg; but pt declined. jeffry Castellano are not covered under pt's insurance. HM: WWE - 06/13/21, normal. Cont f/u with MAC OPERATOR as per schedule. Mammo - 11/01/23, normal. DEXA - 03/09/24, Osteopenia ++. H/o osteoporosis ++. Colonoscopy - 10/18, normal. Cont f/u with GI in 10 yrs as recommended. Flu - 06/20/24. Tdap, Shingrix - At HD/pharmacy. F/u in 3-4 months. Annual labs in 08/21. [email or web address] Not available 08/23/2024 10:33:14 Plan of Treatment Reminders Order Date Submit Date Provider Last Modified By Organization Details Last Modified Time Details Appointments Follow Up 15 2024 08:00A M Spike Garcia MD Not available Not available Not available Lab vitamin B12 + folate, serum or blood 2023 024 [facility], [address], [place], [address], 08/17/2024 07:08:39 CBC w/ auto diff 2023 024 [facility], [address] , [place], [address], 08/17/2024 07:08:37 CMP, serum or plasma 2023 024 [employer] [place] [facility], [address], [place], [address], 08/17/2024 07:08:34 lipid panel, serum 2023 [employer] [place] [facility], [address] [facility], [place], [address], 08/17/2024 07:08:31 TSH, serum, reflex free T4 2023 [facility], [address] [facility], [place], [address], 08/29/2024 15:04:07 urinalysi s complete, reflex culture 2023 [employer] [place] [facility], [address], [place], [address], 08/17/2024 07:08:35 HbA1c (hemoglob in A1c), blood 2023 [email or web address] [place] [facility], [address], [place], [address], 08/17/2024 07:08:41 microalbu min/creat inine, mass ratio, urine 2023 024 [place] [facility], [address], [place], [address], 08/17/2024 07:08:32 magnesium , serum or plasma 2023 024 [facility], [address], [place], [address], 08/17/2024 07:08:33 vitamin D, 25-hydrox y, total, serum 2023 024 [facility], [address], [place], [address], 08/17/2024 07:08:40 CBC w/ auto diff 2022 023 [email or web address] [facility], [address], [place], [address], 11/05/2023 08:55:39 HbA1c (hemoglob in A1c), blood 2022 023 [email or web address] [facility], [address], [place], [address], 11/05/2023 08:55:39 Referral pain managemen t referral - Please call patient to schedule an appointme nt. Thank you. 2023 024 [email or web address] Becka Baca MD, [address] [facility] [address], [address], 07/18/2024 08:49:43 cardiolog ist referral - Please call patient to schedule an appointme nt with Dr. Mark Johnson. Thank you. 2023 024 [email or web address] [facility] Referral Fax Line, [address] [facility] [address], [place], [address], 07/18/2024 08:49:16 physical therapist referral 2023 [email or web address] [place] [address], [facility], [place], [address], 01/03/2024 09:40:14 Procedures None recorded. Surgeries None recorded. Imaging MRI, lumbar spine, w/o contrast - *Please call pt to schedule* 2023 024 [email or web address] [facility] (Imaging), [address] [facility] [address], [place], [address], 08/09/2024 17:45:24 Medication Orders baclofen 10 mg tablet 2023 [facility], [address] [place] [address], [address], 08/23/2024 10:31:09 meloxicam 7.5 mg tablet 2023 [facility] [address], [address] [place] [address], [id number], 08/23/2024 10:31:11 alendrona te 70 mg tablet 2023 [facility] [address], [address] [place] [address], [address], 08/23/2024 10:31:12 hydrochlo rothiazid e 25 mg tablet 2023 [facility] [address], [address] [place] [address], [id number], 08/23/2024 10:31:13 losartan 100 mg tablet 2023 [facility] [address], [address] [place] [address], [address], 08/23/2024 10:31:12 Tab-A-Vit e 400 mcg tablet 2023 [facility] [address], [address] [place] [address], [id number], 08/23/2024 10:31:11 ferrous sulfate 325 mg (65 mg iron) tablet 2023 [facility] [address], [address] [place] [address], [id number], 08/23/2024 10:31:13 atorvasta tin 10 mg tablet 2023 [facility] [address], [address] [place] [address], [id number], 08/23/2024 10:31:14 gabapenti n 600 mg tablet 2023 [facility], [address] [place], [address], 08/23/2024 10:31:11 baclofen 10 mg tablet 2023 [facility] [address], [address] [place] [address], [address], 08/15/2024 09:45:50 meloxicam 7.5 mg tablet 2023 [facility] [address], [address] [place] [address], [address], 08/15/2024 09:45:49 alendrona te 70 mg tablet 2023 [facility] [address], [address] [place] [address], [address], 08/15/2024 09:45:49 hydrochlo rothiazid e 25 mg tablet 2023 [facility] [address], [address] [place] [address], [address], 08/15/2024 09:45:51 losartan 100 mg tablet 2023 [facility] [address], [address] [place] [address], [address], 08/15/2024 09:45:49 atorvasta tin 10 mg tablet 2023 [facility] [address], [address] [place] [address], [address], 08/15/2024 09:45:50 Tab-A-Vit e 400 mcg tablet 2023 [facility] [address], [address] [place] [address], [id number], 08/15/2024 09:45:51 ferrous sulfate 325 mg (65 mg iron) tablet 2023 024 [facility], [address] [place], [address], 08/15/2024 09:45:46 Alcohol Prep Pads 2023 [facility] [address], [address] [place] [address], [address], 08/15/2024 09:45:48 gabapenti n 600 mg tablet 2023 [facility] [address], [address] [place] [address], [address], 08/15/2024 09:45:52 baclofen 10 mg tablet 2023 [facility] [address], [address] [place] [address], [address], 06/20/2024 09:20:39 meloxicam 7.5 mg tablet 2023 024 [facility] [address], [address] [place] [address], [address], 06/20/2024 09:20:38 alendrona te 70 mg tablet 2023 024 [facility] [address], [address] [place] [address], [id number], 06/20/2024 09:20:38 hydrochlo rothiazid e 25 mg tablet 2023 024 [facility] [address], [address] [place] [address], [id number], 06/20/2024 09:20:41 losartan 100 mg tablet 2023 024 [facility] [address], [address] [place] [address], [address], 06/20/2024 09:20:39 atorvasta tin 10 mg tablet 2023 024 [facility] [address], [address] [place] [address], [address], 06/20/2024 09:20:40 Tab-A-Vit e 400 mcg tablet 2023 024 [facility] [address], [address] [place] [address], [address], 06/20/2024 09:20:35 ferrous sulfate 325 mg (65 mg iron) tablet 2023 024 [facility] [address], [address] [place] [address], [address], 06/20/2024 09:20:35 Alcohol Prep Pads 2023 024 [facility] [address], [address] [place] [address], [address], 06/20/2024 09:20:34 gabapenti n 600 mg tablet 2023 024 [facility] [address], [address] [place] [address], [address], 06/20/2024 09:20:37 baclofen 10 mg tablet 2023 024 [facility] [address], [address] [place] [address], [address], 12/01/2023 09:35:26 meloxicam 7.5 mg tablet 2023 024 [facility] [address], [address] [place] [address], [address], 12/01/2023 09:35:25 alendrona te 70 mg tablet 2023 024 [facility] [address], [address] [place] [address], [address], 12/01/2023 09:35:21 hydrochlo rothiazid e 25 mg tablet 2023 024 [facility] [address], [address] [place] [address], [address], 12/01/2023 09:35:36 losartan 100 mg tablet 2023 024 [facility] [address], [address] [place] [address], [address], 12/01/2023 09:35:32 atorvasta tin 10 mg tablet 2023 024 [facility] [address], [address] [place] [address], [address], 12/01/2023 09:35:20 Tab-A-Vit e 400 mcg tablet 2023 024 [facility] [address], [address] [place] [address], [address], 12/01/2023 09:35:25 ferrous sulfate 325 mg (65 mg iron) tablet 2023 024 [facility] [address], [address] [place] [address], [address], 12/01/2023 09:35:35 Basaglar KwikPen U-100 Insulin 100 unit/mL (3 mL) subcutane ous 2023 024 [facility] [address], [address] [place] [address], [address], 12/01/2023 09:35:28 Admelog U-100 Insulin lispro 100 unit/mL subcutane ous solution 2023 024 [facility] [address], [address] [place] [address], [id number], 12/01/2023 09:35:35 Victoza 3-Miky 0.6 mg/0.1 mL (18 mg/3 mL) subcutane ous pen injector 2023 024 [facility] [address], [address] [place] [address], [address], 12/01/2023 09:35:35 Alcohol Prep Pads 2023 024 [facility] [address], [address] [place] [address], [address], 12/01/2023 09:35:34 levothyro xine 25 mcg tablet 2023 024 [facility] [address], [address] [place] [address], [address], 12/01/2023 09:35:19 gabapenti n 600 mg tablet 2023 024 [facility] [address], [address] [place] [address], [address], 12/01/2023 09:35:21 baclofen 10 mg tablet 2022 023 [facility] [address], [address] [place] [address], [address], 08/30/2023 09:37:39 meloxicam 7.5 mg tablet 2022 023 [facility] [address], [address] [place] [address], [address], 08/30/2023 09:37:36 alendrona te 70 mg tablet 2022 023 [facility] [address], [address] [place] [address], [address], 08/30/2023 09:37:44 hydrochlo rothiazid e 25 mg tablet 2022 023 [facility] [address], [address] [place] [address], [address], 08/30/2023 09:37:44 losartan 100 mg tablet 2022 023 [facility] [address], [address] [place] [address], [address], 08/30/2023 09:37:37 atorvasta tin 10 mg tablet 2022 023 [facility] [address], [address] [place], [address], 08/30/2023 09:57:18 Tab-A-Vit e 400 mcg tablet 2022 023 [facility] [address], [address] [place] [address], [address], 08/30/2023 09:37:39 ferrous sulfate 325 mg (65 mg iron) tablet 2022 023 [facility] [address], [address] [place] [address], [address], 08/30/2023 09:37:45 Basaglar KwikPen U-100 Insulin 100 unit/mL (3 mL) subcutane ous 2022 023 [facility] [address], [address] [place] [address], [address], 08/30/2023 09:37:32 Admelog U-100 Insulin lispro 100 unit/mL subcutane ous solution 2022 023 [facility], [address] [place], [address], 08/30/2023 09:57:20 Victoza 3-Miky 0.6 mg/0.1 mL (18 mg/3 mL) subcutane ous pen injector 2022 023 [facility] [address], [address] [place] [address], [address], 08/30/2023 09:37:37 Alcohol Prep Pads 2022 023 [facility] [address], [address] [place] [address], [address], 08/30/2023 09:37:42 levothyro xine 25 mcg tablet 2022 023 [facility] [address], [address] [place], [address], 08/30/2023 09:37:38 gabapenti n 600 mg tablet 2022 023 [facility] [address], [address] [place], [address], 08/30/2023 09:57:13 Patient TargetsNo targets recorded. Patient InstructionsNo instructions recorded. Reason for Referral Physical Therapist Referral for Chronic low back pain [facility]: 12/01/2023 Critical Care Nurse Referral for Ch ronic chest pain Please call patient to schedule an appointment with Dr. Mark Johnson. Thank you. [facility] Date: 06/20/2024 Pain Management Referral for Chronic low back pain Chronic low back pain Please call patient to schedule an appointment. Thank you. Referring Phys[facility] Date: 06/20/2024 Results Created Date Observation Date Name Description Value Unit Range Abnormal Flag Note LastModifiedBy Organization Detail LastModifiedTime 08/12/2008/12/2023 TEST NOT PERFO RMED test not performed SEE COMMEN T cbc, ha1c not perfo rmed. no edta recei jonnie in lab pleae colle c t purpl e edta Not Available [facility] (Lab) [address] [place], [address], 08/12/2023 14:07:11 08/12/20 23 08/12/2023 URINA LYSIS COMPL ETE/I RIS W/RFX color LIGHT- YELLOW Not Available [facility] (Lab) [address] [place], [address], 08/12/2023 14:19:58 08/12/20 23 08/12/2023 URINA LYSIS COMPL ETE/I RIS W/RFX appear CLEAR Not Available [facility] (Lab) [address] [place], [address], 08/12/2023 14:19:58 08/12/20 23 08/12/2023 URINA LYSIS COMPL ETE/I RIS W/RFX specific gravity 1.008 1.001- 1.030 Not Available [facility] (Lab) [address] [place], [address], 08/12/2023 14:19:58 08/12/20 23 08/12/2023 URINA LYSIS COMPL ETE/I RIS W/RFX pH 6.5 pH_un its 5.0-9. 0 Not Available [facility] (Lab) [address] [place], [address], 08/12/2023 14:19:58 08/12/20 23 08/12/2023 URINA LYSIS COMPL ETE/I RIS W/RFX leukocytes 250 shamika/u L negati ve- abnormal Not Available [facility] (Lab) [address] [place], [address], 08/12/2023 14:19:58 08/12/20 23 08/12/2023 URINA LYSIS COMPL ETE/I RIS W/RFX nitrite NEGATI VE negati ve- Not Available [facility] (Lab) [address] [place], [address], 08/12/2023 14:19:58 08/12/20 23 08/12/2023 URINA LYSIS COMPL ETE/I RIS W/RFX protein NEGATI VE mg/dL negati ve- Not Available [facility] (Lab) [address] [place], [address], 08/12/2023 14:19:58 08/12/20 23 08/12/2023 URINA LYSIS COMPL ETE/I RIS W/RFX glucose NORMAL mg/dL normal - Not Available [facility] (Lab) [address] [place], [address], 08/12/2023 14:19:58 08/12/20 23 08/12/2023 URINA LYSIS COMPL ETE/I RIS W/RFX ketones NEGATI VE mg/dL negati ve- Not Available [facility] (Lab) [address] [place], [address], 08/12/2023 14:19:58 08/12/20 23 08/12/2023 URINA LYSIS COMPL ETE/I RIS W/RFX urobilinogen NORMAL mg/dL normal - Not Available [facility] (Lab) [address] [place], [address], 08/12/2023 14:19:58 08/12/2008/12/2023 URINA LYSIS COMPL ETE/I RIS W/RFX bilirubin NEGATI VE mg/dL negati ve- Not Available [facility] (Lab) [address] [place], [address], 08/12/2023 14:19:58 08/12/20 23 08/12/2023 URINA LYSIS COMPL ETE/I RIS W/RFX blood NEGATI VE mg/dL negati ve- Not Available [facility] (Lab) [address] [place], [address], 08/12/2023 14:19:58 08/12/20 23 08/12/2023 URINA LYSIS COMPL ETE/I RIS W/RFX white blood cells 0-8 /i??h pfi?? 0-8 Not Available [facility] (Lab) [address] [place], [address], 08/12/2023 14:19:58 08/12/20 23 08/12/2023 URINA LYSIS COMPL ETE/I RIS W/RFX red blood cells 0-4 /i??h pfi?? 0-4 Not Available [facility] (Lab) [address] [place], [address], 08/12/2023 14:19:58 08/12/20 23 08/12/2023 URINA LYSIS COMPL ETE/I RIS W/RFX bacteria NONE Not Available [facility] ([facility]) [address] [place], [address], 08/12/2023 14:19:58 08/12/20 23 08/12/2023 URINA LYSIS COMPL ETE/I RIS W/RFX mucous OCCASI ONAL /i??l pfi?? abnormal Not Available [facility] (Lab) [address] [place], [address], 08/12/2023 14:19:58 08/12/20 23 08/12/2023 URINA LYSIS COMPL ETE/I RIS W/RFX squamous epithelial FEW /i??l pfi?? abnormal Not Available [facility] (Lab) [address] [place], [address], 08/12/2023 14:19:58 08/12/20 23 08/12/2023 COMPR EHENS ADRIAN METAB OLIC PANEL sodium 139 mmol/ L 137-14 5 Not Available [facility] (Lab) [address] [place], [address], 08/12/2023 14:30:11 08/12/20 23 08/12/2023 COMPR EHENS ADRIAN METAB OLIC PANEL potassium 4.1 mmol/ L 3.5-5. 1 Not Available [facility] (Lab) [address] [place], [address], 08/12/2023 14:30:11 08/12/20 23 08/12/2023 COMPR EHENS ADRIAN METAB OLIC PANEL chloride 103 mmol/ L 98-107 Not Available [facility] (Lab) [address] [place], [address], 08/12/2023 14:30:11 08/12/20 23 08/12/2023 COMPR EHENS ADRIAN METAB OLIC PANEL carbon dioxide 27 mmol/ L 22-30 Not Available [facility] (Lab) [address] [place], [address], 08/12/2023 14:30:11 08/12/20 23 08/12/2023 COMPR EHENS ADRIAN METAB OLIC PANEL anion gap 13.1 mmol/ L 14-22 low Not Available [facility] (Lab) [address] [place], [address], 08/12/2023 14:30:11 08/12/20 23 08/12/2023 COMPR EHENS ADRIAN METAB OLIC PANEL glucose 144 mg/dL 70-99 high Not Available [facility] (Lab) [address] [place], [address], 08/12/2023 14:30:11 08/12/20 23 08/12/2023 COMPR EHENS ADRIAN METAB OLIC PANEL BUN 15 mg/dL 8-19 Not Available [facility] (Lab) [address] [place], [address], 08/12/2023 14:30:11 08/12/20 23 08/12/2023 COMPR EHENS ADRIAN METAB OLIC PANEL creatinine 0.73 mg/dL 0.66-1 .25 Not Available [facility] (Lab) [address] [place], [address], 08/12/2023 14:30:11 08/12/20 23 08/12/2023 COMPR EHENS ADRIAN METAB OLIC PANEL GFR >60 Refer ence Range : Sherman ge GFR Healt hy Adult : >60 [...] calcu lator is avail able on the [facility] websi te: https ://rosalind mccrary.mayo husain.o xochitl/pr ofess ional s/kdo qi/gf r_cal culat or Not Available [facility] (Lab) [address] [place], [address], 08/12/2023 14:30:11 08/12/20 23 08/12/2023 COMPR EHENS ADRIAN METAB OLIC PANEL alkaline phosphatase 84 U/L 38-126 Not Available [facility] (Lab) [address] [place], [address], 08/12/2023 14:30:11 08/12/20 23 08/12/2023 COMPR EHENS ADRIAN METAB OLIC PANEL alanine aminotransfe rase 31 U/L 0-35 Not Available [facility] (Lab) [address] [place], [address], 08/12/2023 14:30:11 08/12/20 23 08/12/2023 COMPR EHENS ADRIAN METAB OLIC PANEL aspartate aminotransfe rase 29 U/L 15-37 Not Available [facility] (Lab) [address] [place], [address], 08/12/2023 14:30:11 08/12/20 23 08/12/2023 COMPR EHENS ADRIAN METAB OLIC PANEL bilirubin, total 0.70 mg/dL 0.20-1 .30 Not Available [facility] ([facility]) [address] [place], [address], 08/12/2023 14:30:11 08/12/20 23 08/12/2023 COMPR EHENS ADRIAN METAB OLIC PANEL calcium 9.7 mg/dL 8.4-10 .2 Not Available [facility] (Lab) [address] [place], [address], 08/12/2023 14:30:11 08/12/20 23 08/12/2023 COMPR EHENS ADRIAN METAB OLIC PANEL total protein 7.8 g/dL 6.3-8. 2 Not Available [facility] (Lab) [address] [place], [address], 08/12/2023 14:30:11 08/12/20 23 08/12/2023 COMPR EHENS ADRIAN METAB OLIC PANEL albumin 4.6 g/dL 3.4-5. 0 Not Available [facility] (Lab) [address] [place], [address], 08/12/2023 14:30:11 08/12/20 23 08/12/2023 COMPR EHENS ADRIAN METAB OLIC PANEL globulin 3.2 g/dL 2.6-4. 2 Not Available [facility] (Lab) [address] [place], [address], 08/12/2023 14:30:11 08/12/20 23 08/12/2023 COMPR EHENS ADRIAN METAB OLIC PANEL A/G ratio 1.4 ratio 1.0-2. 0 Not Available [facility] (Lab) [address] [place], [address], 08/12/2023 14:30:11 08/12/20 23 08/12/2023 VITAM IN D 25-HY DROXY vd25oh 74.9 NG/mL 30-100 Vitam in D Statu s: Defic ient: <20 ng/mL Insuf ficie nt: 20-29 ng/mL Suffi cient : 30-10 0 ng/mL Not Available [facility] (Lab) [address] [place], [address], 08/12/2023 15:11:31 08/12/20 23 08/12/2023 TSH W/REF RUBI FT4 TSH with reflex free T4 2.510 uIU/m L 0.465- 4.680 Not Available [facility] (Lab) [address] [place], [address], 08/12/2023 15:14:25 08/12/20 23 08/12/2023 VITAM IN B12 (JORGE ANDREEA ) vb12 668 pg/mL 239-93 1 Not Available [facility] (Lab) [address] [place], [address], 08/12/2023 15:28:07 08/12/20 23 08/12/2023 FOLAT E, SERUM /PLAS MA folate >20.0 NG/mL 2.76-2 0.0 Not Available [facility] (Lab) [address] [place], [address], 08/12/2023 15:28:18 08/12/20 23 08/12/2023 LIPID PANEL cholesterol 168 mg/dL 140-19 9 NIH KEON NSUS RECOM MENDA TION FOR ROOPA STERO L: ADULT CHILD LOW RISK: <200 <170 BORDE RLINE : <200- 239 ----- HIGH RISK: >240 >200 Not Available [facility] (Lab) [address] [place], [address], 08/12/2023 18:48:42 08/12/20 23 08/12/2023 LIPID PANEL triglyceride s 162 mg/dL 0-150 high NIH KEON NSUS REPOR T RECOM MENDA TION FOR TRIGL YCERI NICHO: ADULT CHILD LOW RISK: <150 ----- BODER LINE: 150-1 99 ----- HIGH RISK: >200 ----- Not Available [facility] (Lab) [address] [place], [address], 08/12/2023 18:48:42 08/12/20 23 08/12/2023 LIPID PANEL HDL cholesterol 53 mg/dL 40- Not Available [facility] (Lab) [address] [place], [address], 08/12/2023 18:48:42 08/12/20 23 08/12/2023 LIPID PANEL [...] WILL NOT BE REPOR MATHEW. Not Available [facility] (Lab) [address] [place], [address], 08/12/2023 18:48:42 08/12/20 23 08/12/2023 MAGNE SIUM magnesium 1.9 mg/dL 1.6-2. 3 Not Available [facility] (Lab) [address] [place], [address], 08/12/2023 18:48:52 11/29/19 24 11/30/2023 CBC (INCL UDES DIFF/ PLT) white blood cell count 6.7 thous and/u L 3.8-10 .8 normal Not Available [facility] [place] [address] [place], [address], 11/30/2023 01:03:25 11/29/19 24 11/30/2023 CBC (INCL UDES DIFF/ PLT) red blood cell count 4.42 shiloh on/uL 3.80-5 .10 normal Not Available [facility] [address], [address], 11/30/2023 01:03:25 11/29/19 24 11/30/2023 CBC (INCL UDES DIFF/ PLT) hemoglobin 12.9 g/dL 11.7-1 5.5 normal Not Available [address], [address], 11/30/2023 01:03:25 11/29/19 24 11/30/2023 CBC (INCL UDES DIFF/ PLT) hematocrit 38.6 % 35.0-4 5.0 normal Not Available [address], [address], 11/30/2023 01:03:25 11/29/19 24 11/30/2023 CBC (INCL UDES DIFF/ PLT) MCV 87.3 fL 80.0-1 00.0 normal Not Available [address], [address], 11/30/2023 01:03:25 11/29/19 24 11/30/2023 CBC (INCL UDES DIFF/ PLT) MCH 29.2 pg 27.0-3 3.0 normal Not Available [address], [address], 11/30/2023 01:03:25 11/29/19 24 11/30/2023 CBC (INCL UDES DIFF/ PLT) MCHC 33.4 g/dL 32.0-3 6.0 normal Not Available [address], [address], 11/30/2023 01:03:25 11/29/19 24 11/30/2023 CBC (INCL UDES DIFF/ PLT) RDW 12.9 % 11.0-1 5.0 normal Not Available [address], [address], 11/30/2023 01:03:25 11/29/19 24 11/30/2023 CBC (INCL UDES DIFF/ PLT) platelet count 322 thous and/u L 140-40 0 normal Not Available [address], [address], 11/30/2023 01:03:25 11/29/19 24 11/30/2023 CBC (INCL UDES DIFF/ PLT) MPV 10.4 fL 7.5-12 .5 normal Not Available [address], [address], 11/30/2023 01:03:25 11/29/19 24 11/30/2023 CBC (INCL UDES DIFF/ PLT) absolute neutrophils 3283 cells /uL 1500-7 800 normal Not Available [address], [address], 11/30/2023 01:03:25 11/29/19 24 11/30/2023 CBC (INCL UDES DIFF/ PLT) absolute lymphocytes 2600 cells /uL 850-39 00 normal Not Available [address], [address], 11/30/2023 01:03:25 11/29/19 24 11/30/2023 CBC (INCL UDES DIFF/ PLT) absolute monocytes 704 cells /uL 200-95 0 normal Not Available [address], [address], 11/30/2023 01:03:25 11/29/19 24 11/30/2023 CBC (INCL UDES DIFF/ PLT) absolute eosinophils 67 cells /uL 15-500 normal Not Available [facility] [address], [address], 11/30/2023 01:03:25 11/29/19 24 11/30/2023 CBC (INCL UDES DIFF/ PLT) absolute basophils 47 cells /uL 0-200 normal Not Available [facility] [address], [address], 11/30/2023 01:03:25 11/29/19 24 11/30/2023 CBC (INCL UDES DIFF/ PLT) neutrophils 49 % normal Not Available [address], [address], 11/30/2023 01:03:25 11/29/19 24 11/30/2023 CBC (INCL UDES DIFF/ PLT) lymphocytes 38.8 % normal Not Available [facility] [address], [address], 11/30/2023 01:03:25 11/29/19 24 11/30/2023 CBC (INCL UDES DIFF/ PLT) monocytes 10.5 % normal Not Available [address], [address], 11/30/2023 01:03:25 11/29/19 24 11/30/2023 CBC (INCL UDES DIFF/ PLT) eosinophils 1.0 % normal Not Available [facility] [address], [address], 11/30/2023 01:03:25 11/29/1911/30/2023 CBC (INCL UDES DIFF/ PLT) basophils 0.7 % normal Not Available [address], [address], 11/30/2023 01:03:25 11/29/1911/30/2023 HEMOG LOBIN A1C hemoglobin [...] Abbot t Archi tect c8000 platf orm. Pleas e be advis ed that [facility] will move hemog lobin A1c testi ng to the [facility] soon. In gener al, direc t alina rison of the resul ts from diffe rent platf orms is not recom jaxon d. Not Available [facility] [address], [address], 11/30/2023 01:03:27 08/16/20 24 08/17/2024 LIPID PANEL , STAND SALLIE cholesterol, total 117 mg/dL <200 normal Not Available [facility] [address], [address], 08/17/2024 07:08:31 08/16/20 24 08/17/2024 LIPID PANEL , STAND SALLIE HDL cholesterol 46 mg/dL > or = 50 low Not Available [facility] [address], [address], 08/17/2024 07:08:31 08/16/20 24 08/17/2024 LIPID PANEL , STAND SALLIE triglyceride s 100 mg/dL <150 normal Not Available [facility] [address], [address], 08/17/2024 07:08:31 08/16/20 24 08/17/2024 LIPID PANEL , STAND SALLIE LDL-choleste rol 52 mg/dL _(edelmira c) normal Refer ence range : <100 Norma able range <100 mg/dL for prima ry preve ntion ; <70 mg/dL for patie nts with CHD or diabe tic patie nts with > or = 2 CHD risk facto rs. LDL-C is now calcu lated using the [facility] kins isaiah saeed, which is a valid ated novel metho d jeanine falcony than the Fried caleb equat ion in the estim ation of LDL-C . Gloria saeed SS et al. GAB. 2013; 310(1 9): 2061- 2068 (http ://ed ucati on.Snapvine ediManifact. com/f aq/FA Q164) Not Available [address] [address] [place], [address], 08/17/2024 07:08:31 08/16/20 24 08/17/2024 LIPID PANEL , STAND SALLIE chol/HDLC ratio 2.5 (calc ) <5.0 normal Not Available [address], [address], 08/17/2024 07:08:31 08/16/20 24 08/17/2024 LIPID PANEL , STAND SALLIE non HDL cholesterol 71 mg/dL _(edelmira c) <130 normal For patie nts with diabe portillo plus 1 major ASCVD risk facto r, treat ing to a non-H DL-C goal of <100 mg/dL (LDL- C of <70 mg/dL ) is d[place] hay optio n. Not Available [address] [address] [place], [address], 08/17/2024 07:08:31 08/16/20 24 08/17/2024 ALBUM IN, RANDO M URINE W/CRE ATINI NE creatinine, random urine 7 mg/dL 20-275 low Not Available [address] [address] [place], [address], 08/17/2024 07:08:32 08/16/20 24 08/17/2024 ALBUM IN, RANDO M URINE W/CRE ATINI NE albumin, urine <0.2 mg/dL see note: normal Refer ence Range : Refer ence Range Not estab lishe d Not Available [address] [address] [place], [address], 08/17/2024 07:08:32 08/16/20 24 08/17/2024 ALBUM IN, [...] a diagn ostic categ ory. Not Available [facility] [address] [place], [address], 08/17/2024 07:08:32 08/16/20 24 08/17/2024 MAGNE SIUM magnesium 2.2 mg/dL 1.5-2. 5 normal Not Available [facility] [address] [place], [address], 08/17/2024 07:08:33 08/16/20 24 08/17/2024 COMPR EHENS ADRIAN METAB OLIC PANEL glucose 161 mg/dL 65-99 high Fasti ng refer ence inter [place] For someo ne witho ut known diabe portillo, a gluco se value >125 mg/dL indic ates that they may have diabe portillo and this shoul d be confi rmed with a follo w-up test. Not Available [facility] [address] [address] [place], [address], 08/17/2024 07:08:34 08/16/20 24 08/17/2024 COMPR EHENS ADRIAN METAB OLIC PANEL urea nitrogen (BUN) 14 mg/dL 7-25 normal Not Available [address], [address], 08/17/2024 07:08:34 08/16/20 24 08/17/2024 COMPR EHENS ADRIAN METAB OLIC PANEL creatinine 0.79 mg/dL 0.50-1 .05 normal Not Available [address], [address], 08/17/2024 07:08:34 08/16/20 24 08/17/2024 COMPR EHENS ADRIAN METAB OLIC PANEL eGFR 85 mL/mi n/1.7 3m2 > or = 60 normal Not Available [address], [address], 08/17/2024 07:08:34 08/16/20 24 08/17/2024 COMPR EHENS ADRIAN METAB OLIC PANEL BUN/creatini ne ratio SEE NOTE: (calc ) 6-22 Not Repor mathew: BUN and Creat inine are withi n refer ence range . Not Available [address], [address], 08/17/2024 07:08:34 08/16/20 24 08/17/2024 COMPR EHENS ADRIAN METAB OLIC PANEL sodium 137 mmol/ L 135-14 6 normal Not Available [address], [address], 08/17/2024 07:08:34 08/16/20 24 08/17/2024 COMPR EHENS ADRIAN METAB OLIC PANEL potassium 4.5 mmol/ L 3.5-5. 3 normal Not Available [address], [address], 08/17/2024 07:08:34 08/16/20 24 08/17/2024 COMPR EHENS ADRIAN METAB OLIC PANEL chloride 104 mmol/ L 98-110 normal Not Available [address], [address], 08/17/2024 07:08:34 08/16/20 24 08/17/2024 COMPR EHENS ADRIAN METAB OLIC PANEL carbon dioxide 27 mmol/ L 20-32 normal Not Available [address], [address], 08/17/2024 07:08:34 08/16/20 24 08/17/2024 COMPR EHENS ADRIAN METAB OLIC PANEL calcium 9.3 mg/dL 8.6-10 .4 normal Not Available [address], [address], 08/17/2024 07:08:34 08/16/20 24 08/17/2024 COMPR EHENS ADRIAN METAB OLIC PANEL protein, total 6.5 g/dL 6.1-8. 1 normal Not Available [address], [address], 08/17/2024 07:08:34 08/16/20 24 08/17/2024 COMPR EHENS ADRIAN METAB OLIC PANEL albumin 4.2 g/dL 3.6-5. 1 normal Not Available [address], [address], 08/17/2024 07:08:34 08/16/20 24 08/17/2024 COMPR EHENS ADRIAN METAB OLIC PANEL globulin 2.3 g/dL_ (calc ) 1.9-3. 7 normal Not Available [address], [address], 08/17/2024 07:08:34 08/16/20 24 08/17/2024 COMPR EHENS ADRIAN METAB OLIC PANEL albumin/glob ulin ratio 1.8 (calc ) 1.0-2. 5 normal Not Available [address], [address], 08/17/2024 07:08:34 08/16/20 24 08/17/2024 COMPR EHENS ADRIAN METAB OLIC PANEL bilirubin, total 0.4 mg/dL 0.2-1. 2 normal Not Available [address], [address], 08/17/2024 07:08:34 08/16/20 24 08/17/2024 COMPR EHENS ADRIAN METAB OLIC PANEL alkaline phosphatase 65 U/L 37-153 normal Not Available [address], [address], 08/17/2024 07:08:34 08/16/20 24 08/17/2024 COMPR EHENS ADRIAN METAB OLIC PANEL AST 20 U/L 10-35 normal Not Available [address], [address], 08/17/2024 07:08:34 08/16/20 24 08/17/2024 COMPR EHENS ADRIAN METAB OLIC PANEL ALT 23 U/L 6-29 normal Not Available [address], [address], 08/17/2024 07:08:34 08/16/20 24 08/17/2024 URINA LYSIS , COMPL ETE W/REF RUBI TO CULTU RE color YELLOW yellow normal Not Available [address], [address], 08/17/2024 07:08:35 08/16/20 24 08/17/2024 URINA LYSIS , COMPL ETE W/REF RUBI TO CULTU RE appearance CLEAR clear normal Not Available [address], [address], 08/17/2024 07:08:35 08/16/20 24 08/17/2024 URINA LYSIS , COMPL ETE W/REF RUIB TO CULTU RE specific gravity 1.005 1.001- 1.035 normal Not Available [address], [address], 08/17/2024 07:08:35 08/16/20 24 08/17/2024 URINA LYSIS , COMPL ETE W/REF RUBI TO CULTU RE pH 6.5 5.0-8. 0 normal Not Available [address], [address], 08/17/2024 07:08:35 08/16/20 24 08/17/2024 URINA LYSIS , COMPL ETE W/REF RUBI TO CULTU RE glucose 2+ negati ve abnormal Not Available [address], [address], 08/17/2024 07:08:35 08/16/20 24 08/17/2024 URINA LYSIS , COMPL ETE W/REF RUBI TO CULTU RE bilirubin NEGATI VE negati ve normal Not Available [address], [address], 08/17/2024 07:08:35 08/16/20 24 08/17/2024 URINA LYSIS , COMPL ETE W/REF RUBI TO CULTU RE ketones NEGATI VE negati ve normal Not Available [address], [address], 08/17/2024 07:08:35 08/16/20 24 08/17/2024 URINA LYSIS , COMPL ETE W/REF RUBI TO CULTU RE occult blood NEGATI VE negati ve normal Not Available [address], [address], 08/17/2024 07:08:35 08/16/20 24 08/17/2024 URINA LYSIS , COMPL ETE W/REF RUBI TO CULTU RE protein NEGATI VE negati ve normal Not Available [address], [address], 08/17/2024 07:08:35 08/16/20 24 08/17/2024 URINA LYSIS , COMPL ETE W/REF RUBI TO CULTU RE nitrite NEGATI VE negati ve normal Not Available [address], [address], 08/17/2024 07:08:35 08/16/20 24 08/17/2024 URINA LYSIS , COMPL ETE W/REF RUBI TO CULTU RE leukocyte esterase NEGATI VE negati ve normal Not Available [address] [place], [address], 08/17/2024 07:08:35 08/16/20 24 08/17/2024 URINA LYSIS , COMPL ETE W/REF RUBI TO CULTU RE WBC 0-5 /hpf < or = 5 normal Not Available [address], [address], 08/17/2024 07:08:35 08/16/20 24 08/17/2024 URINA LYSIS , COMPL ETE W/REF RUBI TO CULTU RE RBC NONE SEEN /hpf < or = 2 normal Not Available [address], [address], 08/17/2024 07:08:35 08/16/20 24 08/17/2024 URINA LYSIS , COMPL ETE W/REF RUBI TO CULTU RE squamous epithelial cells NONE SEEN /hpf < or = 5 normal Not Available [address], [address], 08/17/2024 07:08:35 08/16/20 24 08/17/2024 URINA LYSIS , COMPL ETE W/REF RUBI TO CULTU RE bacteria NONE SEEN /hpf none seen normal Not Available [address], [address], 08/17/2024 07:08:35 08/16/20 24 08/17/2024 URINA LYSIS , COMPL ETE W/REF RUBI TO CULTU RE hyaline cast NONE SEEN /lpf none seen normal Not Available [address], [address], 08/17/2024 07:08:35 08/16/20 24 08/17/2024 REFLE XIVE URINE CULTU RE reflexive urine culture NO CULTU RE INDIC ATED Not Available [address], [address], 08/17/2024 07:08:37 08/16/20 24 08/17/2024 CBC (INCL UDES DIFF/ PLT) white blood cell count 7.3 thous and/u L 3.8-10 .8 normal Not Available [address], [address], 08/17/2024 07:08:37 08/16/20 24 08/17/2024 CBC (INCL UDES DIFF/ PLT) red blood cell count 4.58 shiloh on/uL 3.80-5 .10 normal Not Available [address], [address], 08/17/2024 07:08:37 08/16/20 24 08/17/2024 CBC (INCL UDES DIFF/ PLT) hemoglobin 13.6 g/dL 11.7-1 5.5 normal Not Available [address], [address], 08/17/2024 07:08:37 08/16/20 24 08/17/2024 CBC (INCL UDES DIFF/ PLT) hematocrit 41.3 % 35.0-4 5.0 normal Not Available [address], [address], 08/17/2024 07:08:37 08/16/20 24 08/17/2024 CBC (INCL UDES DIFF/ PLT) MCV 90.2 fL 80.0-1 00.0 normal Not Available [address], [address], 08/17/2024 07:08:37 08/16/20 24 08/17/2024 CBC (INCL UDES DIFF/ PLT) MCH 29.7 pg 27.0-3 3.0 normal Not Available [address], [address], 08/17/2024 07:08:37 08/16/20 24 08/17/2024 CBC (INCL UDES DIFF/ PLT) MCHC 32.9 g/dL 32.0-3 6.0 normal For adult s, a sligh t decre ase in the calcu lated MCHC value (in the range of 30 to 32 g/dL) is most likel y not clini jose signi fican t; delorisev er, it shoul d be inter prete d with cauti on in corre latio n with other red cell cezar eters and the patie nt's clini edelmira condi tion. Not Available [address], [address], 08/17/2024 07:08:37 08/16/20 24 08/17/2024 CBC (INCL UDES DIFF/ PLT) RDW 12.5 % 11.0-1 5.0 normal Not Available [address], [address], 08/17/2024 07:08:37 08/16/20 24 08/17/2024 CBC (INCL UDES DIFF/ PLT) platelet count 319 thous and/u L 140-40 0 normal Not Available [address], [address], 08/17/2024 07:08:37 08/16/20 24 08/17/2024 CBC (INCL UDES DIFF/ PLT) MPV 10.3 fL 7.5-12 .5 normal Not Available [facility] [address], [address], 08/17/2024 07:08:37 08/16/20 24 08/17/2024 CBC (INCL UDES DIFF/ PLT) absolute neutrophils 3752 cells /uL 1500-7 800 normal Not Available [address], [address], 08/17/2024 07:08:37 08/16/20 24 08/17/2024 CBC (INCL UDES DIFF/ PLT) absolute lymphocytes 2628 cells /uL 850-39 00 normal Not Available [address], [address], 08/17/2024 07:08:37 08/16/20 24 08/17/2024 CBC (INCL UDES DIFF/ PLT) absolute monocytes 715 cells /uL 200-95 0 normal Not Available [address], [address], 08/17/2024 07:08:37 08/16/20 24 08/17/2024 CBC (INCL UDES DIFF/ PLT) absolute eosinophils 124 cells /uL 15-500 normal Not Available [address], [address], 08/17/2024 07:08:37 08/16/20 24 08/17/2024 CBC (INCL UDES DIFF/ PLT) absolute basophils 80 cells /uL 0-200 normal Not Available [address], [address], 08/17/2024 07:08:37 08/16/20 24 08/17/2024 CBC (INCL UDES DIFF/ PLT) neutrophils 51.4 % normal Not Available [address], [address], 08/17/2024 07:08:37 08/16/20 24 08/17/2024 CBC (INCL UDES DIFF/ PLT) lymphocytes 36.0 % normal Not Available [address], [address], 08/17/2024 07:08:37 08/16/20 24 08/17/2024 CBC (INCL UDES DIFF/ PLT) monocytes 9.8 % normal Not Available [address], [address], 08/17/2024 07:08:37 08/16/20 24 08/17/2024 CBC (INCL UDES DIFF/ PLT) eosinophils 1.7 % normal Not Available [address], [address], 08/17/2024 07:08:37 08/16/20 24 08/17/2024 CBC (INCL UDES DIFF/ PLT) basophils 1.1 % normal Not Available [address], [address], 08/17/2024 07:08:37 08/16/20 24 08/17/2024 VITAM IN B12/F OLATE , SERUM PANEL vitamin B12 508 pg/mL 200-11 00 normal Not Available [address], [address], 08/17/2024 07:08:39 08/16/20 24 08/17/2024 VITAM IN B12/F OLATE , SERUM PANEL folate, serum 19.4 NG/mL normal Refer ence Range Low: <3.4 Borde rline : 3.4-5 .4 Ada l: >5.4 Not Available [address], [address], 08/17/2024 07:08:39 08/16/20 24 08/17/2024 VITAM IN [...] /MS is recom jaxon d: order code 39684 (aris ents >2yrs ). See Note 1 Note 1 For addit ional infor marilynn jensen refer to http: //[facility] navarro Melo stDia gnost ics.c om/fa q/FAQ 199 (This link is being provi ded for infor trish chiu/ pawan [place] purpo ses only. ) Not Available [facility] [address] [place], [address], 08/17/2024 07:08:40 08/16/20 24 08/17/2024 HEMOG LOBIN [...] diabe portillo for child joseph. Not Available [facility] [address] [place], [address], 08/17/2024 07:08:41 08/03/20 23 08/03/2023 MAMMO , scree diya, bilat eral No observ ation record ed. [facility] [address], [place], [address], 08/12/2023 09:04:03 11/01/19 24 2023 MAMMO , diagn ostic , digit al, unila teral No observ ation record ed. [address], [place], [address], 12/01/2023 09:31:40 02/24/20 24 02/24/2024 US, thyro id No observ ation record ed. [address], [place], [address], 06/20/2024 09:14:31 03/10/20 24 03/09/2024 DEXA No observ ation record ed. [address] [address], [place], [address], 06/20/2024 09:14:31 06/29/20 24 06/29/2024 XR, chest , 2 view No observ ation record ed. [address] [facility], [place], [address], 08/15/2024 09:35:19 07/19/20 24 07/19/2024 US, doppl er echoc ardio gram No observ ation record ed. [address] [facility] [address], [place], [address], 08/15/2024 09:35:19 08/09/20 24 08/09/2024 MRI, lumba r spine , w/o contr ast No observ ation record ed. [address] [facility], [place], [address], 08/15/2024 09:35:19 Result Notes None recorded. Problems Name Problem SNOMED Code Status Onset Date Resolution Date Notes Provider Name and Address Organization Details Recorded Time Pain of bilateral knee joints 25852735010 4104 Active 2022 Spike Garcia MD [address], [address], [place], [address] , [place] [facility] 3 09:13:42 Mammograp hy abnormal 612647990 Active 2022 Spike Garcia MD [address], [address], [place], [address] , [place] [facility] 3 11:57:33 Chronic chest pain 93462881315 4101 Active 2023 Spike Garcia MD [address], [place], [address] , [place] [facility] 4 09:16:55 Chronic neck pain 19328046831 07 Active 2017 Not Available [facility] 3 04:50:36 Disorder of trunk 446976215 Completed Not Available [facility] 3 04:50:36 Chronic back pain 244483183 Active 2020 Not Available [facility] 3 04:50:36 Chronic thoracic back pain 66016312820 9103 Active 2017 Not Available [facility] 3 04:50:36 Hyperkale alexia 90126009 Active 2017 Not Available [facility] 3 04:50:36 Pain of bilateral hands 81282228742 224719 Active 2019 Not Available [facility] 3 04:50:36 Backache 691351520 Completed Not Available [facility] 3 04:50:36 Hypomagne semia 147854038 Active 2017 Not Available [facility] 3 04:50:36 Fibromyal esteban 451815855 Active 2017 Not Available [facility] 3 04:50:36 Abdominal pain 50022388 Completed Not Available [facility] 3 04:50:36 Gallstone 641700707 Active 2018 Not Available [facility] 3 04:50:37 Chronic constipat ion 847730181 Active 2017 Not Available [facility] 3 04:50:37 Overweigh t 747597103 Active 2021 Not Available [facility] 3 04:50:37 Degenerat ion of lumbar intervert ebral disc 86042456 Active 2019 Not Available [facility] 3 04:50:37 Gastroeso phageal reflux disease without esophagit is 700166425 Active 2017 Not Available [facility] 3 04:50:37 Anemia 640240984 Active 2017 Not Available [facility] 3 04:50:37 Chronic low back pain 139234374 Active 2017 Not Available [facility] 3 04:50:37 Knee pain Completed Not Available [facility] 3 04:50:37 Type 2 diabetes mellitus without complicat ion 795450129 Active 2017 Not Available [facility] 3 04:50:37 Blood in urine 73020260 Completed Not Available [facility] 3 04:50:38 Vitamin D deficienc y 38803494 Active 2019 Not Available [facility] 3 04:50:38 Dyslipide alexia 972054645 Active 2021 Not Available [facility] 3 04:50:38 Hypertens adrian disorder 64338278 Active 2017 Not Available [facility] 3 04:50:38 Neuropath y 052027874 Active 2017 Not Available [facility] 3 04:50:38 Adhesive capsuliti s of shoulder 775870174 Active Not Available [facility] 3 04:50:38 Hypothyro idism 75375404 Active 2019 Not Available [facility] 3 04:50:38 Vomiting 178879461 Completed Not Available [facility] 3 04:50:39 Latent autoimmun e diabetes mellitus in adult 141943772 Active 2021 Not Available [facility] 3 04:50:39 Chronic headache disorder 687062429 Active 2017 Not Available [facility] 3 04:50:39 Uncontrol led type 2 diabetes mellitus 338282904 Active 2022 Not Available [facility] 3 04:50:39 Pain of shoulder region 17659619 Completed Not Available [facility] 3 04:50:39 Hyperlipi demia 89500100 Active Not Available [facility] 3 04:50:39 Migraine without aura 84177716 Completed 201705/03/2018 Not Available [facility] 3 04:50:39 Vitamin B12 deficienc y (non anemic) 10207214 Active 2017 Not Available [facility] 3 04:50:40 Osteoporo sis 89795702 Active 2017 Not Available [facility] 3 04:50:40 Hypercalc emia 96030767 Completed Not Available [facility] 3 04:50:40 Liver enzymes level above reference range 458523405 Active 2019 Not Available [facility] 3 04:50:40 Diabetes mellitus 70878801 Active 2019 Not Available [facility] 3 04:50:40 Chronic idiopathi c constipat ion 51986213 Active 2020 Not Available [facility] 3 04:50:41 Fatigue 10370708 Active 2017 Not Available [facility] 3 04:50:41 Degenerat ion of thoracolu mbar intervert ebral disc 05112585 Active 2017 Not Available [facility] 3 04:50:41 Kidney stone 78447926 Active Not Available [facility] 3 04:50:41 Notes:BACK/NECK PROBLEMS Problem Notes None recorded. Procedures Surgical History Date Name Laterality Status Provider Name and Address Organization Details Recorded Time 02/10/20 17 Most Recent Bone Density completed Not Available [facility] 11/25/2022 04:42:05 09/27/19 14 Date of Last Colonoscopy completed Not Available [facility] 11/25/2022 04:42:05 cystoscopy completed Not Available [facility] 11/25/2022 04:42:10 Kidney Stones completed Not Available [facility] 11/25/2022 04:42:10 Imaging Results Imaging Date Name Status LastModified by Organization Details LastModified Time 08/03/2023 MAMMO, screening, bilateral completed [address], [address], 08/12/2023 09:04:03 2023 MAMMO, diagnostic, digital, unilateral completed [address], [address], 12/01/2023 09:31:40 02/24/2024 US, thyroid completed [address], [address], 06/20/2024 09:14:31 03/09/2024 DEXA completed [address], [address], 06/20/2024 09:14:31 06/29/2024 XR, chest, 2 view completed [address] [place], [address], 08/15/2024 09:35:19 07/19/2024 US, doppler echocardiogram completed [address] [facility] [address], [place], [address], 08/15/2024 09:35:19 08/09/2024 MRI, lumbar spine, w/o contrast completed [address], [address], 08/15/2024 09:35:19 Procedure Notes None recorded. Medical [...]
== END 2025-01-24 07:56 | disposition home or self-care (01) ==
LOC: ANHIMG 07:57
PROVIDERS: PCP Family Medicine; Visit Provider Family Medicine
DX: Z12.31 Encounter for screening mammogram for malignant neoplasm of breast (principal); R92.8 Other abnormal and inconclusive findings on diagnostic imaging of breast
CPT/HCPCS: 77063; 77067